=== PATIENT | male | born 1960 | race Caucasian/White ===

== ENCOUNTER 2017-05-28 12:48 | Inpatient (IN) | payer OTHER ==
[2017-05-28 13:30] VITALS: BMI 26.2
--- NOTE | 2017-05-28 13:34 | PDOC ---
History of Present Illness - General Chief Complaint: Urinary Catheter Problem Stated Complaint: URINARY CATHETER Time Seen by Provider: 05/28/17 12:54 History Source: Patient Exam Limitations: No Limitations - History of Present Illness Initial Comments: 56 yo M s/p recent placement of jaime catheter at [place] due to urinary retention. He states that due to passing a large amount of urine, he was admitted to the hospital for monitoring of ins/outs. He states that the catheter has been in place for 10 days now, and he has started to notice leakage of purulent material from his penis. The urine itself is yellow and clear, and flows freely. He denies fever, chills, but he does state he has left lower abdominal discomfort. Past History - Past Medical History Allergies/Adverse Reactions: Allergies Allergy/AdvReac Type Severity Reaction Status Date / Time Penicillins Allergy Intermediate Hives Verified 05/28/17 12:58 cat pelt standardized Allergy Verified 05/28/17 12:58 allergenic ex [Cat Pelt Std Extract] Home Medications: Ambulatory Orders Acetaminophen [Tylenol Extra Strength] 1,000 mg PO Q4H PRN 05/28/17 Amlodipine Besylate [Norvasc -] 10 mg PO DAILY 05/28/17 Ciprofloxacin HCl [Cipro] 500 mg PO BID 05/28/17 Ibuprofen [Advil -] 400 mg PO QID PRN 05/28/17 Loratadine [Claritin] 10 mg PO HS 05/28/17 Metoprolol Tartrate [Lopressor] 50 mg PO BID 05/28/17 Ranitidine [Zantac -] 150 mg PO BID 05/28/17 Tamsulosin HCl [Flomax] 0.4 mg PO HS 05/28/17 Anemia: Yes Asthma: No Cancer: Yes (PROSTATE) Cardiac Disorders: Yes (NONSUSTAINED VT) CVA: No COPD: No CHF: No Dementia: No Diabetes: No GI Disorders: No Disorders: Yes (BPH, HYDRONEPHROSIS, URINARY RETETNION, OBSTRUCTIVE UROPATHY) HTN: Yes Hypercholesterolemia: No HIV: No (TESTED MAY 2017) Liver Disease: No Seizures: No Thyroid Disease: No - Surgical History Abdominal Surgery: No Appendectomy: No Cardiac Surgery: No Cholecystectomy: No Lung Surgery: No Neurologic Surgery: No Orthopedic Surgery: Yes (01/2012) - Psycho/Social/Smoking Cessation Hx Anxiety: Yes Suicidal Ideation: No Smoking History: Former smoker Have you smoked in the past 12 months: No Number of Cigarettes Smoked Daily: 0 If you are a former smoker, when did you quit?: 1998 Information on smoking cessation initiated: No 'Breaking Loose' booklet given: 01/26/14 Hx Alcohol Use: No Drug/Substance Use Hx: No Substance Use Type: None Review of Systems - Review of Systems Able to Perform ROS?: Yes Comments:: GENERAL/CONSTITUTIONAL: No fever or chills. No weakness. HEAD, EYES, EARS, NOSE AND THROAT: No change in vision. No ear pain or discharge. No sore throat. CARDIOVASCULAR: No chest pain or shortness of breath. RESPIRATORY: No cough, wheezing, or hemoptysis. GASTROINTESTINAL: No nausea, vomiting, diarrhea or constipation. GENITOURINARY: Jaime in place, with leakage of pus from the penile head. Clear yellow urine in the bag. MUSCULOSKELETAL: No joint or muscle swelling or pain. No neck or back pain. SKIN: No rash NEUROLOGIC: No headache, vertigo, loss of consciousness, or change in strength/ sensation. ENDOCRINE: No increased thirst. No abnormal weight change. HEMATOLOGIC/LYMPHATIC: No anemia, easy bleeding, or history of blood clots. ALLERGIC/IMMUNOLOGIC: No hives or skin allergy. *Physical Exam - Vital Signs Last Vital Signs Temp Pulse Resp BP Pulse Ox 98.4 F 78 15 156/100 95 05/28/17 12:51 05/28/17 12:51 05/28/17 12:51 05/28/17 12:51 05/28/17 12:51 - Physical Exam Comments: GENERAL: Awake, alert, and fully oriented, in no acute distress HEAD: No signs of trauma EYES: PERRLA, EOMI, sclera anicteric, conjunctiva clear ENT: Auricles normal inspection, hearing grossly normal, nares patent, oropharynx clear without exudates. Moist mucosa NECK: Normal ROM, supple, no lymphadenopathy, JVD, or masses LUNGS: Breath sounds equal, clear to auscultation bilaterally. No wheezes, and no crackles HEART: Regular rate and rhythm, normal S1 and S2, no murmurs, rubs or gallops ABDOMEN: Soft, minimal LLQ tenderness, normoactive bowel sounds. No guarding, no rebound. No masses EXTREMITIES: Normal range of motion, no edema. No clubbing or cyanosis. No cords , erythema, or tenderness NEUROLOGICAL: Cranial nerves II through XII grossly intact. Normal speech, normal gait SKIN: Warm, Dry, normal turgor, no rashes or lesions noted. : No external lesions. +Passage of purulent material from the penile head, around the jaime itself. No visible lesions. ED Treatment Course - LABORATORY CBC & Chemistry Diagram: 05/28/17 14:55 05/28/17 14:55 Medical Decision Making - Medical Decision Making 05/28/17 14:43 Suspect a urethritis secondary to jaime catheter. Case d/w Dr. Laureano, ID. Recommended removing the catheter to visualize how far up the purulent material was. There was purulent material all the way to the balloon itself as I removed the catheter. I will give a dose of meropenem as per his recommendation. Will plan for admission. 05/28/17 15:52 Dr. Laureano at bedside to evaluate. Suspicion of prostatitis vs prostatic abscess. Recommended transrectal ultrasound to further evaluate. *DC/Admit/Observation/Transfer Diagnosis at time of Disposition: Urethritis, Urethral abscess, Prostatitis Problem with Jaime catheter Qualifiers: Encounter type: initial encounter Qualified Code(s): T83.9XXA - Unspecified complication of genitourinary prosthetic device, implant and graft, initial encounter - Discharge Dispostion Condition at time of disposition: Stable Admit: Yes - Referrals
[2017-05-28 13:40] LABS: PH,URINE 5.5 (4.5-8); URINE APPEARANCE Clear; URINE BILIRUBIN Negative (NEGATIVE); URINE GLUCOSE (UA) Negative (NEGATIVE); URINE KETONE Negative (NEGATIVE); URINE NITRITE Negative (NEGATIVE); URINE UROBILINOGEN 0.2 (0.2-1.0)
[2017-05-28 13:42] LABS: URINE BLOOD 2+ (NEGATIVE)
[2017-05-28 13:43] LABS: URINE COLOR YELLOW; URINE LEUK ESTERASE 1+ (NEGATIVE); URINE PROTEIN 2+ (NEGATIVE)
[2017-05-28 13:49] LABS: URINE BACTERIA FEW /hpf (NEGATIVE); URINE RBC 20-40 /hpf (0-3); URINE WBC 0-2 (3-5)
[2017-05-28] MEDS ORDERED: MEROPENEM 1 GM in DEXTROSE 5%-WATER - 100 ML IVPB ONE (14:22)
[2017-05-28 15:10] LABS: BASOPHIL 0.8 % (0-2.0); EOSINOPHIL 3.2 % (0-4.5); MCH 29.8 pg (25.7-33.7); MCHC 33.7 g/dl (32.0-35.9); MEAN CELL VOLUME 88.3 fl (80-96); MEAN PLT VOLUME 7.5 fl (7.5-11.1); NEUTROPHILS 65.2 % (42.8-82.8); PLATELET COUNT 504 K/MM3 (134-434); RDW 11.8 % (11.9-15.9); WHITE BLOOD COUNT 9.5 K/mm3 (4.0-10.8)
[2017-05-28 15:28] LABS: ALK PHOS 74 U/L (32-92); ANION GAP 4 (8-16); BILIRUBIN,TOTAL 0.4 mg/dl (0.2-1.0); CALCIUM 8.9 mg/dl (8.4-10.2); CO2 27 mmol/L (22-28); GLUCOSE,RANDOM 95 mg/dl (74-106); SGOT/AST 16 U/L (10-42); SGPT/ALT 17 U/L (10-40); TOT PROT 6.6 g/dl (6.4-8.3)
--- NOTE | 2017-05-28 16:13 | CONSULT ---
Consult Consult Specialty:: infectious diseases Reason for Consultation:: uretheral infection,abscess - History of Present Illness Chief Complaint: suprapubic pain History of Present Illness: 56 yo M s/p recent placement of jaime catheter at [place] due to urinary retention. He states that due to passing a large amount of urine, he was admitted to the hospital for monitoring of ins/outs. He states that the catheter has been in place for 10 days now, and he has started to notice leakage of purulent material from his penis. The urine itself is yellow and clear, and flows freely. He denies fever, chills, but he does state he has left lower abdominal discomfort. patient mentions that he was diagnosed with two things one was enlarged prostate and psycogenic polydipsia patient was also placed on cipro and he is currently taking the same inspite of that patient developed pus around the catheter around the penis when the the catheter was removed the pus extended to the tip of the catheter patient denies any fever or any other issues of note according to the patient is that patient had psa of 16 according to the patient and the last psa i saw on the discharge summary from [facility] was around 29 which is quite a bit of jump patient c/o of suprapubic pain - History Source History Provided By: Patient Limitations to Obtaining History: No Limitations - Alcohol/Substance Use Hx Alcohol Use: No - Smoking History Smoking history: Former smoker Have you smoked in the past 12 months: No Aproximately how many cigarettes per day: 0 If you are a former smoker, when did you quit?: 1998 Home Medications - Allergies Allergies/Adverse Reactions: Allergies Allergy/AdvReac Type Severity Reaction Status Date / Time Penicillins Allergy Intermediate Hives Verified 05/28/17 12:58 cat pelt standardized Allergy Verified 05/28/17 12:58 allergenic ex [Cat Pelt Std Extract] - Home Medications Home Medications: Ambulatory Orders Acetaminophen [Tylenol Extra Strength] 1,000 mg PO Q4H PRN 05/28/17 Amlodipine Besylate [Norvasc -] 10 mg PO DAILY 05/28/17 Ciprofloxacin HCl [Cipro] 500 mg PO BID 05/28/17 Ibuprofen [Advil -] 400 mg PO QID PRN 05/28/17 Loratadine [Claritin] 10 mg PO HS 05/28/17 Metoprolol Tartrate [Lopressor] 50 mg PO BID 05/28/17 Ranitidine [Zantac -] 150 mg PO BID 05/28/17 Tamsulosin HCl [Flomax] 0.4 mg PO HS 05/28/17 Review of Systems - Review of Systems Constitutional: reports: No Symptoms Eyes: reports: No Symptoms HENT: reports: No Symptoms Neck: reports: No Symptoms Cardiovascular: reports: No Symptoms Respiratory: reports: No Symptoms Gastrointestinal: reports: No Symptoms Genitourinary: reports: Dysuria, Pain, Other (suprapubic pain) Musculoskeletal: reports: No Symptoms Integumentary: reports: No Symptoms Neurological: reports: No Symptoms Endocrine: reports: No Symptoms Hematology/Lymphatic: reports: No Symptoms Psychiatric: reports: No Symptoms Physical Exam Vital Signs: Vital Signs Temperature 98.4 F 05/28/17 12:51 Pulse Rate 78 05/28/17 15:14 Respiratory Rate 15 05/28/17 15:14 Blood Pressure 136/76 05/28/17 15:14 O2 Sat by Pulse Oximetry (%) 97 05/28/17 15:14 Constitutional: Yes: Well Nourished, No Distress, Calm HENT: Yes: Atraumatic Neck: Yes: Supple, Trachea Midline Cardiovascular: Yes: Regular Rate and Rhythm Respiratory: Yes: Regular, CTA Bilaterally Gastrointestinal: Yes: Normal Bowel Sounds, Soft Renal/: Yes: Other (foleys removed suprapubic tenderness) Musculoskeletal: Yes: WNL Extremities: Yes: WNL Neurological: Yes: Alert, Oriented Psychiatric: Yes: Alert, Oriented Labs: CBC, BMP 05/28/17 14:55 05/28/17 14:55 Assessment/Plan 58yM with PMH enlarged prostate with elevated PSA, Anemia secondary to GI bleed , HTN, ?nonsustained VT, degenerative spinal disease presented to the ED with pus leakage around jaime catheter. Urethritis r/o prostatic abscess urinary retention HTN currently foleys is out and we will wait to see if the patient passes urine plan we will start patient on abx await all cx report urology to see the aptient u/s of the prostate repeat psa monitor for fevers and wbc rest as per primary
[2017-05-28] MEDS ORDERED: SODIUM CHLORIDE 1,000 ML IV SCH (18:30)
[2017-05-28] MEDS ORDERED: ACETAMINOPHEN 325 MG TABLET (FP) PO PRN (18:31)
[2017-05-28] MEDS: TAMSULOSIN HCL 0.4 MG CAP.ER.24H (FP) PO SCH (21:27)
[2017-05-28] MEDS: METOPROLOL TARTRATE 50 MG TABLET (FP) PO SCH (21:27)
[2017-05-28] MEDS: RANITIDINE HCL 150 MG TABLET (FP) PO SCH (21:27)
[2017-05-28] MEDS: LORATADINE 10 MG TABLET PO SCH (21:27)
--- NOTE | 2017-05-28 22:13 | HP ---
CHIEF COMPLAINT: pus around jaime catheter PCP: Vikram Hobbs HISTORY OF PRESENT ILLNESS: This is a 56 year old male with a past medical history of elevated PSA and enlarged prostate, never worked up, HTN, non sustained VT, anemia secondary to GI bleed, degenerative spinal disease presented to the ED with pus coming from around his jaime cathter. Pt was hospitalized at [facility] from 05/18-05/24 with urinary retention; he reports a CT and sonogram of his bladder was done there which showed hydronephrosis and 20% kidney function reduction. He was discharged home with a jaime catheter in place and started on flomax and cipro. He was also restarted on his BP medications (he had stopped them due to financial concerns). Pt reports that he had fever and chills prior to his hospitalization there but none since discharge, only extreme fatigue. Pt also reports intermittent abdominal pain. He reports that his back pain has been recurring due to his frequent trips to the bathroom and sitting on the toilet. Pt reports constipation at times, worsening prior to hospitalization at [facility], ultimately required disimpaction as per pt. Last BM this am, normal. ER course was notable for: (1) WBC 9.5 (2) FC removed with pus noted to balloon head Recent Travel: pt denies PAST MEDICAL HISTORY: Urinary retention, elevated PSA, enlarged prostate Anemia due to GI bleed 2014 Nonsustained VT (as per ED note, pt unsure if he ever had it) HTN degenerative spinal disease PAST SURGICAL HISTORY: L4-L5 fusion cyst removed from groin Social History: Smoking: quit 8.5y ago, previous 45 pack year history Alcohol: pt denies Drugs: pt denies Family History: Father age 80, sudden cardiac , prostate CA age 68, radical prostatectomy, OA, DM, Alzheimers Mother age 84, sepsis, CVA, HTN, gallstones sister alive, back problems, HTN Brother alive, DM, HTN Brother alive, renal colic and renal issues Allergies Penicillins Allergy (Intermediate, Verified 05/28/17 12:58) Hives cat pelt standardized allergenic ex [Cat Pelt Std Extract] Allergy (Verified 12:58) HOME MEDICATIONS: 3 Medication Instructions Recorded Acetaminophen [Tylenol Extra 1,000 mg PO Q4H PRN 05/28/17 Strength] Amlodipine Besylate [Norvasc -] 10 mg PO DAILY 05/28/17 Ciprofloxacin HCl [Cipro] 500 mg PO BID 05/28/17 Ibuprofen [Advil -] 400 mg PO QID PRN 05/28/17 Loratadine [Claritin] 10 mg PO HS 05/28/17 Metoprolol Tartrate [Lopressor] 50 mg PO BID 05/28/17 Ranitidine [Zantac -] 150 mg PO BID 05/28/17 Tamsulosin HCl [Flomax] 0.4 mg PO HS 05/28/17 REVIEW OF SYSTEMS CONSTITUTIONAL: Absent: fever, chills, diaphoresis, generalized weakness, malaise, loss of appetite, weight change HEENT: Absent: rhinorrhea, nasal congestion, throat pain, throat swelling, difficulty swallowing, mouth swelling, ear pain, eye pain, visual changes CARDIOVASCULAR: Absent: chest pain, syncope, palpitations, irregular heart rate, lightheadedness , peripheral edema RESPIRATORY: Absent: cough, shortness of breath, dyspnea with exertion, orthopnea, wheezing, stridor, hemoptysis GASTROINTESTINAL: Present: abdominal pain Absent: abdominal distension, nausea, vomiting, diarrhea, constipation, melena, hematochezia GENITOURINARY: Present: dysuria, frequency, urgency, hesitancy Absent: hematuria, flank pain, genital pain MUSCULOSKELETAL: back pain Absent: myalgia, arthralgia, joint swelling, neck pain SKIN: Absent: rash, itching, pallor HEMATOLOGIC/IMMUNOLOGIC: Absent: easy bleeding, easy bruising, lymphadenopathy, frequent infections ENDOCRINE: Absent: unexplained weight gain, unexplained weight loss, heat intolerance, cold intolerance NEUROLOGIC: Absent: headache, focal weakness or paresthesias, dizziness, unsteady gait, seizure, mental status changes, bladder or bowel incontinence PSYCHIATRIC: Absent: anxiety, depression, suicidal or homicidal ideation, hallucinations. PHYSICAL EXAMINATION Vital Signs - 24 hr 3 05/28/17 05/28/17 05/28/17 05/28/17 12:51 15:14 16:25 21:00 Temperature 98.4 F 98.6 F Pulse Rate 78 77 Pulse Rate [ 78 Right Radial] Respiratory 15 15 16 16 Rate Blood Pressure 156/100 152/92 Blood Pressure 136/76 [Left Arm] O2 Sat by Pulse 95 97 97 Oximetry (%) GENERAL: Awake, alert, and fully oriented, in no acute distress. HEAD: Normal with no signs of trauma. EYES: Pupils equal, round and reactive to light, extraocular movements intact, sclera anicteric, conjunctiva clear. No lid lag. EARS, NOSE, THROAT: Ears normal, nares patent, oropharynx clear without exudates. Moist mucous membranes. NECK: Normal range of motion, supple without lymphadenopathy, JVD, or masses. LUNGS: Breath sounds equal, clear to auscultation bilaterally. No wheezes, and no crackles. No accessory muscle use. HEART: Regular rate and rhythm, normal S1 and S2 without murmur, rub or gallop. ABDOMEN: Soft, not distended, normoactive bowel sounds, no guarding, no rebound , no masses. No hepatomegaly or splenomegaly. tender RLQ on deep palpation MUSCULOSKELETAL: Normal range of motion at all joints. No bony deformities or tenderness. No CVA tenderness. UPPER EXTREMITIES: 2+ pulses, warm, well-perfused. No cyanosis. No clubbing. No peripheral edema. LOWER EXTREMITIES: 2+ pulses, warm, well-perfused. No calf tenderness. No peripheral edema. NEUROLOGICAL: Cranial nerves II-XII intact. Normal speech. Normal gait. PSYCHIATRIC: Cooperative. Good eye contact. Appropriate mood and affect. SKIN: Warm, dry, normal turgor, no rashes or lesions noted, normal capillary refill. Laboratory Results - last 24 hr 3 05/28/17 05/28/17 05/28/17 13:30 14:55 14:55 WBC 9.5 D RBC 4.83 D Hgb 14.4 D Hct 42.7 D MCV 88.3 MCH 29.8 MCHC 33.7 RDW 11.8 L D Plt Count 504 H MPV 7.5 D Neutrophils % 65.2 Lymphocytes % 22.1 Monocytes % 8.7 Eosinophils % 3.2 D Basophils % 0.8 D Sodium 138 Potassium 4.5 D Chloride 107 Carbon Dioxide 27 Anion Gap 4 L BUN 16 D Creatinine 1.0 D Creat Clearance w eGFR > 60 Random Glucose 95 D Calcium 8.9 Total Bilirubin 0.4 AST 16 ALT 17 Alkaline Phosphatase 74 D Total Protein 6.6 D Albumin 4.0 D Urine Color Yellow Urine Appearance Clear Urine pH 5.5 Ur Specific Heppner 1.015 Urine Protein 2+ H Urine Glucose (UA) Negative Urine Ketones Negative Urine Blood 2+ H Urine Nitrite Negative Urine Bilirubin Negative Urine Urobilinogen 0.2 Ur Leukocyte Esterase 1+ H Urine RBC 20-40 Urine WBC 0-2 Urine Bacteria Few ASSESSMENT/PLAN: 58yM with PMH enlarged prostate with elevated PSA, Anemia secondary to GI bleed , HTN, ?nonsustained VT, degenerative spinal disease presented to the ED with pus leakage around jaime catheter. Urethritis vs prostate abscess - transrectal US ordered for tomorrow - ID consult appreciated, cont meropenem - urology consult urinary retention - FC removed by ED, no urine output, bladder scan 800, FC replaced - cont FC HTN - cont metoprolol, norvasc, BP slightly elevated, cont to monitor and adjust back pain/degenerative spinal disease - will start trial of flexeril 5mg BID and titrate to effect - no nSAIDs given possible need for surgical intervention of prostate Chronic constipation - miralax PRN DVT PPX - heparin 5000u BID FEN - pt tolerating po intake, dc IVF - BMP in am - low sodium diet Dispo: Pt currently requires inpatient management for his emergent condition. Visit type - Emergency Visit Emergency Visit: Yes ED Registration Date: 05/28/17 Care time: The patient presented to the Emergency Department on the above date and was hospitalized for further evaluation of their emergent condition. - New Patient This patient is new to me today: Yes Date on this admission: 05/28/17 - Critical Care Critical Care patient: No
[2017-05-28] MEDS ORDERED: POLYETHYLENE GLYCOL 3350 119 GM BTL PO PRN (23:33)
[2017-05-28] MEDS: CYCLOBENZAPRINE HCL 10 MG TABLET (FP) PO SCH (23:53)
[2017-05-29] MEDS: MEROPENEM 1 GM in DEXTROSE 5%-WATER - 100 ML IVPB SCH ×3 (01:14→17:27)
--- NOTE | 2017-05-29 08:34 | PN ---
Physical Exam: SUBJECTIVE: Patient seen and examined, reports feeling well, denies any tactile fever or chills. OBJECTIVE: Patient is a 56 year old male with a past medical history of elevated PSA and enlarged prostate, HTN, non sustained VT, anemia secondary to GI bleed, degenerative spinal disease. Patient was recently discharged from [facility] on 05/24/17 following a 6 day admission for obstructive uropathy secondary to enlarged prostate. Patient was admitted from the emergency department for urinary retention. Vital Signs Period Temp Pulse Resp BP Sys/Cordero Pulse Ox Last 24 Hr 98.5 F-98.7 F 75-82 16-20 129-150/60-76 96-97 PHYSICAL EXAM GENERAL: The patient is awake, alert, and fully oriented, in no acute distress. HEAD: Normal with no signs of trauma. EYES: PERRL, extraocular movements intact, sclera anicteric, conjunctiva clear. No ptosis. ENT: Ears normal, nares patent, oropharynx clear without exudates, moist mucous membranes. NECK: Trachea midline, full range of motion, supple. LUNGS: Breath sounds equal, clear to auscultation bilaterally, no wheezes, no crackles, no accessory muscle use. HEART: Regular rate and rhythm, S1, S2 without murmur, rub or gallop. ABDOMEN: Soft, nontender, nondistended, normoactive bowel sounds, no guarding, no rebound, no hepatosplenomegaly, no masses. + Suprapubic tenderness, yellow urine with sediment draining EXTREMITIES: 2+ pulses, warm, well-perfused, no edema. NEUROLOGICAL: Cranial nerves II through XII grossly intact. Normal speech, gait not observed. PSYCH: Normal mood, normal affect. SKIN: Warm, dry, normal turgor, no rashes or lesions noted Active Medications Generic Name Dose Route Start Last Admin Trade Name Freq PRN Reason Stop Dose Admin Acetaminophen 650 mg 05/28/17 18:31 Tylenol - PO Q4H PRN FEVER OR PAIN Amlodipine Besylate 10 mg 05/29/17 10:00 Norvasc - PO DAILY ORIN Cyclobenzaprine HCl 5 mg 05/28/17 23:45 05/28/17 23:53 Flexeril - PO 5 mg BID ORIN Administration Heparin Sodium (Porcine) 5,000 unit 05/29/17 10:00 Heparin - SQ BID ORIN Meropenem 1 gm/ Dextrose 100 mls @ 100 mls/hr 05/29/17 02:00 05/29/17 01:14 IVPB 100 mls/hr Q8H-IV ORIN Administration Protocol Sodium Chloride 1,000 mls @ 75 mls/hr 05/28/17 18:30 05/28/17 19:00 Normal Saline - IV 75 mls/hr ASDIR ORIN Administration Loratadine 10 mg 05/28/17 22:00 05/28/17 21:27 Claritin - PO 10 mg HS ORIN Administration Metoprolol Tartrate 50 mg 05/28/17 22:00 05/28/17 21:27 Lopressor - PO 50 mg BID ORIN Administration Polyethylene Glycol 17 gm 05/28/17 23:33 Miralax (For Daily Use) - PO DAILY PRN CONSTIPATION Ranitidine HCl 150 mg 05/28/17 22:00 05/28/17 21:27 Zantac - PO 150 mg BID ORIN Administration Tamsulosin HCl 0.4 mg 05/28/17 22:00 05/28/17 21:27 Flomax - PO 0.4 mg HS ORIN Administration ASSESSMENT/PLAN: 1) urinary retention - continue folley cather - continue flomax - strict i/o - pending ultrasound of kidney/bladder Urethritis - unlikely prostate abscess, pt is not toxic appearing - pending urine culture - gonnorhea/chlamydia ordered - continue meropenum as per ID (Georgi) - appreciate the input of urology 2) card HTN - continue metoprolol and norvasc - b/p at goal 3)musc back pain/degenerative spinal disease - flexeril tid prn DVT PPX - heparin 5000u BID FEN - pt tolerating po intake, dc IVF - low sodium diet Dispo: Pt currently requires inpatient management for his emergent condition. Visit type - Emergency Visit Emergency Visit: Yes ED Registration Date: 05/28/17 Care time: The patient presented to the Emergency Department on the above date and was hospitalized for further evaluation of their emergent condition. - New Patient This patient is new to me today: Yes Date on this admission: 05/29/17 - Critical Care Critical Care patient: No - Discharge Referral Referred to [facility] Med P.C.: No
[2017-05-29 09:32] LABS: BASOPHIL 0.4 % (0-2.0); EOSINOPHIL 3.7 % (0-4.5); MCHC 33.7 g/dl (32.0-35.9); MEAN CELL VOLUME 89.1 fl (80-96); MEAN PLT VOLUME 7.9 fl (7.5-11.1); NEUTROPHILS 65.4 % (42.8-82.8); PLATELET COUNT 478 K/MM3 (134-434); RDW 11.8 % (11.9-15.9); WHITE BLOOD COUNT 11.4 K/mm3 (4.0-10.8)
[2017-05-29] MEDS ORDERED: PT OWN MED DRAWER 7, Y5N ONE ×2 (09:32→17:19)
[2017-05-29] MEDS: CYCLOBENZAPRINE HCL 10 MG TABLET (FP) PO SCH (09:38)
[2017-05-29] MEDS: amLODIPine BESYLATE 10 MG TABLET (FP) PO SCH (09:39)
[2017-05-29] MEDS: METOPROLOL TARTRATE 50 MG TABLET (FP) PO SCH ×2 (09:39→21:24)
[2017-05-29] MEDS: RANITIDINE HCL 150 MG TABLET (FP) PO SCH ×2 (09:39→21:24)
[2017-05-29] MEDS: HEPARIN NA (PORCINE) 5,000 UNITS/ML 1ML VIAL SQ SCH ×2 (09:40→21:24)
[2017-05-29] MEDS ORDERED: CYCLOBENZAPRINE HCL 10 MG TABLET (FP) PO PRN (09:56)
[2017-05-29 10:03] LABS: ANION GAP 5 (8-16); CO2 27 mmol/L (22-28); CREATININE 0.9 mg/dl (0.6-1.3); GLUCOSE,RANDOM 141 mg/dl (74-106); MAGNESIUM 1.9 mg/dL (1.8-2.4); PHOSPHOROUS 2.5 mg/dl (2.5-4.6)
--- NOTE | 2017-05-29 11:32 | PN ---
Progress Note, Physician History of Present Illness: patient had no luck passing urine had to be recatherized patient is putting out a lot of urine which is not normal currently c/o of increased suprapubic pain no fevers but wbc has increased - Current Medication List Current Medications: Active Medications Acetaminophen (Tylenol -) 650 mg PO Q4H PRN PRN Reason: FEVER OR PAIN Amlodipine Besylate (Norvasc -) 10 mg PO DAILY [facility] Last Admin: 05/29/17 09:39 Dose: 10 mg Cyclobenzaprine HCl (Flexeril -) 5 mg PO TID PRN PRN Reason: MUSCLE SPASMS Heparin Sodium (Porcine) (Heparin -) 5,000 unit SQ BID [facility] Last Admin: 05/29/17 09:40 Dose: Not Given Meropenem 1 gm/ Dextrose 100 mls @ 100 mls/hr IVPB Q8H-IV [facility] PRN Reason: Protocol Last Admin: 05/29/17 09:39 Dose: 100 mls/hr Loratadine (Claritin -) 10 mg PO [facility] Last Admin: 05/28/17 21:27 Dose: 10 mg Metoprolol Tartrate (Lopressor -) 50 mg PO BID [facility] Last Admin: 05/29/17 09:39 Dose: 50 mg Polyethylene Glycol (Miralax (For Daily Use) -) 17 gm PO DAILY PRN PRN Reason: CONSTIPATION Ranitidine HCl (Zantac -) 150 mg PO BID [facility] Last Admin: 05/29/17 09:39 Dose: 150 mg Tamsulosin HCl (Flomax -) 0.4 mg PO [facility] Last Admin: 05/28/17 21:27 Dose: 0.4 mg - Objective Vital Signs: Vital Signs Temperature 98.5 F 05/29/17 06:00 Pulse Rate 75 05/29/17 06:00 Respiratory Rate 20 05/29/17 06:00 Blood Pressure 129/66 05/29/17 06:00 O2 Sat by Pulse Oximetry (%) 97 05/29/17 08:16 Constitutional: Yes: No Distress, Calm Cardiovascular: Yes: Regular Rate and Rhythm Respiratory: Yes: Regular, CTA Bilaterally Gastrointestinal: Yes: Normal Bowel Sounds, Soft Genitourinary: Yes: Jaime Present, Other (suprapubic pain) Musculoskeletal: Yes: WNL Extremities: Yes: WNL Neurological: Yes: Alert, Oriented Psychiatric: Yes: Alert, Other Labs: CBC, BMP 05/29/17 09:05 05/29/17 09:05 Assessment/Plan 58yM with PMH enlarged prostate with elevated PSA, Anemia secondary to GI bleed , HTN, ?nonsustained VT, degenerative spinal disease presented to the ED with pus leakage around jaime catheter. Urethritis r/o prostatic abscess urinary retention HTN plan continue abx await for all reports await urology to see the patient rest as per primary
[2017-05-29 12:32] LABS: INR 1.19 (0.82-1.09); PROTHROMBIN TIME (PATIENT) 13.3 SEC (10.2-13.0)
--- NOTE | 2017-05-29 14:03 | CON.GU ---
Consult Consult Specialty:: Urology Referred by:: Filomena Reason for Consultation:: urethral discharge - History of Present Illness Chief Complaint: pus draining around jaime History of Present Illness: 56 yo m w PMH elevated PSA, BPH, HTN, VT, anemia d/t GI bleed, DDD pres to ED c/ o pus around jaime cath. P was hopspitalized recently for urinary retention and jaime was inserted. He was discharged on cipro and flomax. His jaime was removed in the ED and he failed to void and jaime was reinserted. cons called to r/o prostatic abscess vs urethritis. - History Source History Provided By: Patient, Medical Record Limitations to Obtaining History: No Limitations - Past Medical History Renal/: Yes: BPH - Alcohol/Substance Use Hx Alcohol Use: No - Smoking History Smoking history: Former smoker Have you smoked in the past 12 months: No Aproximately how many cigarettes per day: 0 If you are a former smoker, when did you quit?: 1998 Home Medications - Allergies Allergies/Adverse Reactions: Allergies Allergy/AdvReac Type Severity Reaction Status Date / Time Penicillins Allergy Intermediate Hives Verified 05/28/17 12:58 cat pelt standardized Allergy Verified 05/28/17 12:58 allergenic ex [Cat Pelt Std Extract] - Home Medications Home Medications: Ambulatory Orders Acetaminophen [Tylenol Extra Strength] 1,000 mg PO Q4H PRN 05/28/17 Amlodipine Besylate [Norvasc -] 10 mg PO DAILY 05/28/17 Ciprofloxacin HCl [Cipro] 500 mg PO BID 05/28/17 Ibuprofen [Advil -] 400 mg PO QID PRN 05/28/17 Loratadine [Claritin] 10 mg PO HS 05/28/17 Metoprolol Tartrate [Lopressor] 50 mg PO BID 05/28/17 Ranitidine [Zantac -] 150 mg PO BID 05/28/17 Tamsulosin HCl [Flomax] 0.4 mg PO HS 05/28/17 Family Disease History - Family Disease History Family Disease History: Other: Father (prostate cancer) Review of Systems - Review of Systems Genitourinary: reports: Discharge Physical Exam- Vital Signs: Vital Signs Temperature 98.5 F 05/29/17 06:00 Pulse Rate 75 05/29/17 06:00 Respiratory Rate 20 05/29/17 06:00 Blood Pressure 129/66 05/29/17 06:00 O2 Sat by Pulse Oximetry (%) 97 05/29/17 08:16 Constitutional: Yes: Well Nourished, No Distress, Calm Gastrointestinal: Yes: WNL, Normal Bowel Sounds, Soft Renal/: Yes: Jaime Present, Other (no urethral disch) Pelvis: Yes: WNL Testicles: Yes: WNL, Descended Scrotum: Yes: WNL Penis: Yes: WNL Prostate Exam: Yes: Firm, Swollen Musculoskeletal: Yes: WNL Extremities: Yes: WNL Labs: CBC, BMP 05/29/17 09:05 05/29/17 09:05 Imaging - Results Ultrasound: Report Reviewed Assessment/Plan Imp: urethritis vs prostatic abscess (doubt) vs prostatitis, BPH, elevated PSA, microscopic hematuria. leukocytosis, + FH CA prostate Rec: cont abxs, jaime and tamsulosin, f/u in my office after disch (with jaime) for cystoscopy, TRUS, uroflow, PVR. He may need greenlight laser ablation vs urolift vs TURP. He will need prostate bx.
[2017-05-29] MEDS: LORATADINE 10 MG TABLET PO SCH (21:24)
[2017-05-29] MEDS: TAMSULOSIN HCL 0.4 MG CAP.ER.24H (FP) PO SCH (21:24)
[2017-05-30] MEDS: MEROPENEM 1 GM in DEXTROSE 5%-WATER - 100 ML IVPB SCH ×2 (02:00→10:11)
[2017-05-30] MEDS ORDERED: PT OWN MED DRAWER 7, Y5N ONE ×2 (03:21→03:25)
--- NOTE | 2017-05-30 08:58 | DS ---
Physical Exam: SUBJECTIVE: Patient seen and examined,patient reports feeling well, denies any tactile fever. OBJECTIVE: Patient is a 56 year old male with a past medical history of elevated PSA and enlarged prostate, never worked up, HTN, non sustained VT, anemia secondary to GI bleed, degenerative spinal disease presented to the ED with pus coming from around his jaime cathter. Pt was hospitalized at [facility] from 05/18-05/24 with urinary retention; he reports a CT and sonogram of his bladder was done there which showed hydronephrosis and 20% kidney function reduction. He was discharged home with a jaime catheter in place and started on flomax and cipro. He was also restarted on his BP medications (he had stopped them due to financial concerns). Pt reports that he had fever and chills prior to his hospitalization there but none since discharge, only extreme fatigue. Pt also reports intermittent abdominal pain. He reports that his back pain has been recurring due to his frequent trips to the bathroom and sitting on the toilet. Pt reports constipation at times, worsening prior to hospitalization at [place], ultimately required disimpaction as per pt. Last BM this am, normal. ER course was notable for: (1) WBC 9.5 (2) FC removed with pus noted to balloon head Vital Signs Period Temp Pulse Resp BP Sys/Cordero Pulse Ox Last 24 Hr 98.2 F-98.6 F 78-87 18-18 123-137/65-76 96-99 PHYSICAL EXAM GENERAL: The patient is awake, alert, and fully oriented, in no acute distress. HEAD: Normal with no signs of trauma. EYES: PERRL, extraocular movements intact, sclera anicteric, conjunctiva clear. ENT: Ears normal, nares patent, oropharynx clear without exudates, moist mucous membranes. NECK: Trachea midline, full range of motion, supple. LUNGS: Breath sounds equal, clear to auscultation bilaterally, no wheezes, no crackles, no accessory muscle use. HEART: Regular rate and rhythm, S1, S2 without murmur, rub or gallop. ABDOMEN: Soft, nontender, nondistended, normoactive bowel sounds, no guarding, no rebound, no hepatosplenomegaly, no masses. + suprapubic discomfort, negative cva tenderness bilaterally. jaime cater intact, clear yellow urine draining. EXTREMITIES: 2+ pulses, warm, well-perfused, no edema. NEUROLOGICAL: Cranial nerves II through XII grossly intact. Normal speech, gait not observed. PSYCH: Normal mood, normal affect. SKIN: Warm, dry, normal turgor, no rashes or lesions noted. LABS Laboratory Results - last 24 hr 05/29/17 05/29/17 05/29/17 09:00 09:05 09:05 WBC 11.4 H RBC 4.77 Hgb 14.3 Hct 42.5 MCV 89.1 MCH 30.0 MCHC 33.7 RDW 11.8 L Plt Count 478 H MPV 7.9 Neutrophils % 65.4 Lymphocytes % 21.9 Monocytes % 8.6 Eosinophils % 3.7 Basophils % 0.4 INR 1.19 Sodium 137 Potassium 4.1 Chloride 105 Carbon Dioxide 27 Anion Gap 5 L BUN 13 Creatinine 0.9 Random Glucose 141 H D Calcium 9.0 Phosphorus 2.5 Magnesium 1.9 Microbiology 05/28/17 13:30 Urine - Urine Jaime Urine Culture - Final NO GROWTH OBTAINED IMAGING ultrasound of kidney/bladder: unremarkable kidneys HOSPITAL COURSE: Patient was admitted from the emergency department for urinary retention and urethritis. Patient arrived from the emergency deparment with a jaime cather which was removed upon arrival. Patient was noted to have uriinary retention and jaime cather was placed. urine culture is resulted as negative, pending wound culture. Gonnorhea and chlyamdia is pending. Patient was treated with meropenem for 48 hours, ID physician, Dr Laureano was consulted. Dr Mario, urology was consulted, recommend discharge with strict outpatient follow up in the office for urodynamic studies and cystocopy with prostate biopsy. Patient has a past medical history of hypertension, metoprolol and norvasc was continued blood pressure remained at goal. patient has a past medical history of degenerative spinal disease. flexeril tid prn was given with relief. PLAN * discharge home with strict follow up with urology, Dr Mario on MondayJune 12 at 1145am * continue ciprofloxacin daily * resume all medications * return precautions reviewed, ie chest pain, shortness of breath, fever Date of Admission:05/28/17 Date of Discharge: 05/30/17 Minutes to complete discharge: 45 Discharge Summary Reason For Visit: URETHRITIS & PROSTATE ABSCESS Current Active Problems Problem with Jaime catheter (Acute) Prostatitis (Acute) Urethral abscess (Acute) Urethritis (Acute) Condition: Stable - Instructions Diet, Activity, Other Instructions: resume regular low sodium diet you have a scheduled appointment with Dr Mario, urology, 06/12/17 at 1145am continue taking antibiotics as prescribed keep jaime in place, do no remove jaime cather until you are evaluated by the urologist use leg bag during the day and use drainage bag when you are lying down if fever, chest pain, vomiting, or shortness of breath develops please return to the emergency department Referrals: Ruba Justice MD [Primary Care Provider] - Domingo Mario MD [Staff Physician] - Disposition: HOME - Home Medications Comprehensive Discharge Medication List: Ambulatory Orders Acetaminophen [Tylenol Extra Strength] 1,000 mg PO Q4H PRN 05/28/17 Amlodipine Besylate [Norvasc -] 10 mg PO DAILY 05/28/17 Ciprofloxacin HCl [Cipro] 500 mg PO BID 05/28/17 Ibuprofen [Advil -] 400 mg PO QID PRN 05/28/17 Loratadine [Claritin] 10 mg PO HS 05/28/17 Metoprolol Tartrate [Lopressor] 50 mg PO BID 05/28/17 Ranitidine [Zantac -] 150 mg PO BID 05/28/17 Tamsulosin HCl [Flomax] 0.4 mg PO HS 05/28/17 This patient is new to me today: No Emergency Visit: Yes ED Registration Date: 05/28/17 Care time: The patient presented to the Emergency Department on the above date and was hospitalized for further evaluation of their emergent condition. Critical Care patient: No - Discharge Referral Referred to [facility] Med [facility].C[facility] Yes Physician Referral: Ruba Justice MD ([facility])
--- NOTE | 2017-05-30 09:23 | EKG ---
Test Reason : Blood Pressure : / mmHG Vent. Rate : 072 BPM Atrial Rate : 072 BPM P-R Int : 148 ms QRS Dur : 102 ms QT Int : 394 ms P-R-T Axes : -01 015 032 degrees QTc Int : 431 ms NORMAL SINUS RHYTHM WHEN COMPARED WITH ECG OF 27-JAN-2014 09:25, NO SIGNIFICANT CHANGE WAS FOUND Confirmed by MD JENSEN MARJORY ([id number]) on 05/30/2017 9:23:38 AM Referred By: Shruti MAHAN Confirmed By:RICHI JENSEN MD
[2017-05-30 10:10] VITALS: BP 109/85; PULSE 100; TEMP 98.1
[2017-05-30] MEDS: RANITIDINE HCL 150 MG TABLET (FP) PO SCH (10:10)
[2017-05-30] MEDS: METOPROLOL TARTRATE 50 MG TABLET (FP) PO SCH (10:10)
[2017-05-30] MEDS: HEPARIN NA (PORCINE) 5,000 UNITS/ML 1ML VIAL SQ SCH (10:11)
[2017-05-30] MEDS: amLODIPine BESYLATE 10 MG TABLET (FP) PO SCH (10:15)
== END 2017-05-30 13:10 | disposition home or self-care (01) | DRG 466 ==
LOC: FER 12:48 → FM/S 16:25
PROVIDERS: ADMIT Internal Medicine; ATTEND Nurse Practitioner Family
DX: T83.518A Infection and inflammatory reaction due to other urinary catheter, initial encounter (principal); Y84.6 Urinary catheterization as the cause of abnormal reaction of the patient, or of later complication, without mention of misadventure at the time of the procedure; B95.7 Other staphylococcus as the cause of diseases classified elsewhere; N40.1 Benign prostatic hyperplasia with lower urinary tract symptoms; R33.8 Other retention of urine; N13.8 Other obstructive and reflux uropathy; I10 Essential (primary) hypertension; D64.9 Anemia, unspecified; N34.2 Other urethritis; M51.36 Other intervertebral disc degeneration, lumbar region; Z98.1 Arthrodesis status; Z87.891 Personal history of nicotine dependence; K59.09 Other constipation; I47.1 Supraventricular tachycardia
CPT/HCPCS: 36415; 76775-TC; 76856-TC; 80048; 80053; 81003; 81015; 83735; 84100; 85025; 85610; 87070; 87086; 87186; 87205; 87491; 87591; 93005; 99283-25; J1644

== ENCOUNTER 2017-06-09 16:48 | Inpatient (IN) | payer OTHER ==
--- NOTE | 2017-06-09 17:15 | PDOC ---
History of Present Illness - General Chief Complaint: Urinary Catheter Problem Stated Complaint: uti? Time Seen by Provider: 06/09/17 16:49 History Source: Patient Exam Limitations: No Limitations - History of Present Illness Initial Comments: 06/09/17 17:13 Patient is a 56M with a history of urinary retention (hospitalized 05/18-05/24) and UTI (admitted on 05/28) here today complaining of increased UTI symptoms. He is complaining about increased discharge around the catheter and pain with the jaime. He also is complaining of suprapubic pain and burning around the catheter. He denies nausea, vomiting, fevers and chills. He was admitted on for a UTI showing multi-drug resistance, where he was given meropenem as an inpatient and given cipro as an outpatient. Past History - Past Medical History Allergies/Adverse Reactions: Allergies Allergy/AdvReac Type Severity Reaction Status Date / Time Penicillins Allergy Intermediate Hives Verified 06/09/17 16:49 cat pelt standardized Allergy Verified 06/09/17 16:49 allergenic ex [Cat Pelt Std Extract] Home Medications: Ambulatory Orders Amlodipine Besylate [Norvasc -] 10 mg PO DAILY 05/28/17 Ciprofloxacin HCl [Cipro] 500 mg PO BID 05/28/17 Ibuprofen [Advil -] 400 mg PO QID PRN 05/28/17 Loratadine [Claritin] 10 mg PO HS 05/28/17 Metoprolol Tartrate [Lopressor] 50 mg PO BID 05/28/17 Ranitidine [Zantac -] 150 mg PO BID 05/28/17 Tamsulosin HCl [Flomax] 0.4 mg PO HS 05/28/17 Acetaminophen [Tylenol .Regular Strength -] 650 mg PO Q4H PRN #0 tablet Polyethylene Glycol 3350 [Miralax 119 gm Btl -] 17 gm PO DAILY PRN #1 bottle Anemia: Yes Asthma: No Cancer: Yes (PROSTATE) Cardiac Disorders: Yes (NONSUSTAINED VT) CVA: No COPD: No CHF: No Dementia: No Diabetes: No GI Disorders: No Disorders: Yes (BPH, HYDRONEPHROSIS, URINARY RETETNION, OBSTRUCTIVE UROPATHY) HTN: Yes Hypercholesterolemia: No HIV: No (TESTED MAY 2017) Liver Disease: No Seizures: No Thyroid Disease: No - Surgical History Abdominal Surgery: No Appendectomy: No Cardiac Surgery: No Cholecystectomy: No Lung Surgery: No Neurologic Surgery: No Orthopedic Surgery: Yes (01/2012) - Psycho/Social/Smoking Cessation Hx Anxiety: Yes Suicidal Ideation: No Smoking History: Former smoker Have you smoked in the past 12 months: No Number of Cigarettes Smoked Daily: 0 If you are a former smoker, when did you quit?: 1998 'Breaking Loose' booklet given: 01/26/14 Hx Alcohol Use: No Drug/Substance Use Hx: No Substance Use Type: None Review of Systems - Review of Systems Comments:: 06/09/17 17:44 GENERAL/CONSTITUTIONAL: No fever or chills. No weakness. HEAD, EYES, EARS, NOSE AND THROAT: No change in vision. No sore throat. CARDIOVASCULAR: No chest pain or shortness of breath RESPIRATORY: No cough, wheezing GASTROINTESTINAL: No nausea, vomiting, or diarrhea. Positive for constipation. GENITOURINARY: Increased pus discharge around jaime MUSCULOSKELETAL: No joint or muscle swelling or pain. Positive for lower back pain SKIN: No rash NEUROLOGIC: No headache, vertigo, loss of consciousness, or change in strength/ sensation. *Physical Exam - Physical Exam Comments: 06/09/17 17:45 GENERAL: Awake, alert, and fully oriented, in no acute distress HEAD: No signs of trauma, normocephalic, atraumatic EYES: PERRLA, EOMI, sclera anicteric, conjunctiva clear ENT: Auricles normal inspection, hearing grossly normal, nares patent Moist mucosa LUNGS: No distress, speaks full sentences, clear to auscultation bilaterally HEART: Regular rate and rhythm, normal S1 and S2, no murmurs, rubs or gallops, peripheral pulses normal and equal bilaterally. ABDOMEN: Soft, nontender, normoactive bowel sounds. No guarding, no rebound. No masses EXTREMITIES: Normal inspection, Normal range of motion, no edema. No clubbing or cyanosis. NEUROLOGICAL: Cranial nerves II through XII grossly intact. Normal speech, normal gait SKIN: Warm, Dry, normal turgor, no rashes or lesions noted. : No pus noted around urethral meatus, several bloody clots in urine Medical Decision Making - Medical Decision Making 06/09/17 17:48 56M with jaime in place and history of multidrug resistant UTI, here today complaining of increase in UTI symptoms. Vital signs stable and normal. CBC, CMP , Blood cultures, UA and urine culture, and lactate sent out. Anticipate a positive result on a UTI requiring broad spectrum treatment and admission. Will consult urology and ID after workup is complete.
--- NOTE | 2017-06-09 17:38 | PDOC ---
Attending Attestation - Resident Resident Name: Jovani Negro - ED Attending Attestation I have performed the following: I have examined & evaluated the patient, The case was reviewed & discussed with the resident, I agree w/resident's findings & plan, Exceptions are as noted - HPI HPI: 06/09/17 17:37 56-year-old male with past medical history of elevated PSA, BPH, hypertension, anemia, nonsustained V. tach presents with possible around the catheter. Patient was recently discharged in May 28 and was discharged with Joshi catheter for a multidrug resistant urinary tract infection. Patient is on prophylactic Cipro. However, last several days, the patient start develop pus around the Joshi catheter site. Denies fevers or chills. Denies abdominal pain. For catheter still draining. As of note, approximately 3 days ago, patient had actually stepped on his Joshi bag and pulled the Joshi catheter little bit and had some small amounts of blood in the catheter but reports that the catheter still working. - Physicial Exam PE: 06/09/17 17:37 GENERAL: Awake, alert, and fully oriented, in no acute distress. HEAD: No signs of trauma EYES: PERRLA, EOMI, sclera anicteric, conjunctiva clear ENT: Auricles normal inspection, hearing grossly normal, nares patent, oropharynx clear without exudates. NECK: Normal ROM, supple, no lymphadenopathy, JVD, or masses LUNGS: Breath sounds equal, clear to auscultation bilaterally. No wheezes, and no crackles HEART: Regular rate and rhythm, normal S1 and S2, no murmurs, rubs or gallops ABDOMEN: Soft, nontender, normoactive bowel sounds. No guarding, no rebound. No masses EXTREMITIES: Normal range of motion, no edema. No clubbing or cyanosis. No cords, erythema, or tenderness NEUROLOGICAL: Cranial nerves II through XII grossly intact. Normal speech, normal gait SKIN: Warm, Dry, normal turgor, no rashes or lesions noted. : Joshi catheter inserted with no drainage. No testicular tenderness. No erythema. - Medical Decision Making 06/09/17 17:38 Vital Signs Temp Pulse Resp BP Pulse Ox 98.7 F 98 H 20 158/94 98 06/09/17 16:49 06/09/17 16:49 06/09/17 16:49 06/09/17 16:49 06/09/17 16:49 Patient reports that this feels exactly like his prior urinary tract infections. He has a known history of multidrug resistance. If UA is positive, the patient will need to be admitted for IV antibiotics and for evaluation by infectious diseases and urology. 06/09/17 19:25 CBC, BMP 06/09/17 18:20 06/09/17 18:20 CMP Sodium 138 mmol/L (136-145) 06/09/17 18:20 Potassium 4.3 mmol/L (3.5-5.1) 06/09/17 18:20 Chloride 105 mmol/L (98-107) 06/09/17 18:20 Carbon Dioxide 28 mmol/L (22-28) 06/09/17 18:20 Anion Gap 5 (8-16) L 06/09/17 18:20 BUN 14 mg/dl (7-18) 06/09/17 18:20 Creatinine 0.8 mg/dl (0.6-1.3) 06/09/17 18:20 Creat Clearance w eGFR > 60 (>60) 06/09/17 18:20 Random Glucose 88 mg/dl (74-106) D 06/09/17 18:20 Calcium 9.4 mg/dl (8.4-10.2) 06/09/17 18:20 Total Bilirubin 0.4 mg/dl (0.2-1.0) 06/09/17 18:20 AST 27 U/L (10-42) D 06/09/17 18:20 ALT 19 U/L (10-40) 06/09/17 18:20 Alkaline Phosphatase 141 U/L (32-92) H D 06/09/17 18:20 Total Protein 6.7 g/dl (6.4-8.3) 06/09/17 18:20 Albumin 3.8 g/dl (3.5-5.0) 06/09/17 18:20 Urine Test Results Urine Color Yellow 06/09/17 18:20 Urine Appearance Hazy 06/09/17 18:20 Urine pH 5.5 (4.5-8) 06/09/17 18:20 Ur Specific [place] >= 1.030 (1.005-1.025) H 06/09/17 18:20 Urine Protein 2+ (NEGATIVE) H 06/09/17 18:20 Urine Glucose (UA) Negative (NEGATIVE) 06/09/17 18:20 Urine Ketones Trace (NEGATIVE) 06/09/17 18:20 Urine Blood 3+ (NEGATIVE) 06/09/17 18:20 Urine Nitrite Negative (NEGATIVE) 06/09/17 18:20 Urine Bilirubin Negative (NEGATIVE) 06/09/17 18:20 Ur Leukocyte Esterase Trace (NEGATIVE) H 06/09/17 18:[address] Laureano. Requests IV meropenem and will see patient as a [facility] bpm consultant. Will admit patient for MDR UTI
[2017-06-09 18:27] LABS: PH,URINE 5.5 (4.5-8); URINE BILIRUBIN Negative (NEGATIVE); URINE BLOOD 3+ (NEGATIVE); URINE GLUCOSE (UA) Negative (NEGATIVE); URINE KETONE Trace (NEGATIVE); URINE NITRITE Negative (NEGATIVE); URINE UROBILINOGEN 0.2 (0.2-1.0)
[2017-06-09 18:28] LABS: URINE APPEARANCE HAZY; URINE COLOR YELLOW; URINE LEUK ESTERASE TRACE (NEGATIVE); URINE PROTEIN 2+ (NEGATIVE)
[2017-06-09 18:32] LABS: BASOPHIL 0.8 % (0-2.0); EOSINOPHIL 3.1 % (0-4.5); MCH 29.3 pg (25.7-33.7); MCHC 33.2 g/dl (32.0-35.9); MEAN CELL VOLUME 88.2 fl (80-96); MEAN PLT VOLUME 7.4 fl (7.5-11.1); NEUTROPHILS 64.2 % (42.8-82.8); PLATELET COUNT 494 K/MM3 (134-434)
[2017-06-09 18:45] LABS: ALBUMIN 3.8 g/dl (3.5-5.0); ALK PHOS 141 U/L (32-92); ANION GAP 5 (8-16); BILIRUBIN,TOTAL 0.4 mg/dl (0.2-1.0); CALCIUM 9.4 mg/dl (8.4-10.2); CO2 28 mmol/L (22-28); CREATININE 0.8 mg/dl (0.6-1.3); GLUCOSE,RANDOM 88 mg/dl (74-106); SGOT/AST 27 U/L (10-42); SGPT/ALT 19 U/L (10-40); TOT PROT 6.7 g/dl (6.4-8.3)
[2017-06-09] MEDS ORDERED: MEROPENEM 1,000 MG in DEXTROSE 5%-WATER - 100 ML IVPB ONE (19:23)
--- NOTE | 2017-06-09 19:33 | PDOC ---
*Physical Exam - Vital Signs Last Vital Signs Temp Pulse Resp BP Pulse Ox 98.7 F 98 H 20 158/94 98 06/09/17 16:49 06/09/17 16:49 06/09/17 16:49 06/09/17 16:49 06/09/17 16:49 ED Treatment Course - LABORATORY CBC & Chemistry Diagram: 06/09/17 18:20 06/09/17 18:20 - ADDITIONAL ORDERS Additional order review: Laboratory Results 06/09/17 06/09/17 18:20 18:20 Sodium 138 Potassium 4.3 Chloride 105 Carbon Dioxide 28 Anion Gap 5 L BUN 14 Creatinine 0.8 Creat Clearance w eGFR > 60 Random Glucose 88 D Calcium 9.4 Total Bilirubin 0.4 AST 27 D ALT 19 Alkaline Phosphatase 141 H D Total Protein 6.7 Albumin 3.8 Urine Color Yellow Urine Appearance Hazy Urine pH 5.5 Ur Specific [place] >= 1.030 H Urine Protein 2+ H Urine Glucose (UA) Negative Urine Ketones Trace Urine Blood 3+ Urine Nitrite Negative Urine Bilirubin Negative Urine Urobilinogen 0.2 Ur Leukocyte Esterase Trace H 06/09/17 18:20 RBC 4.45 MCV 88.2 MCHC 33.2 RDW 12.0 MPV 7.4 L Neutrophils % 64.2 Lymphocytes % 21.1 Monocytes % 10.8 H Eosinophils % 3.1 Basophils % 0.8 *DC/Admit/Observation/Transfer Diagnosis at time of Disposition: Urinary tract infection Qualifiers: Urinary tract infection type: site unspecified Hematuria presence: without hematuria Qualified Code(s): N39.0 - Urinary tract infection, site not specified - Discharge Dispostion Condition at time of disposition: Stable Admit: Yes
[2017-06-09] MEDS ORDERED: SODIUM CHLORIDE 1,000 ML IV STA (19:36)
[2017-06-09 20:56] LABS: URINE BACTERIA FEW /hpf (NEGATIVE)
[2017-06-09] MEDS ORDERED: VANCOMYCIN 1,250 MG in DEXTROSE 5%-WATER - 250 ML IVPB ONE (21:40)
[2017-06-09] MEDS ORDERED: VANCOMYCIN 500 MG VIAL (RESTRICTED TO ID ONLY) ONE (21:43)
[2017-06-09] MEDS ORDERED: VANCOMYCIN 1,000 MG VIAL (RESTRICTED TO ID ONLY) ONE (21:43)
[2017-06-09] MEDS ORDERED: POLYETHYLENE GLYCOL 3350 119 GM BTL PO PRN (23:52)
[2017-06-09] MEDS ORDERED: ACETAMINOPHEN 325 MG TABLET (FP) PO PRN (23:52)
--- NOTE | 2017-06-10 01:00 | HP ---
CHIEF COMPLAINT: pus around jaime catheter PCP: Vikram Hobbs HISTORY OF PRESENT ILLNESS: This is a 56 year old male with a past medical history of elevated PSA and enlarged prostate, never worked up, HTN, non sustained VT, anemia secondary to GI bleed, degenerative spinal disease presented to the ED with pus coming from around his jaime cathter. Pt was recently hospitalized here for similar complaint. He was sent home on with recommendation to f/u with urology, whom he has an appointment for on Monday. His lower abdominal pain has progressively returned since discharge. He reports that the pus coming from around his catheter at this time is whitish. ER course was notable for: (1) WBC 10.0 Recent Travel: pt denies PAST MEDICAL HISTORY: Urinary retention, elevated PSA, enlarged prostate Anemia due to GI bleed 2014 Nonsustained VT (as per ED note, but pt is unsure if he ever had it) HTN degenerative spinal disease PAST SURGICAL HISTORY: L4-L5 fusion cyst removed from groin Social History: Smoking: quit 8.5y ago, previous 45 pack year history Alcohol: pt denies Drugs: pt denies Family History: Father age 80, sudden cardiac , prostate CA age 68, radical prostatectomy, OA, DM, Alzheimers Mother age 84, sepsis, CVA, HTN, gallstones sister alive, back problems, HTN Brother alive, DM, HTN Brother alive, renal colic and renal issues Allergies Penicillins Allergy (Intermediate, Verified 05/28/17 12:58) Hives cat pelt standardized allergenic ex [Cat Pelt Std Extract] Allergy (Verified 12:58) HOME MEDICATIONS: 3 Medication Instructions Recorded Acetaminophen [Tylenol Extra 1,000 mg PO Q4H PRN 05/28/17 Strength] Amlodipine Besylate [Norvasc -] 10 mg PO DAILY 05/28/17 Ciprofloxacin HCl [Cipro] 500 mg PO BID 05/28/17 Ibuprofen [Advil -] 400 mg PO QID PRN 05/28/17 Loratadine [Claritin] 10 mg PO HS 05/28/17 Metoprolol Tartrate [Lopressor] 50 mg PO BID 05/28/17 Ranitidine [Zantac -] 150 mg PO BID 05/28/17 Tamsulosin HCl [Flomax] 0.4 mg PO HS 07/16/17 REVIEW OF SYSTEMS CONSTITUTIONAL: Absent: fever, chills, diaphoresis, generalized weakness, malaise, loss of appetite, weight change HEENT: Absent: rhinorrhea, nasal congestion, throat pain, throat swelling, difficulty swallowing, mouth swelling, ear pain, eye pain, visual changes CARDIOVASCULAR: Absent: chest pain, syncope, palpitations, irregular heart rate, lightheadedness , peripheral edema RESPIRATORY: Absent: cough, shortness of breath, dyspnea with exertion, orthopnea, wheezing, stridor, hemoptysis GASTROINTESTINAL: Present: abdominal pain Absent: abdominal distension, nausea, vomiting, diarrhea, constipation, melena, hematochezia GENITOURINARY: Present: dysuria, burning sensation in penis Absent: hematuria, flank pain, genital pain MUSCULOSKELETAL: Present: back pain Absent: myalgia, arthralgia, joint swelling, neck pain SKIN: Absent: rash, itching, pallor HEMATOLOGIC/IMMUNOLOGIC: Absent: easy bleeding, easy bruising, lymphadenopathy, frequent infections ENDOCRINE: Absent: unexplained weight gain, unexplained weight loss, heat intolerance, cold intolerance NEUROLOGIC: Absent: headache, focal weakness or paresthesias, dizziness, unsteady gait, seizure, mental status changes, bladder or bowel incontinence PSYCHIATRIC: Absent: anxiety, depression, suicidal or homicidal ideation, hallucinations. PHYSICAL EXAMINATION Vital Signs - 24 hr 3 06/09/17 06/09/17 16:49 20:00 Temperature 98.7 F 98.1 F Pulse Rate 98 H Pulse Rate [ 76 Left Radial] Respiratory 20 18 Rate Blood Pressure 158/94 Blood Pressure 140/78 [Left Arm] O2 Sat by Pulse 98 99 Oximetry (%) GENERAL: Awake, alert, and fully oriented, in no acute distress. HEAD: Normal with no signs of trauma. EYES: Pupils equal, round and reactive to light, extraocular movements intact, sclera anicteric, conjunctiva clear. No lid lag. EARS, NOSE, THROAT: Ears normal, nares patent, oropharynx clear without exudates. Moist mucous membranes. NECK: Normal range of motion, supple without lymphadenopathy, JVD, or masses. LUNGS: Breath sounds equal, clear to auscultation bilaterally. No wheezes, and no crackles. No accessory muscle use. HEART: Regular rate and rhythm, normal S1 and S2 without murmur, rub or gallop. ABDOMEN: Soft, non tender, not distended, normoactive bowel sounds, no guarding , no rebound, no masses. No hepatomegaly or splenomegaly. GENITOURINARY: urine in jaime clear. No active DC from penis at this time MUSCULOSKELETAL: Normal range of motion at all joints. No bony deformities or tenderness. No CVA tenderness. UPPER EXTREMITIES: 2+ pulses, warm, well-perfused. No cyanosis. No clubbing. No peripheral edema. LOWER EXTREMITIES: 2+ pulses, warm, well-perfused. No calf tenderness. No peripheral edema. NEUROLOGICAL: Cranial nerves II-XII intact. Normal speech. Normal gait. PSYCHIATRIC: Cooperative. Good eye contact. Appropriate mood and affect. SKIN: Warm, dry, normal turgor, no rashes or lesions noted, normal capillary refill. Laboratory Results - last 24 hr 3 06/09/17 06/09/17 06/09/17 18:20 18:20 18:20 WBC 10.0 RBC 4.45 Hgb 13.0 Hct 39.2 MCV 88.2 MCH 29.3 MCHC 33.2 RDW 12.0 Plt Count 494 H MPV 7.4 L Neutrophils % 64.2 Lymphocytes % 21.1 Monocytes % 10.8 H Eosinophils % 3.1 Basophils % 0.8 Sodium 138 Potassium 4.3 Chloride 105 Carbon Dioxide 28 Anion Gap 5 L BUN 14 Creatinine 0.8 Creat Clearance w eGFR > 60 Random Glucose 88 D Lactic Acid 1.0 Calcium 9.4 Total Bilirubin 0.4 AST 27 D ALT 19 Alkaline Phosphatase 141 H D Total Protein 6.7 Albumin 3.8 Urine Color Yellow Urine Appearance Hazy Urine pH 5.5 Ur Specific [place] >= 1.030 H Urine Protein 2+ H Urine Glucose (UA) Negative Urine Ketones Trace Urine Blood 3+ Urine Nitrite Negative Urine Bilirubin Negative Urine Urobilinogen 0.2 Ur Leukocyte Esterase Trace H Urine RBC 10-15 Urine WBC 2-5 Urine Bacteria Few ASSESSMENT/PLAN: 56yM with PMH enlarged prostate with elevated PSA, Anemia secondary to GI bleed , HTN, ?nonsustained VT, degenerative spinal disease presented to the ED with pus leakage around jaime catheter. urethritis - previous culture grew out staph epidermidis and staph hominis, MDR, sensitive to daptomycin, linezolid and vanco only - d/w Dr. Laureano who recommended one dose meropenem (already given) and one dose vancomycin and he will see pt tomorrow. - urology consult Enlarge prostate with urinary retention - Cont home tamsulosin HTN - cont home meds. anemia - Hgb 13.0. cont to monitor back pain, DJD - flexeril given on last visit was effective, will restart same. FEN - tolerating po fluids - BMP in am - Low sodium diet Dispo: Pt currently requires inpatient management of his emergent conditions. Visit type - Emergency Visit Emergency Visit: Yes ED Registration Date: 06/09/17 Care time: The patient presented to the Emergency Department on the above date and was hospitalized for further evaluation of their emergent condition. - New Patient This patient is new to me today: Yes Date on this admission: 06/10/17 - Critical Care Critical Care patient: No
[2017-06-10] MEDS ORDERED: RANITIDINE HCL 150 MG TABLET (FP) PO ONE (01:01)
[2017-06-10] MEDS ORDERED: LORATADINE 10 MG TABLET PO ONE (01:01)
[2017-06-10] MEDS ORDERED: METOPROLOL TARTRATE 50 MG TABLET (FP) PO ONE (01:01)
[2017-06-10] MEDS ORDERED: TAMSULOSIN HCL 0.4 MG CAP.ER.24H (FP) PO ONE (01:11)
[2017-06-10] MEDS: ACETAMINOPHEN 325 MG TABLET (FP) PO PRN (01:25)
[2017-06-10 01:58] VITALS: BMI 26.9
[2017-06-10 08:01] LABS: BASOPHIL 0.3 % (0-2.0)
[2017-06-10 08:14] LABS: EOSINOPHIL 3.7 % (0-4.5); MCH 29.4 pg (25.7-33.7); MCHC 32.9 g/dl (32.0-35.9); MEAN CELL VOLUME 89.2 fl (80-96); MEAN PLT VOLUME 7.3 fl (7.5-11.1); NEUTROPHILS 63.1 % (42.8-82.8); PLATELET COUNT 440 K/MM3 (134-434); RDW 11.3 % (11.9-15.9); WHITE BLOOD COUNT 8.1 K/mm3 (4.0-10.8)
[2017-06-10 08:25] LABS: ANION GAP 6 (8-16); CALCIUM 9.1 mg/dl (8.4-10.2); CO2 30 mmol/L (22-28); CREATININE 0.6 mg/dl (0.6-1.3); GLUCOSE,RANDOM 112 mg/dl (74-106); MAGNESIUM 1.9 mg/dL (1.8-2.4); PHOSPHOROUS 2.9 mg/dl (2.5-4.6)
--- NOTE | 2017-06-10 08:47 | PN ---
Physical Exam: SUBJECTIVE: Patient seen and examined. Has subjective fever and suprapubic discomfort. Complains of constipation; no BM x 2 days. Complains of chronic back pain. OBJECTIVE: Vital Signs Period Temp Pulse Resp BP Sys/Cordero Pulse Ox Last 24 Hr 97.8 F-98.1 F 89-101 17-18 127-153/55-77 99 GENERAL: The patient is awake, alert, and fully oriented, in no acute distress. HEAD: Normal with no signs of trauma. EYES: PERRL, extraocular movements intact, sclera anicteric, conjunctiva clear. No ptosis. ENT: Ears normal, nares patent, oropharynx clear without exudates, moist mucous membranes. NECK: Trachea midline, full range of motion, supple. LUNGS: Breath sounds equal, clear to auscultation bilaterally, no wheezes, no crackles, no accessory muscle use. HEART: Regular rate and rhythm, S1, S2 without murmur, rub or gallop. ABDOMEN: Soft, nontender, nondistended, normoactive bowel sounds, no guarding, no rebound, no hepatosplenomegaly, no masses. EXTREMITIES: 2+ pulses, warm, well-perfused, no edema. NEUROLOGICAL: Cranial nerves II through XII grossly intact. Normal speech, gait not observed. PSYCH: Normal mood, normal affect. SKIN: Warm, dry, normal turgor, no rashes or lesions noted. : Jaime catheter in place, very scant light brown drainage from meatus. Laboratory Results - last 24 hr 06/10/17 06/10/17 07:38 07:38 WBC 8.1 RBC 4.37 Hgb 12.8 Hct 39.0 MCV 89.2 MCH 29.4 MCHC 32.9 RDW 11.3 L Plt Count 440 H MPV 7.3 L Neutrophils % 63.1 Lymphocytes % 22.3 Monocytes % 10.6 H Eosinophils % 3.7 Basophils % 0.3 Sodium 141 Potassium 4.1 Chloride 105 Carbon Dioxide 30 H Anion Gap 6 L BUN 9 D Creatinine 0.6 D Random Glucose 112 H D Calcium 9.1 Phosphorus 2.9 Magnesium 1.9 Active Medications Generic Name Dose Route Start Last Admin Trade Name Freq PRN Reason Stop Dose Admin Acetaminophen 650 mg 06/10/17 01:11 06/10/17 01:25 Tylenol - PO 650 mg Q6H PRN Administration FEVER OR PAIN Amlodipine Besylate 10 mg 06/10/17 10:00 Norvasc - PO DAILY ORIN Cyclobenzaprine HCl 5 mg 06/10/17 01:01 Flexeril - PO TID PRN MUSCLE SPASMS Sodium Chloride 1,000 mls @ 75 mls/hr 06/09/17 23:45 Normal Saline - IV ASDIR ORIN Loratadine 10 mg 06/10/17 22:00 Claritin - PO HS [facility] Metoprolol Tartrate 50 mg 06/10/17 10:00 Lopressor - PO BID ORIN Polyethylene Glycol 17 gm 06/09/17 23:52 Miralax (For Daily Use) - PO DAILY PRN CONSTIPATION Ranitidine HCl 150 mg 06/10/17 10:00 Zantac - PO BID ORIN Tamsulosin HCl 0.4 mg 06/10/17 22:00 Flomax - PO HS [facility] ASSESSMENT/PLAN: 56 year old male with obstructive uropathy and indwelling jaime catheter, also with history of anemia secondary to GI bleed, HTN, ? nonsustained VT, degenerative spinal disease presented to the ED with pus leakage around jaime catheter. Previously admitted for same 05/28-05/30 for same; discharged on Cipro/Flomax and has urology appointment on Monday. 1. Urethritis -Previous culture grew out staph epidermidis and staph hominis -Seen by ID and started on Ertapenem; also recommend transrectal u/s to r/o prostatic abscess but probe is not available per ultrasound department, will obtain CT pelvis -Blood and urine cultures pending -Continue Flomax -Urology consultation requested - Dr. Mario will see the patient tomorrow 2. HTN -Currently at goal -Continue home Metoprolol, Norvasc 3. Chronic back pain -Continue home Flexeril prn 4. Constipation -Miralax, colace 4. F/E/N -PO intake adequate -Low sodium diet 5. Ppx -Low risk -Ambulation DISPO: Requires inpatient services
--- NOTE | 2017-06-10 09:16 | CONSULT ---
Consult Consult Specialty:: infectious diseases Reason for Consultation:: uretheral draiange - History of Present Illness Chief Complaint: burning and draiange from the urethera History of Present Illness: 56 yo M with recent admission for draiange around the urethera with fevers and who was discharged and has been on cipro comes back with drainage around the foleys catheter which is slightly yellowish. patient denies fever but has burning and started noticing increased discharge from the urethra around the foleys catheter patient denies any fever - History Source History Provided By: Patient Limitations to Obtaining History: No Limitations - Past Medical History Renal/: Yes: BPH - Alcohol/Substance Use Hx Alcohol Use: No - Smoking History Smoking history: Former smoker Have you smoked in the past 12 months: No Aproximately how many cigarettes per day: 0 If you are a former smoker, when did you quit?: 1998 Home Medications - Allergies Allergies/Adverse Reactions: Allergies Allergy/AdvReac Type Severity Reaction Status Date / Time Penicillins Allergy Intermediate Hives Verified 06/09/17 16:49 cat pelt standardized Allergy Verified 06/09/17 16:49 allergenic ex [Cat Pelt Std Extract] - Home Medications Home Medications: Ambulatory Orders Amlodipine Besylate [Norvasc -] 10 mg PO DAILY 05/28/17 Ciprofloxacin HCl [Cipro] 500 mg PO BID 05/28/17 Ibuprofen [Advil -] 400 mg PO QID PRN 05/28/17 Loratadine [Claritin] 10 mg PO HS 05/28/17 Metoprolol Tartrate [Lopressor] 50 mg PO BID 05/28/17 Ranitidine [Zantac -] 150 mg PO BID 05/28/17 Tamsulosin HCl [Flomax] 0.4 mg PO HS 05/28/17 Acetaminophen [Tylenol .Regular Strength -] 650 mg PO Q4H PRN #0 tablet Polyethylene Glycol 3350 [Miralax 119 gm Btl -] 17 gm PO DAILY PRN #1 bottle Family Disease History - Family Disease History Family Disease History: Other: Father (prostate cancer) Review of Systems - Review of Systems Constitutional: reports: No Symptoms Eyes: reports: No Symptoms HENT: reports: No Symptoms Neck: reports: No Symptoms Cardiovascular: reports: No Symptoms Respiratory: reports: No Symptoms Gastrointestinal: reports: No Symptoms Genitourinary: reports: Discharge, Dysuria Musculoskeletal: reports: No Symptoms Integumentary: reports: No Symptoms Neurological: reports: No Symptoms Endocrine: reports: No Symptoms Hematology/Lymphatic: reports: No Symptoms Psychiatric: reports: No Symptoms Physical Exam Vital Signs: Vital Signs Temperature 98.1 F 06/10/17 03:50 Pulse Rate 89 06/10/17 03:50 Respiratory Rate 17 06/10/17 03:50 Blood Pressure 127/55 06/10/17 03:50 O2 Sat by Pulse Oximetry (%) 99 06/10/17 00:40 Constitutional: Yes: Well Nourished, No Distress, Calm Eyes: Yes: Conjunctiva Clear Cardiovascular: Yes: Regular Rate and Rhythm Respiratory: Yes: Regular, CTA Bilaterally Gastrointestinal: Yes: Normal Bowel Sounds, Soft Renal/: Yes: Jaime Present, Other (discharge noted around the foleys catheter slightly yellowish in nature) Musculoskeletal: Yes: WNL Extremities: Yes: WNL Neurological: Yes: Alert, Oriented Psychiatric: Yes: Alert, Oriented Labs: CBC, BMP 06/10/17 07:38 06/10/17 07:38 Assessment/Plan 58yM with PMH enlarged prostate with elevated PSA, Anemia secondary to GI bleed , HTN, ?nonsustained VT, degenerative spinal disease presented to the ED with pus leakage around jaime catheter. Urethritis r/o prostatic abscess urinary retention HTN bph plan trans rectal ultrasound await for cx reports will start on ertapenam if all reports normal we will be able to switch him back on cipro
[2017-06-10] MEDS: RANITIDINE HCL 150 MG TABLET (FP) PO SCH ×2 (10:00→21:13)
[2017-06-10] MEDS ORDERED: amLODIPine BESYLATE 10 MG TABLET (FP) PO SCH (10:00)
[2017-06-10] MEDS: ERTAPENEM SODIUM 1 GM in SODIUM CHLORIDE 50 ML IVPB SCH (10:00)
[2017-06-10] MEDS ORDERED: METOPROLOL TARTRATE 50 MG TABLET (FP) PO SCH (10:00)
[2017-06-10] MEDS: METOPROLOL TARTRATE 50 MG TABLET (FP) PO SCH ×2 (10:10→21:13)
[2017-06-10] MEDS: POLYETHYLENE GLYCOL 3350 119 GM BTL PO SCH (10:11)
[2017-06-10] MEDS: amLODIPine BESYLATE 10 MG TABLET (FP) PO SCH (10:11)
[2017-06-10] MEDS ORDERED: PT OWN MED DRAWER 7, Y5N ONE (11:00)
[2017-06-10] MEDS: CYCLOBENZAPRINE HCL 10 MG TABLET (FP) PO PRN ×2 (11:10→21:16)
[2017-06-10] MEDS: LORATADINE 10 MG TABLET PO SCH (21:13)
[2017-06-10] MEDS: TAMSULOSIN HCL 0.4 MG CAP.ER.24H (FP) PO SCH (21:13)
[2017-06-10] MEDS: SODIUM CHLORIDE 1,000 ML IV SCH (23:45)
[2017-06-11] MEDS: ACETAMINOPHEN 325 MG TABLET (FP) PO PRN ×2 (00:25→10:32)
[2017-06-11 07:58] LABS: BASOPHIL 0.7 % (0-2.0); MCH 29.5 pg (25.7-33.7); MCHC 33.7 g/dl (32.0-35.9); MEAN CELL VOLUME 87.6 fl (80-96); MEAN PLT VOLUME 7.3 fl (7.5-11.1); NEUTROPHILS 57.3 % (42.8-82.8); PLATELET COUNT 418 K/MM3 (134-434); RDW 11.6 % (11.9-15.9); WHITE BLOOD COUNT 8.2 K/mm3 (4.0-10.8)
[2017-06-11 08:04] LABS: ALBUMIN 3.3 g/dl (3.5-5.0); ALK PHOS 144 U/L (32-92); ANION GAP 8 (8-16); BILIRUBIN,TOTAL 0.6 mg/dl (0.2-1.0); CALCIUM 9.1 mg/dl (8.4-10.2); CO2 29 mmol/L (22-28); CREATININE 0.7 mg/dl (0.6-1.3); GLUCOSE,RANDOM 106 mg/dl (74-106); SGOT/AST 18 U/L (10-42); SGPT/ALT 18 U/L (10-40); TOT PROT 5.9 g/dl (6.4-8.3)
[2017-06-11] MEDS ORDERED: PT OWN MED DRAWER 7, Y5N ONE (09:06)
[2017-06-11] MEDS: POLYETHYLENE GLYCOL 3350 119 GM BTL PO SCH (10:03)
[2017-06-11] MEDS: amLODIPine BESYLATE 10 MG TABLET (FP) PO SCH (10:03)
[2017-06-11] MEDS: RANITIDINE HCL 150 MG TABLET (FP) PO SCH ×2 (10:03→21:45)
[2017-06-11] MEDS: METOPROLOL TARTRATE 50 MG TABLET (FP) PO SCH ×2 (10:03→21:45)
--- NOTE | 2017-06-11 10:08 | PN ---
Progress Note, Physician History of Present Illness: patient clinically stable says though he feels pressure in the bladder no fevers - Current Medication List Current Medications: Active Medications Acetaminophen (Tylenol -) 650 mg PO Q6H PRN PRN Reason: FEVER OR PAIN Last Admin: 06/11/17 00:25 Dose: 650 mg Amlodipine Besylate (Norvasc -) 10 mg PO DAILY [facility] Last Admin: 06/11/17 10:03 Dose: 10 mg Cyclobenzaprine HCl (Flexeril -) 5 mg PO TID PRN PRN Reason: MUSCLE SPASMS Last Admin: 06/10/17 21:16 Dose: 5 mg Sodium Chloride (Normal Saline -) 1,000 mls @ 75 mls/hr IV ASDIR [facility] Last Admin: 06/10/17 23:45 Dose: 75 mls/hr Ertapenem 1 gm/ Sodium (Chloride) 50 mls @ 50 mls/hr IVPB DAILY [facility] PRN Reason: Protocol Last Admin: 06/10/17 10:00 Dose: 50 mls/hr Loratadine (Claritin -) 10 mg PO [facility] Last Admin: 06/10/17 21:13 Dose: 10 mg Metoprolol Tartrate (Lopressor -) 50 mg PO BID [facility] Last Admin: 06/11/17 10:03 Dose: 50 mg Polyethylene Glycol (Miralax (For Daily Use) -) 17 gm PO DAILY [facility] Last Admin: 06/11/17 10:03 Dose: 17 gm Ranitidine HCl (Zantac -) 150 mg PO BID [facility] Last Admin: 06/11/17 10:03 Dose: 150 mg Tamsulosin HCl (Flomax -) 0.4 mg PO [facility] Last Admin: 06/10/17 21:13 Dose: 0.4 mg - Objective Vital Signs: Vital Signs Temperature 98.4 F 06/11/17 09:23 Pulse Rate 69 06/11/17 09:23 Respiratory Rate 18 06/11/17 09:23 Blood Pressure 121/97 06/11/17 09:23 O2 Sat by Pulse Oximetry (%) 95 06/11/17 08:29 Constitutional: Yes: No Distress, Calm Cardiovascular: Yes: Regular Rate and Rhythm Respiratory: Yes: Regular, CTA Bilaterally Gastrointestinal: Yes: Normal Bowel Sounds, Soft Musculoskeletal: Yes: WNL Extremities: Yes: WNL Neurological: Yes: Alert, Oriented Psychiatric: Yes: Alert, Oriented Labs: CBC, BMP 06/11/17 06:00 06/11/17 06:00 - ....Imaging Cat Scan: Report Reviewed, Image Reviewed Assessment/Plan 58yM with PMH enlarged prostate with elevated PSA, Anemia secondary to GI bleed , HTN, ?nonsustained VT, degenerative spinal disease presented to the ED with pus leakage around jaime catheter. Urethritis prostatitis cystitis urinary retention HTN bph after looking at the ct scan patient probably has prostatitis and cystitis plan continue current abx urology to see the patient further plan after urology sees the patient rest continue current mgmt await for urine cx to be back
--- NOTE | 2017-06-11 10:20 | PN ---
Physical Exam: SUBJECTIVE: Patient seen and examined. Complaining of penile "soreness" and continued discharge, as well as suprapubic discomfort. No fevers/chills. OBJECTIVE: Vital Signs Period Temp Pulse Resp BP Sys/Cordero Pulse Ox Last 24 Hr 97 F-98.5 F 69-92 18-19 117-121/49-97 95-99 GENERAL: The patient is awake, alert, and fully oriented, in no acute distress. HEAD: Normal with no signs of trauma. EYES: PERRL, extraocular movements intact, sclera anicteric, conjunctiva clear. No ptosis. ENT: Ears normal, nares patent, oropharynx clear without exudates, moist mucous membranes. NECK: Trachea midline, full range of motion, supple. LUNGS: Breath sounds equal, clear to auscultation bilaterally, no wheezes, no crackles, no accessory muscle use. HEART: Regular rate and rhythm, S1, S2 without murmur, rub or gallop. ABDOMEN: Soft, nontender, nondistended, normoactive bowel sounds, no guarding, no rebound, no hepatosplenomegaly, no masses. EXTREMITIES: 2+ pulses, warm, well-perfused, no edema. NEUROLOGICAL: Cranial nerves II through XII grossly intact. Normal speech, gait not observed. PSYCH: Normal mood, normal affect. SKIN: Warm, dry, normal turgor, no rashes or lesions noted : Mild erythema at meatus, scant yellow-brown discharge. Catheter draining well. Laboratory Results - last 24 hr 06/11/17 06/11/17 06:00 06:00 WBC 8.2 RBC 4.33 Hgb 12.8 Hct 38.0 MCV 87.6 MCH 29.5 MCHC 33.7 RDW 11.6 L Plt Count 418 MPV 7.3 L Neutrophils % 57.3 Lymphocytes % 28.1 D Monocytes % 9.9 Eosinophils % 4.0 Basophils % 0.7 Sodium 140 Potassium 4.2 Chloride 103 Carbon Dioxide 29 H Anion Gap 8 BUN 10 Creatinine 0.7 Creat Clearance w eGFR > 60 Random Glucose 106 Calcium 9.1 Total Bilirubin 0.6 D AST 18 D ALT 18 Alkaline Phosphatase 144 H Total Protein 5.9 L Albumin 3.3 L Active Medications Generic Name Dose Route Start Last Admin Trade Name Freq PRN Reason Stop Dose Admin Acetaminophen 650 mg 06/10/17 01:11 06/11/17 00:25 Tylenol - PO 650 mg Q6H PRN Administration FEVER OR PAIN Amlodipine Besylate 10 mg 06/10/17 10:00 06/11/17 10:03 Norvasc - PO 10 mg DAILY ORIN Administration Cyclobenzaprine HCl 5 mg 06/10/17 01:01 06/10/17 21:16 Flexeril - PO 5 mg TID PRN Administration MUSCLE SPASMS Sodium Chloride 1,000 mls @ 75 mls/hr 06/09/17 23:45 06/10/17 23:45 Normal Saline - IV 75 mls/hr ASDIR ORIN Administration Ertapenem 1 gm/ Sodium 50 mls @ 50 mls/hr 06/10/17 10:00 06/10/17 10:00 Chloride IVPB 50 mls/hr DAILY ORIN Administration Protocol Loratadine 10 mg 06/10/17 22:00 06/10/17 21:13 Claritin - PO 10 mg HS ORIN Administration Metoprolol Tartrate 50 mg 06/10/17 10:00 06/11/17 10:03 Lopressor - PO 50 mg BID ORIN Administration Polyethylene Glycol 17 gm 06/10/17 10:00 06/11/17 10:03 Miralax (For Daily Use) - PO 17 gm DAILY ORIN Administration Ranitidine HCl 150 mg 06/10/17 10:00 06/11/17 10:03 Zantac - PO 150 mg BID ORIN Administration Tamsulosin HCl 0.4 mg 06/10/17 22:00 06/10/17 21:13 Flomax - PO 0.4 mg HS ORIN Administration CT pelvis 06/10: Prominent diffuse urinary bladder wall thickening suggestive of cystitis. Perivesical soft tissue edema is seen. Moderate diffuse prostatic enlargement without obvious abscess formation. Seminal vesicles are prominent bilaterally suggestie of vesiculitis. Within the right seminal vessicle several non-enhancing low attenuation foci are noted which may represent non-onfected fluid, abscesses, or cysts. ASSESSMENT/PLAN: 56 year old male with obstructive uropathy and indwelling jaime catheter, also with history of anemia secondary to GI bleed, HTN, ? nonsustained VT, degenerative spinal disease presented to the ED with pus leakage around jaime catheter. Previously admitted for same 05/28-05/30 for same; discharged on Cipro/Flomax and has urology appointment on Monday. 1. Urethritis -Previous culture grew out staph epidermidis and staph hominis -Seen by ID and started on Ertapenem -CT: no prostatic abscess -Blood and urine cultures ngtd -Continue Flomax -Urology consultation expected today 2. HTN -Currently at goal -Continue home Metoprolol, Norvasc 3. Chronic back pain -Continue home Flexeril prn 4. Constipation -Miralax, colace 4. F/E/N -PO intake adequate -Low sodium diet 5. Ppx -Low risk -Ambulation DISPO: Requires inpatient services
[2017-06-11] MEDS: CYCLOBENZAPRINE HCL 10 MG TABLET (FP) PO PRN ×2 (10:32→21:44)
[2017-06-11] MEDS: ERTAPENEM SODIUM 1 GM in SODIUM CHLORIDE 50 ML IVPB SCH (10:36)
--- NOTE | 2017-06-11 17:49 | CON.GU ---
Consult Consult Specialty:: Referred by:: Florinda Reason for Consultation:: purulent urethral discharge - History of Present Illness Chief Complaint: pus around jaime History of Present Illness: 56 yo m w hx BPH, elevated PSA, Family Hx of Ca prostate, urinary retention w indwelling jaime cath, frequent UTIs, HTN, VT, anemia, DDD adm w pus around jaime cath and SP discomfort. Pt was adm 2 weeks ago w same dcd on cipro. cons req. - History Source History Provided By: Patient, Medical Record - Past Medical History Cardio/Vascular: Yes: HTN, Other (non sust VT) Renal/: Yes: BPH, UTI - Alcohol/Substance Use Hx Alcohol Use: No - Smoking History Smoking history: Former smoker Have you smoked in the past 12 months: No Aproximately how many cigarettes per day: 0 If you are a former smoker, when did you quit?: 1998 Home Medications - Allergies Allergies/Adverse Reactions: Allergies Allergy/AdvReac Type Severity Reaction Status Date / Time Penicillins Allergy Intermediate Hives Verified 06/09/17 16:49 cat pelt standardized Allergy Verified 06/09/17 16:49 allergenic ex [Cat Pelt Std Extract] - Home Medications Home Medications: Ambulatory Orders Amlodipine Besylate [Norvasc -] 10 mg PO DAILY 05/28/17 Ciprofloxacin HCl [Cipro] 500 mg PO BID 05/28/17 Ibuprofen [Advil -] 400 mg PO QID PRN 05/28/17 Loratadine [Claritin] 10 mg PO HS 05/28/17 Metoprolol Tartrate [Lopressor] 50 mg PO BID 05/28/17 Ranitidine [Zantac -] 150 mg PO BID 05/28/17 Tamsulosin HCl [Flomax] 0.4 mg PO HS 05/28/17 Acetaminophen [Tylenol .Regular Strength -] 650 mg PO Q4H PRN #0 tablet Polyethylene Glycol 3350 [Miralax 119 gm Btl -] 17 gm PO DAILY PRN #1 bottle Family Disease History - Family Disease History Family Disease History: Other: Father (prostate cancer) Review of Systems - Review of Systems Genitourinary: reports: Burning Physical Exam- Vital Signs: Vital Signs Temperature 98.6 F 06/11/17 14:08 Pulse Rate 77 06/11/17 14:08 Respiratory Rate 18 06/11/17 14:08 Blood Pressure 109/54 06/11/17 14:08 O2 Sat by Pulse Oximetry (%) 96 06/11/17 14:08 Gastrointestinal: Yes: WNL Renal/: Yes: Jaime Present, Urethral Discharge (resolved) Prostate Exam: Yes: Swollen Labs: CBC, BMP 06/11/17 06:00 06/11/17 06:00 Assessment/Plan Imp: catheter related UTI/urethritis, urinary retention, BPH, elevated PSA Rec: OK for disch w jaime. F/U in my office 06/12 for cystoscopy uroflow, PVR, TRUS. He will need TRUS bx after UTI resolved. Consider urolift vs CIC.
[2017-06-11] MEDS: TAMSULOSIN HCL 0.4 MG CAP.ER.24H (FP) PO SCH (21:45)
[2017-06-11] MEDS: LORATADINE 10 MG TABLET PO SCH (21:45)
[2017-06-11] MEDS: SODIUM CHLORIDE 1,000 ML IV SCH (23:50)
[2017-06-12 06:21] VITALS: BP 129/65; PULSE 84; TEMP 98.6
[2017-06-12] MEDS: CYCLOBENZAPRINE HCL 10 MG TABLET (FP) PO PRN (06:45)
[2017-06-12] MEDS ORDERED: PT OWN MED DRAWER 7, Y5N ONE (08:11)
--- NOTE | 2017-06-12 08:30 | DS ---
Physical Exam: SUBJECTIVE: Patient seen and examined, patient reports feeling well, denies any chest pain or shortness of breath. patient does report suprapubic tenderness. OBJECTIVE:This is a 56 year old male with a past medical history of elevated PSA and enlarged prostate, never worked up, HTN, non sustained VT, anemia secondary to GI bleed, degenerative spinal disease presented to the ED with pus coming from around his jaime cathter. Pt was recently hospitalized here for similar complaint. He was sent home on with recommendation to f/u with urology, whom he has an appointment for on Monday. His lower abdominal pain has progressively returned since discharge. He reports that the pus coming from around his catheter at this time is whitish. ER course was notable for: (1) WBC 10.0 Vital Signs Period Temp Pulse Resp BP Sys/Cordero Pulse Ox Last 24 Hr 98.4 F-98.8 F 69-95 17-18 109-136/54-97 94-96 PHYSICAL EXAM GENERAL: The patient is awake, alert, and fully oriented, in no acute distress. HEAD: Normal with no signs of trauma. EYES: PERRL, extraocular movements intact, sclera anicteric, conjunctiva clear. ENT: Ears normal, nares patent, oropharynx clear without exudates, moist mucous membranes. NECK: Trachea midline, full range of motion, supple. LUNGS: Breath sounds equal, clear to auscultation bilaterally, no wheezes, no crackles, no accessory muscle use. HEART: Regular rate and rhythm, S1, S2 without murmur, rub or gallop. ABDOMEN: Soft, nontender, nondistended, normoactive bowel sounds, no guarding, no rebound, no hepatosplenomegaly, no masses. MS: paraspinal tenderness noted to L4-L5, w/muscle spasm, negative SLR bilaterally EXTREMITIES: 2+ pulses, warm, well-perfused, no edema. jaime cather, clear yellow urine. NEUROLOGICAL: Cranial nerves II through XII grossly intact. Normal speech, gait not observed. PSYCH: Normal mood, normal affect. SKIN: Warm, dry, normal turgor, no rashes or lesions noted. LABS CBC WBC 10.0 K/mm3 (4.0-10.8) 06/12/17 07:00 RBC 4.31 M/mm3 (4.00-5.60) 06/12/17 07:00 Hgb 12.7 GM/dl (11.7-16.9) 06/12/17 07:00 Hct 38.2 % (35.4-49) 06/12/17 07:00 MCV 88.6 fl (80-96) 06/12/17 07:00 MCH 29.5 pg (25.7-33.7) 06/12/17 07:00 MCHC 33.3 g/dl (32.0-35.9) 06/12/17 07:00 RDW 11.4 % (11.9-15.9) L 06/12/17 07:00 Plt Count 412 K/MM3 (134-434) 06/12/17 07:00 MPV 7.4 fl (7.5-11.1) L 06/12/17 07:00 Neutrophils % 66.0 % (42.8-82.8) 06/12/17 07:00 Lymphocytes % 20.4 % (8-40) D 06/12/17 07:00 Monocytes % 10.1 % (3.8-10.2) 06/12/17 07:00 Eosinophils % 3.1 % (0-4.5) 06/12/17 07:00 Basophils % 0.4 % (0-2.0) 06/12/17 07:00 CMP Sodium 136 mmol/L (136-145) 06/12/17 07:00 Potassium 4.2 mmol/L (3.5-5.1) 06/12/17 07:00 Chloride 102 mmol/L (98-107) 06/12/17 07:00 Carbon Dioxide 26 mmol/L (22-28) 06/12/17 07:00 Anion Gap 8 (8-16) 06/12/17 07:00 BUN 11 mg/dl (7-18) 06/12/17 07:00 Creatinine 0.7 mg/dl (0.6-1.3) 06/12/17 07:00 Creat Clearance w eGFR > 60 (>60) 06/11/17 06:00 Random Glucose 112 mg/dl (74-106) H 06/12/17 07:00 Lactic Acid 1.0 mmol/L (0.4-2.0) 06/09/17 18:20 Calcium 9.3 mg/dl (8.4-10.2) 06/12/17 07:00 Phosphorus 2.9 mg/dl (2.5-4.6) 06/10/17 07:38 Magnesium 1.9 mg/dL (1.8-2.4) 06/10/17 07:38 Total Bilirubin 0.6 mg/dl (0.2-1.0) D 06/11/17 06:00 AST 18 U/L (10-42) D 06/11/17 06:00 ALT 18 U/L (10-40) 06/11/17 06:00 Alkaline Phosphatase 144 U/L (32-92) H 06/11/17 06:00 Total Protein 5.9 g/dl (6.4-8.3) L 06/11/17 06:00 Albumin 3.3 g/dl (3.5-5.0) L 06/11/17 06:00 Microbiology 06/09/17 18:20 Blood - Peripheral Venous Blood Culture - Preliminary NO GROWTH OBTAINED AFTER 48 HOURS, INCUBATION TO CONTINUE FOR 3 DAYS. 06/09/17 18:20 Blood - Peripheral Venous Blood Culture - Preliminary NO GROWTH OBTAINED AFTER 48 HOURS, INCUBATION TO CONTINUE FOR 3 DAYS. 06/09/17 18:20 Urine - Urine - Catheterized Urine Culture - Final NO GROWTH OBTAINED HOSPITAL COURSE: Patient was admitted from the emergency department for urethritis. He was evaluated by Dr Laureano, ID, and started on Ertapenem. CT of abd/pelvis, no prostatic abscess, Blood and urine cultures ngtd. Flomax was continued. Urology, Dr Mario was consulted. patient does have a hypertension, at goal, Metoprolol, and norvasc. Patient has a pmh of chronic back pain, Flexeril prn was continued. PLAN * pt has a scheduled appt with Dr Mario, today at 1045am advised to keep appointment * continue cipro daily * return precautions, reviewed, ie fever, chest pain or shortness of breath. te of Admission:06/09/17 Date of Discharge: 06/12/17 Minutes to complete discharge: 45 Discharge Summary Reason For Visit: UTI Current Active Problems UTI (urinary tract infection) (Acute) Condition: Improved - Instructions Diet, Activity, Other Instructions: continue all medications as prescribed continue taking ciprofloxacin daily resume regular low sodium diet please keep follow up appointment that you have scheduled for today at 1145am if chest pain, fever, or shortness of breath develops please return to the emergency department Referrals: Domingo Mario MD [Staff Physician] - Disposition: HOME - Home Medications Comprehensive Discharge Medication List: Ambulatory Orders Amlodipine Besylate [Norvasc -] 10 mg PO DAILY 05/28/17 Ciprofloxacin HCl [Cipro] 500 mg PO BID 05/28/17 Ibuprofen [Advil -] 400 mg PO QID PRN 05/28/17 Loratadine [Claritin] 10 mg PO HS 05/28/17 Metoprolol Tartrate [Lopressor] 50 mg PO BID 05/28/17 Ranitidine [Zantac -] 150 mg PO BID 05/28/17 Tamsulosin HCl [Flomax] 0.4 mg PO HS 05/28/17 Acetaminophen [Tylenol .Regular Strength -] 650 mg PO Q4H PRN #0 tablet Polyethylene Glycol 3350 [Miralax 119 gm Btl -] 17 gm PO DAILY PRN #1 bottle This patient is new to me today: Yes Date on this admission: 06/12/17 Emergency Visit: Yes ED Registration Date: 06/09/17 Care time: The patient presented to the Emergency Department on the above date and was hospitalized for further evaluation of their emergent condition. Critical Care patient: No - Discharge Referral Referred to [facility] Yes Physician Referral: Ruba Justice MD ([facility])
[2017-06-12 08:53] LABS: ANION GAP 8 (8-16); CALCIUM 9.3 mg/dl (8.4-10.2); CO2 26 mmol/L (22-28); CREATININE 0.7 mg/dl (0.6-1.3); GLUCOSE,RANDOM 112 mg/dl (74-106)
[2017-06-12 09:05] LABS: BASOPHIL 0.4 % (0-2.0); EOSINOPHIL 3.1 % (0-4.5); MCH 29.5 pg (25.7-33.7); MCHC 33.3 g/dl (32.0-35.9); MEAN CELL VOLUME 88.6 fl (80-96); MEAN PLT VOLUME 7.4 fl (7.5-11.1); PLATELET COUNT 412 K/MM3 (134-434); RDW 11.4 % (11.9-15.9)
[2017-06-12] MEDS: ERTAPENEM SODIUM 1 GM in SODIUM CHLORIDE 50 ML IVPB SCH (09:44)
[2017-06-12] MEDS: POLYETHYLENE GLYCOL 3350 119 GM BTL PO SCH (09:45)
[2017-06-12] MEDS: amLODIPine BESYLATE 10 MG TABLET (FP) PO SCH (09:45)
[2017-06-12] MEDS: METOPROLOL TARTRATE 50 MG TABLET (FP) PO SCH (09:45)
[2017-06-12] MEDS: RANITIDINE HCL 150 MG TABLET (FP) PO SCH (09:46)
[2017-06-12] MEDS ORDERED: KETOROLAC TROMETHAMINE 30 MG/1 ML VIAL IVPUSH ONE (10:00)
== END 2017-06-12 10:30 | disposition home or self-care (01) | DRG 466 ==
LOC: FER 16:48 → FM/S 21:42
PROVIDERS: ADMIT Internal Medicine; ATTEND Nurse Practitioner Family
DX: T83.9XXA Unspecified complication of genitourinary prosthetic device, implant and graft, initial encounter (principal); N39.0 Urinary tract infection, site not specified; N34.2 Other urethritis; N40.1 Benign prostatic hyperplasia with lower urinary tract symptoms; R33.8 Other retention of urine; I10 Essential (primary) hypertension; D64.9 Anemia, unspecified; Z87.891 Personal history of nicotine dependence; Y83.8 Other surgical procedures as the cause of abnormal reaction of the patient, or of later complication, without mention of misadventure at the time of the procedure; K59.00 Constipation, unspecified; M54.9 Dorsalgia, unspecified
CPT/HCPCS: 36415; 72193-TC; 80048; 80053; 81003; 81015; 83605; 83735; 84100; 85025; 87040; 87086; 99283-25

== ENCOUNTER 2017-08-11 08:25 | Day surgery (SDC) | payer OTHER ==
[2017-08-02 17:53] VITALS: BMI 25.9
--- NOTE | 2017-08-11 09:38 | HP ---
History & Physical Update - History History: No Change - Physical Physical: No Change - Assessment Assessment: No Change - Plan Plan: No Change
--- NOTE | 2017-08-11 09:40 | OP ---
Operative Note - Note: Operative Date: 08/11/17 Pre-Operative Diagnosis: BPH w LUTS Operation: bipolar TURP Findings: 5 cm prostatic urethra w mod-severe bilobar occlusion Post-Operative Diagnosis: Same as Pre-op Surgeon: Domingo Mario Anesthesiologist/ENVIRONMENT ARTIST: Johann Paniagua Anesthesia: General Specimens Removed: prostate tissue Estimated Blood Loss (mls): 100 Drains & Tubes with Location: [address] 30 ml jaime Operative Report Dictated: Yes
[2017-08-11] MEDS ORDERED: CYCLOBENZAPRINE HCL 10 MG TABLET (FP) PO PRN (09:51)
[2017-08-11] MEDS ORDERED: MIDAZOLAM HCL 2 MG/2 ML SINGLE DOSE VIAL ONE (09:53)
[2017-08-11] MEDS ORDERED: ceFAZolin SODIUM 1 GM VIAL ONE (09:54)
[2017-08-11] MEDS ORDERED: PROPOFOL 20 ML ONE (09:54)
[2017-08-11] MEDS ORDERED: ePHEDrine SULFATE 50 MG/1 ML AMPULE ONE (09:54)
[2017-08-11] MEDS ORDERED: DEXAMETHASONE SOD PHOSPHATE 4 MG/1 ML VIAL ONE (09:54)
[2017-08-11] MEDS ORDERED: ROCURONIUM BROMIDE 50 MG/5 ML VIAL ONE (09:54)
[2017-08-11] MEDS ORDERED: SODIUM CHLORIDE 0.9% P/F 10 ML VIAL IJ ONE (09:57)
[2017-08-11] MEDS ORDERED: ONDANSETRON 4 MG/2 ML VIAL IVPUSH PRN (09:59)
[2017-08-11] MEDS ORDERED: SEVOFLURANE 250 ML BTL ONE (10:00)
[2017-08-11] MEDS ORDERED: DESFLURANE GAS 240 ML BOTTLE IH ONE (10:00)
[2017-08-11] MEDS ORDERED: LEVOFLOXACIN 500 MG IVPB 100 ML IVPB ONE (10:09)
[2017-08-11] MEDS ORDERED: LEVOFLOXACIN 500 MG PREMIX BAG IVPB ONE (10:20)
[2017-08-11] MEDS ORDERED: GLYCOPYRROLATE 0.2 MG/1 ML VIAL ONE ×3 (11:01→11:18)
[2017-08-11] MEDS ORDERED: NEOSTIGMINE METHYLSULFATE 0.5 MG/1 ML - 10 ML MDV ONE (11:01)
[2017-08-11] MEDS ORDERED: HYDROmorphone HCL CARPU-JECT 2 MG/1 ML DISP.SYRIN ONE (11:43)
[2017-08-11] MEDS: HYDROmorphone HCL CARPU-JECT 1 MG/1 ML DISP.SYRIN IVPUSH PRN ×4 (11:45→12:45)
[2017-08-11] MEDS ORDERED: ONDANSETRON 4 MG/2 ML VIAL ONE (12:12)
--- NOTE | 2017-08-11 12:16 | OP ---
DATE OF OPERATION: 08/11/2017 PREOPERATIVE DIAGNOSIS: Benign prostatic hypertrophy with lower urinary tract symptoms. POSTOPERATIVE DIAGNOSIS: Benign prostatic hypertrophy with lower urinary tract symptoms. PROCEDURE: Bipolar transurethral resection of the prostate. SURGEON: Domingo Franco MD SEO CONSULTANT: None. ANESTHESIA: General via endotracheal tube. ANESTHESIOLOGIST: Johann Paniagua MD SPECIMENS: Prostate tissue. CULTURES: None. DRAINS: A 24-Afghan 3-way Joshi catheter, a 30-mL balloon.. ESTIMATED BLOOD LOSS: 100 mL. COMPLICATIONS: None. PROCEDURE WAS FOLLOWS: Patient was brought into the operating room, placed on the operating table in supine position. After administration of intravenous antibiotics, sequential compression devices were placed, and general anesthesia was administered via endotracheal tube. The patient was then placed in the dorsal lithotomy position. The peritoneum and genitals were prepped and draped in the usual sterile manner. The urethral meatus was then dilated 22-Afghan to 30-Afghan with sounds. Now, the 26-Afghan resectoscope sheath with visualizing obturator was inserted into the anterior urethra under direct vision. The anterior urethra was normal. The prostatic urethra measured approximately 5 cm in length and demonstrated moderate to severe bilobar occlusion. The bladder was entered and thoroughly inspected. There were no foreign bodies, tumors, stones, or inflammation. Both ureteral orifices were in their usual location with clear efflux bilaterally. The working element bipolar resectoscope was inserted and the TURP was performed in standard fashion by first creating a groove in the left lateral lobe from the area of the bladder neck to the verumontanum down to the level fo the capsular fibers. The left lateral lobe of the prostate was then sequentially resected from the 2 to the 6 o'clock position from the area of the bladder neck to the verumontanum down to the level of the capsular fibers. In a similar manner, the right lateral lobe of the prostate was resected. The roof of the prostate was resected and the floor of the prostate was resected. Hemostasis was assured with electrocautery. All resected prostatic tissue was removed from the bladder using Ellik evacuator. Hemostasis was assured. Both ureteral orifices were intact at the end of the procedure. Now, the bladder was left full and the instruments removed. A 24-Afghan 3-way Joshi catheter was inserted into the bladder, 30 mL were placed in the balloon, placed on continuous bladder irrigation, returned minimally blood tinged. He tolerated the procedure well, was extubated in the operating room, transferred to the recovery room in stable condition. DOMINGO FRANCO M.D. [id number]
[2017-08-11] MEDS: METOPROLOL TARTRATE 50 MG TABLET (FP) PO SCH ×2 (14:22→21:50)
[2017-08-11] MEDS: amLODIPine BESYLATE 10 MG TABLET (FP) PO SCH (14:22)
[2017-08-11] MEDS: LORATADINE 10 MG TABLET PO SCH (14:22)
[2017-08-11] MEDS: guaiFENesin 600 MG TABLET.ER (FP) PO SCH ×2 (14:22→21:50)
[2017-08-11] MEDS: ALPRAZolam 0.25 MG TABLET PO SCH ×2 (14:23→21:50)
[2017-08-11] MEDS: RANITIDINE HCL 150 MG TABLET (FP) PO SCH (14:23)
[2017-08-11] MEDS: oxyCODONE HCL 5 MG TABLET PO PRN ×2 (15:19→20:23)
[2017-08-11] MEDS: ACETAMINOPHEN 325 MG TABLET (FP) PO PRN ×2 (15:20→20:25)
[2017-08-12] MEDS: oxyCODONE HCL 5 MG TABLET PO PRN ×2 (01:11→06:56)
[2017-08-12] MEDS: ACETAMINOPHEN 325 MG TABLET (FP) PO PRN ×2 (01:12→06:55)
[2017-08-12] MEDS ORDERED: LEVOFLOXACIN 500 MG TABLET (FP) PO SCH (06:00)
[2017-08-12 09:00] VITALS: BP 113/60; PULSE 76; TEMP 97.9
[2017-08-12] MEDS: LORATADINE 10 MG TABLET PO SCH (09:17)
[2017-08-12] MEDS: amLODIPine BESYLATE 10 MG TABLET (FP) PO SCH (09:17)
[2017-08-12] MEDS: METOPROLOL TARTRATE 50 MG TABLET (FP) PO SCH (09:17)
[2017-08-12] MEDS: guaiFENesin 600 MG TABLET.ER (FP) PO SCH (09:17)
[2017-08-12] MEDS: RANITIDINE HCL 150 MG TABLET (FP) PO SCH (09:17)
--- NOTE | 2017-08-14 15:07 | PATH ---
Surgical Pathology Report Patient Name: DENISE NO [facility]. Rec. #: [id number] /Age/Gender: 1960 (Age: 56) / M Account: [id number] Location: AMBULATORY SURG Taken: 08/11/2017 Received: 08/11/2017 Reported: 08/14/2017 Physicians: Domingo Mario M.D. Specimen(s) Received PROSTATE CHIPS Clinical History BPH Final Diagnosis PROSTATE, TUR: PROSTATE ADENOCARCINOMA, JOSLYN SCORE 4+4 =8, PRESENT IN ~75-80% OF THE EXAMINED MATERIAL; PERINEURAL AND LYMPHOVASCULAR INVASION PRESENT. BACKGROUND PROSTATE TISSUE WITH GLANDULAR AND STROMAL HYPERPLASIA. Comment: Immunohistochemical stains for CK7 and CK20 performed and interpreted [facility] on block #1 show the following: the tumor cells are negative for CK7 and CK20, which supportive of prostate origin of the tumor. The case was discussed with Dr. Mario on 08/14/17. Electronically Signed Stewart Hinds M.D. Gross Description Received in formalin labelled "prostate tissue" is a 20.0 gm, 8 x 7 x 2 cm aggregate of rubbery pink and cheatham tissue fragments. No yellow or indurated areas are identified. A career representative portion (~70% of tissue) is submitted in 10 cassettes. [facility] [place]/08/11/2017 [facility]/08/11/2017
== END 2017-08-12 11:04 | disposition home or self-care (01) ==
LOC: JASUSAT 08:25 → J6S 14:07 → JASUSAT 08-12 11:04
PROVIDERS: ATTEND Urology
PROC: 0VT08ZZ Resection of Prostate, Via Natural or Artificial Opening Endoscopic (ICD-10-PCS; principal; 2017-08-11 09:30)
DX: N40.1 Benign prostatic hyperplasia with lower urinary tract symptoms (principal); R33.9 Retention of urine, unspecified; Z80.42 Family history of malignant neoplasm of prostate; I10 Essential (primary) hypertension
CPT/HCPCS: 86850; 86900; 86901; 88305-TC; 88341-TC; 88342-TC; 94760

== ENCOUNTER 2018-12-03 20:34 | Inpatient (IN) | payer OTHER ==
[~2018-12-03 20:34] MED LIST: PNEUMOC 13-VAL CONJ-DIP CRM/PF 0.5 ML DISP.SYRIN IM ONE
--- NOTE | 2018-12-03 20:37 | PDOC ---
History of Present Illness - History of Present Illness Initial Comments: This patient is a 58 year old male with PMHx of Stage IV prostate CA with metastases (dx in Sep 2017), HTN, non sustained VT, anemia secondary to GI bleed, degenerative spinal disease, who presents s/p cat bite to hand last night at 9:09pm. Patient states that his house cat (previously a stray 5 yrs ago ) clamped down on his right thumb last night. He noticed that his hand became red, hot, and began to streak up his arm. He reports feeling tired during the day and notes subjective fever. PCP: Ruba Barragan Urologist: Dr. Domingo Mario Allergies: penicillin <Shanika Orozco - Last Filed: 12/03/18 20:56> - General History Source: Patient Exam Limitations: No Limitations <Monica Ansari - Last Filed: 12/04/18 01:30> - General Chief Complaint: Bite Stated Complaint: CAT BITE Time Seen by Provider: 12/03/18 20:36 Past History <Shanika Orozco - Last Filed: 12/03/18 20:56> - Past Medical History Anemia: Yes Asthma: No Cancer: Yes (PROSTATE) Cardiac Disorders: Yes (NONSUSTAINED VT) CVA: No COPD: No CHF: No Dementia: No Diabetes: No GI Disorders: No Disorders: Yes (BPH, HYDRONEPHROSIS, URINARY RETETNION, OBSTRUCTIVE UROPATHY) HTN: Yes Hypercholesterolemia: No Liver Disease: No Seizures: No Thyroid Disease: No - Surgical History Abdominal Surgery: No Appendectomy: No Cardiac Surgery: No Cholecystectomy: No Lung Surgery: No Neurologic Surgery: No Orthopedic Surgery: Yes (01/2012) - Suicide/Smoking/Psychosocial Hx Smoking History: Former smoker Have you smoked in the past 12 months: No Number of Cigarettes Smoked Daily: 0 If you are a former smoker, when did you quit?: 1998 'Breaking Loose' booklet given: 01/26/14 Hx Alcohol Use: No Drug/Substance Use Hx: No Substance Use Type: None Hx Substance Use Treatment: No <Monica Ansari - Last Filed: 12/04/18 01:30> - Past Medical History Allergies/Adverse Reactions: Allergies Allergy/AdvReac Type Severity Reaction Status Date / Time Penicillins Allergy Intermediate Hives Verified 08/02/17 18:05 cat pelt standardized Allergy Verified 08/02/17 18:05 allergenic ex [Cat Pelt Std Extract] Home Medications: Ambulatory Orders Amlodipine Besylate [Norvasc -] 10 mg PO DAILY 05/28/17 Metoprolol Tartrate [Lopressor] 50 mg PO BID 05/28/17 Citalopram Hydrobromide [Celexa -] 20 mg PO DAILY 12/03/18 Oxycodone HCl/Acetaminophen [Percocet 10-325 mg Tablet] 1 each PO Q4HWA Review of Systems - Review of Systems Comments:: GENERAL/CONSTITUTIONAL: +subjective fever. No chills, weakness, loss of appetite. HEAD, EYES, EARS, NOSE AND THROAT: No: change in vision, ear pain, discharge, sore throat, throat swelling. CARDIOVASCULAR: No: chest pain, lightheadedness, palpitations, syncope RESPIRATORY: No: cough, shortness of breath, wheezing, hemoptysis, stridor. GASTROINTESTINAL: No: nausea, vomiting, abdominal cramping, diarrhea, rectal bleeding, constipation. GENITOURINARY: No: dysuria, hematuria, frequency, urgency, flank pain. MUSCULOSKELETAL: No: back pain, neck pain, joint pain, muscle swelling or pain SKIN: +cat bite to right thumb with red streaking up arm. NEUROLOGIC: No: headache, vertigo, paresthesias, weakness ENDOCRINE: No: unexplained weight gain or loss HEMATOLOGIC/LYMPHATIC: No: anemia, easy bleeding, swelling nodes 12/03/18 20:57 <Shanika Orozco - Last Filed: 12/03/18 20:56> *Physical Exam - Vital Signs Last Vital Signs Temp Pulse Resp BP Pulse Ox 98.6 F 100 H 14 127/80 98 12/03/18 20:37 12/03/18 20:37 12/03/18 20:37 12/03/18 20:37 12/03/18 20:37 - Physical Exam Comments: GENERAL: The patient is in no acute distress. LUNGS: Breath sounds equal, clear to auscultation bilaterally. No wheezes, and no crackles. HEART:Regular rate and rhythm, normal S1 and S2 without murmur, rub or gallop. EXTREMITIES: Normal range of motion, no edema. No clubbing or cyanosis. NEUROLOGICAL: Cranial nerves II through XII grossly intact. Normal speech. No focal neurological deficits. MUSCULOSKELETAL: Back nontender to palpation, no CVA tenderness SKIN: 2 bite prado on right thumb and area of erythema that radiates up right medial arm. Warm to touch. <Shanika Orozco - Last Filed: 12/03/18 20:56> Moderate Sedation - Procedure Monitoring Vital Signs: Procedure Monitoring Vital Signs Temperature 98.6 F 12/03/18 20:37 Pulse Rate 100 H 12/03/18 20:37 Respiratory Rate 14 12/03/18 20:37 Blood Pressure 127/80 12/03/18 20:37 O2 Sat by Pulse Oximetry (%) 98 12/03/18 20:37 <Shanika Orozco - Last Filed: 12/03/18 20:56> ED Treatment Course - Medications Given in the ED: ED Medications Discontinued Medications Generic Name Dose Route Start Last Admin Trade Name Freq PRN Reason Stop Dose Admin Diphtheria/Tetanus/Acell Pertussis 0.5 ml 12/03/18 20:41 12/03/18 20:42 Boostrix - IM 12/03/18 20:42 0.5 ml .ONCE ONE Administration <Shanika Orozco - Last Filed: 12/03/18 20:56> - LABORATORY CBC & Chemistry Diagram: 12/03/18 20:42 12/03/18 20:42 <Monica Ansari - Last Filed: 12/04/18 01:30> Medical Decision Making - Medical Decision Making 12/03/18 21:36 58 yo M LHD, presenting with right hand cat bite with cellulitis and lymphangitis Pt will pain and swelling CXR: nml Hand XR: no gas in the soft tissues EKG - NSR rate of 73 bpm, axis nml, intervals nml, no st elevation or depression , t waves upright 12/03/18 21:50 12/03/18 22:33 Laboratory Tests 12/03/18 12/03/18 20:42 20:42 WBC 10.9 H Hgb 13.6 Hct 41.3 Plt Count 377 BUN 16 Creatinine 0.9 Call placed to hospitalist Admitted to their service consult called to Dr Yu, he is not on service Dr Avendano to be called Clinical Impression: Right thumb cat bite, initial presentation Cellulitis hand, initial presentation Lymphangitis, initial presentation 12/04/18 01:28 <Monica Ansari - Last Filed: 12/04/18 01:30> *DC/Admit/Observation/Transfer - Attestations Scribe Attestion: 12/03/18 20:52 Documentation prepared by Shanika Orozco, acting as medical lab technologist for Monica Ansari MD. <Shanika Orozco - Last Filed: 12/03/18 20:56> - Discharge Dispostion Decision to Admit order: Yes <Monica Ansari - Last Filed: 12/04/18 01:30> Diagnosis at time of Disposition: Cellulitis and abscess of hand, Lymphangitis Cat bite Qualifiers: Encounter type: initial encounter Qualified Code(s): W55.01XA - Bitten by cat, initial encounter - Discharge Dispostion Condition at time of disposition: Stable
[2018-12-03] MEDS ORDERED: DIPHTH,PERTUSS(ACELL),TET 0.5 ML DISP.SYRIN IM ONE (20:41)
[2018-12-03] MEDS ORDERED: TETANUS AND DIPHTHERIA TOXOID 0.5 ML DISP.SYRIN IM ONE (20:44)
[2018-12-03 21:42] LABS: ALK PHOS 53 U/L (32-92); ANION GAP 9 MMOL/L (8-16); BILIRUBIN,TOTAL 0.5 mg/dl (0.2-1.0); BLOOD UREA NITROGEN 16 mg/dl (7-18); CALCIUM 9.2 mg/dl (8.4-10.2); CHLORIDE 103 mmol/L (98-107); CO2 25 mmol/L (22-28); CREATININE 0.9 mg/dl (0.6-1.3); GLUCOSE,RANDOM 120 mg/dl (74-106); SGOT/AST 26 U/L (10-42); SGPT/ALT 30 U/L (10-40); SODIUM 137 mmol/L (136-145); TOT PROT 7.1 g/dl (6.4-8.3)
[2018-12-03 21:44] LABS: BASO % 0.2 % (0-2.0); EOS % 1.7 % (0-4.5); HEMATOCRIT 41.3 % (35.4-49); HEMOGLOBIN 13.6 GM/dl (11.7-16.9); LYMPH % 20.7 % (8-40); MCH 29.3 pg (25.7-33.7); MCHC 33.1 g/dl (32.0-35.9); MEAN CELL VOLUME 88.6 fl (80-96); MEAN PLT VOLUME 7.7 fl (7.5-11.1); MONO % 10.7 % (3.8-10.2); NEUT % 66.7 % (42.8-82.8); PLATELET COUNT 377 K/MM3 (134-434); RBC 4.66 M/mm3 (4.00-5.60); RDW 12.2 % (11.9-15.9); WHITE BLOOD COUNT 10.9 K/mm3 (4.0-10.8)
[2018-12-03 23:53] VITALS: BMI 30.5
--- NOTE | 2018-12-04 00:12 | HP ---
CHIEF COMPLAINT: R- hand pain, swelling, redness PCP: Dr. Vikram Hobbs HISTORY OF PRESENT ILLNESS: This is a 58 y/o man with a past medical history of Stage 4 Metastatic Prostate Ca (dx 09/2017, on Hormone injections), Hypertension, DJD, BPH. Who presents to the ED with pain redness and swelling to R- thumb/hand which has now has spread to his wrist and upper arm. Patient reports that while attempting to check his cat's paw it bite him on the right thumb yesterday. He reports cleaning the wound, attempting to express it with only bloody drainage no pus. Patient reports that today over a period of 8 hours the redness and swelling has spread to his wrist and upper arm. He reports being able to make a fist, and has sensation to his hand and fingers. Patient reports taking Percocet which he is on for the Cancer pain. Patient denies fever, chills, cough, SOB, CP, AP, N/V/D , constipation ER course was notable for: (1) WBC 10.9 (2) R- Hand Xray- no gross bone or soft tissue abnormality (3) Recent Travel: None PAST MEDICAL HISTORY: See HPI PAST SURGICAL HISTORY: Turp 07/2017 Spinal Fusion Cyst Removal (Groin) Hemorrhoidectomy Tonsillectomy Social History: Smoking: Former (in the 80s) Alcohol: Former Drugs: Denies Family History: Father- Prostate Ca Mother- HTN, Stroke Sister- Breast Ca, HTN Brother- Skin Ca Brother- HTN Maternal Grandmother- Bladder Ca Paternal Grandmother- Colon Ca Allergies Penicillins Allergy (Intermediate, Verified 08/02/17 18:05) Hives cat pelt standardized allergenic ex [Cat Pelt Std Extract] Allergy (Verified 18:05) HOME MEDICATIONS: Home Medications Medication Instructions Recorded Amlodipine Besylate [Norvasc -] 10 mg PO DAILY 05/28/17 Metoprolol Tartrate [Lopressor] 50 mg PO BID 05/28/17 Citalopram Hydrobromide [Celexa -] 20 mg PO DAILY 12/03/18 Oxycodone HCl/Acetaminophen 1 each PO Q4HWA 12/03/18 [Percocet 10-325 mg Tablet] REVIEW OF SYSTEMS CONSTITUTIONAL: fever Absent: chills, diaphoresis, generalized weakness, malaise, loss of appetite, weight change HEENT: Absent: rhinorrhea, nasal congestion, throat pain, throat swelling, difficulty swallowing, mouth swelling, ear pain, eye pain, visual changes CARDIOVASCULAR: Absent: chest pain, syncope, palpitations, irregular heart rate, lightheadedness , peripheral edema RESPIRATORY: Absent: cough, shortness of breath, dyspnea with exertion, orthopnea, wheezing, stridor, hemoptysis GASTROINTESTINAL: Absent: abdominal pain, abdominal distension, nausea, vomiting, diarrhea, constipation, melena, hematochezia GENITOURINARY: Absent: dysuria, frequency, urgency, hesitancy, hematuria, flank pain, genital pain MUSCULOSKELETAL: Absent: myalgia, arthralgia, joint swelling, back pain, neck pain SKIN: Redness and Swelling to R- thumb/ hand/arm Absent: rash, itching, pallor HEMATOLOGIC/IMMUNOLOGIC: Absent: easy bleeding, easy bruising, lymphadenopathy, frequent infections ENDOCRINE: Absent: unexplained weight gain, unexplained weight loss, heat intolerance, cold intolerance NEUROLOGIC: Absent: headache, focal weakness or paresthesias, dizziness, unsteady gait, seizure, mental status changes, bladder or bowel incontinence PSYCHIATRIC: Absent: anxiety, depression, suicidal or homicidal ideation, hallucinations. PHYSICAL EXAMINATION Vital Signs - 24 hr 12/03/18 20:37 Temperature 98.6 F Pulse Rate 100 H Respiratory 14 Rate Blood Pressure 127/80 O2 Sat by Pulse 98 Oximetry (%) GENERAL: Awake, alert, and fully oriented, in no acute distress. HEAD: Normal with no signs of trauma. EYES: Pupils equal, round and reactive to light, extraocular movements intact, sclera anicteric, conjunctiva clear. No lid lag. EARS, NOSE, THROAT: Ears normal, nares patent, oropharynx clear without exudates. Moist mucous membranes. NECK: Normal range of motion, supple without lymphadenopathy, JVD, or masses. LUNGS: Breath sounds equal, clear to auscultation bilaterally. No wheezes, and no crackles. No accessory muscle use. HEART: Regular rate and rhythm, normal S1 and S2 without murmur, rub or gallop. ABDOMEN: Soft, nontender, not distended, normoactive bowel sounds, no guarding, no rebound, no masses. No hepatomegaly or splenomegaly. MUSCULOSKELETAL: Normal range of motion at all joints. No bony deformities or tenderness. No CVA tenderness. UPPER EXTREMITIES: 2+ pulses, warm, well-perfused. No cyanosis. No clubbing. No peripheral edema. LOWER EXTREMITIES: 2+ pulses, warm, well-perfused. No calf tenderness. No peripheral edema. NEUROLOGICAL: Cranial nerves II-XII intact. Normal speech. Normal gait. PSYCHIATRIC: Cooperative. Good eye contact. Appropriate mood and affect. SKIN: Bite prado x2 to R- thumb, Erythematous, Warm to touch, Induration and streaking from R- thumb to R- upper arm. dry, normal turgor, no rashes noted. normal capillary refill. Laboratory Results - last 24 hr 12/03/18 12/03/18 12/03/18 20:42 20:42 20:42 WBC 10.9 H RBC 4.66 Hgb 13.6 Hct 41.3 MCV 88.6 MCH 29.3 MCHC 33.1 RDW 12.2 Plt Count 377 MPV 7.7 Absolute Neuts (auto) 7.2 Neutrophils % 66.7 Lymphocytes % 20.7 Monocytes % 10.7 H Eosinophils % 1.7 Basophils % 0.2 Sodium 137 Potassium 4.0 Chloride 103 Carbon Dioxide 25 Anion Gap 9 BUN 16 Creatinine 0.9 Creat Clearance w eGFR > 60 Random Glucose 120 H Lactic Acid 1.3 Calcium 9.2 Total Bilirubin 0.5 AST 26 D ALT 30 D Alkaline Phosphatase 53 Total Protein 7.1 Albumin 4.0 ASSESSMENT/PLAN: This is a 58 y/o man with a PMHx of: Stage 4 Metastatic Prostate Ca, HTN, DJD. Admitted for Cellulitis, Lymphangitis to R- hand/arm for further evaluation of their emergent condition. Plan: See Problem List FEN D51/2NS@60ml/hr Replete lytes prn NPO DVT ppx OOB SCDs Heparin SQ Dispo: Requires Inpatient Care Problem List - Problem (1) Cellulitis and abscess of hand Assessment/Plan: Likely secondary to Cat Bite WBC 10.9 R- Hand Xray- no gross bone or soft tissue abnormality seen, no fx or dislocation Levaquin and Flagyl started in ED, will continue Appreciate ID consult Appreciate Surgical consult Monitor CBC Monitor vitals Elevate extremity Wound care Neurovascular checks Percocet prn Code(s): L03.119 - CELLULITIS OF UNSPECIFIED PART OF LIMB; L02.519 - CUTANEOUS ABSCESS OF UNSPECIFIED HAND (2) Lymphangitis Assessment/Plan: See above Code(s): I89.1 - LYMPHANGITIS (3) Cat bite Assessment/Plan: TD vaccine given in ED WBC 10.9 R- hand xray- no gross bone or soft tissue abnormality Started on Levaquin, Flagyl in ED for cellulitis, will continue Wound care Appreciate Surgical consult Monitor CBC Monitor vitals Code(s): W55.01XA - BITTEN BY CAT, INITIAL ENCOUNTER Qualifiers: Encounter type: initial encounter Qualified Code(s): W55.01XA - Bitten by cat, initial encounter (4) HTN (hypertension) Assessment/Plan: Stable Continue home meds Monitor renal function Code(s): I10 - ESSENTIAL (PRIMARY) HYPERTENSION (5) BPH (benign prostatic hyperplasia) Assessment/Plan: Continue home med Code(s): N40.0 - BENIGN PROSTATIC HYPERPLASIA WITHOUT LOWER URINRY TRACT SYMP Visit type - Emergency Visit Emergency Visit: Yes ED Registration Date: 12/03/18 Care time: The patient presented to the Emergency Department on the above date and was hospitalized for further evaluation of their emergent condition. - New Patient This patient is new to me today: Yes Date on this admission: 12/04/18 - Critical Care Critical Care patient: No
[2018-12-04] MEDS: oxyCODONE HCL 5 MG TABLET PO PRN ×3 (01:30→18:57)
[2018-12-04] MEDS: ACETAMINOPHEN 325 MG TABLET (FP) PO PRN ×3 (01:31→18:58)
--- NOTE | 2018-12-04 07:18 | CONSULT ---
Consult Consult Specialty:: Hand and Microsurgery Reason for Consultation:: cellulitis from cat bite - History of Present Illness Chief Complaint: cat bite - History Source History Provided By: Patient, Medical Record Limitations to Obtaining History: No Limitations - Past Medical History Cardio/Vascular: Yes: HTN, Other (non sust [place]) Renal/: Yes: BPH, UTI - Alcohol/Substance Use Hx Alcohol Use: No - Smoking History Smoking history: Former smoker Have you smoked in the past 12 months: No Aproximately how many cigarettes per day: 0 If you are a former smoker, when did you quit?: 1998 Home Medications - Allergies Allergies/Adverse Reactions: Allergies Allergy/AdvReac Type Severity Reaction Status Date / Time Penicillins Allergy Intermediate Hives Verified 08/02/17 18:05 cat pelt standardized Allergy Verified 08/02/17 18:05 allergenic ex [Cat Pelt Std Extract] - Home Medications Home Medications: Ambulatory Orders Amlodipine Besylate [Norvasc -] 10 mg PO DAILY 05/28/17 Metoprolol Tartrate [Lopressor] 50 mg PO BID 05/28/17 Citalopram Hydrobromide [Celexa -] 20 mg PO DAILY 12/03/18 Oxycodone HCl/Acetaminophen [Percocet 10-325 mg Tablet] 1 each PO Q4HWA Family Disease History - Family Disease History Family Disease History: Other: Father (prostate cancer) Physical Exam Vital Signs: Vital Signs Temperature 98.4 F 12/04/18 06:10 Pulse Rate 64 12/04/18 06:10 Respiratory Rate 16 12/04/18 06:10 Blood Pressure 137/68 12/04/18 06:10 O2 Sat by Pulse Oximetry (%) 95 12/04/18 06:11
[2018-12-04 07:40] LABS: BASO % 0.2 % (0-2.0); EOS % 2.6 % (0-4.5); HEMATOCRIT 39.3 % (35.4-49); HEMOGLOBIN 12.8 GM/dl (11.7-16.9); LYMPH % 29.6 % (8-40); MCH 29.1 pg (25.7-33.7); MCHC 32.7 g/dl (32.0-35.9); MEAN CELL VOLUME 89.1 fl (80-96); MEAN PLT VOLUME 7.6 fl (7.5-11.1); MONO % 12.3 % (3.8-10.2); NEUT % 55.3 % (42.8-82.8); PLATELET COUNT 325 K/MM3 (134-434); RBC 4.41 M/mm3 (4.00-5.60); RDW 12.7 % (11.9-15.9); WHITE BLOOD COUNT 8.5 K/mm3 (4.0-10.8)
[2018-12-04 07:59] LABS: ANION GAP 8 MMOL/L (8-16); BLOOD UREA NITROGEN 14 mg/dl (7-18); CALCIUM 8.7 mg/dl (8.4-10.2); CHLORIDE 103 mmol/L (98-107); CO2 26 mmol/L (22-28); CREATININE 0.8 mg/dl (0.6-1.3); GLUCOSE,RANDOM 116 mg/dl (74-106); POTASSIUM 3.8 mmol/L (3.5-5.1); SODIUM 137 mmol/L (136-145)
--- NOTE | 2018-12-04 08:51 | CONSULT ---
Consult Consult Specialty:: Plastic Surgery - Past Medical History Cardio/Vascular: Yes: HTN, Other (non sust [place]) Renal/: Yes: BPH, UTI - Alcohol/Substance Use Hx Alcohol Use: No - Smoking History Smoking history: Former smoker Have you smoked in the past 12 months: No Aproximately how many cigarettes per day: 0 If you are a former smoker, when did you quit?: 1998 Home Medications - Allergies Allergies/Adverse Reactions: Allergies Allergy/AdvReac Type Severity Reaction Status Date / Time Penicillins Allergy Intermediate Hives Verified 08/02/17 18:05 cat pelt standardized Allergy Verified 08/02/17 18:05 allergenic ex [Cat Pelt Std Extract] - Home Medications Home Medications: Ambulatory Orders Amlodipine Besylate [Norvasc -] 10 mg PO DAILY 05/28/17 Metoprolol Tartrate [Lopressor] 50 mg PO BID 05/28/17 Citalopram Hydrobromide [Celexa -] 20 mg PO DAILY 12/03/18 Oxycodone HCl/Acetaminophen [Percocet 10-325 mg Tablet] 1 each PO Q4HWA Family Disease History - Family Disease History Family Disease History: Other: Father (prostate cancer) Physical Exam Vital Signs: Vital Signs Temperature 98.4 F 12/04/18 06:10 Pulse Rate 64 12/04/18 06:10 Respiratory Rate 16 12/04/18 06:10 Blood Pressure 137/68 12/04/18 06:10 O2 Sat by Pulse Oximetry (%) 95 12/04/18 06:11 Labs: CBC, BMP 12/04/18 07:00 12/04/18 07:00 Assessment/Plan Patient is a 60 year-old male who presented to the ER last night with right hand and forearm celulitis one day after sustaining a bite from one of his household cats. He has been on IV antibiotics since last night and has now received two doses. Physical exam reveals two puncture wounds on the right proximal thumb- one dorsal and one on the radial aspect. There is no drainage from these sites. The dorsal and radial thumb is cellulitic and that is outlined from last night. There is extension of this cellulitis along the radial forearm. There is slight improvement from the outlined areas. There is no fluctuance and no pain on extension, although flexion is painful. The patient states this pain with flexion is no different than last night. There is no pain over the flexor tendon sheaths at the wrist. A&P- This appears a local soft tissue infection and reactive cellulitis, and not tenosynovitis or any deep-space infection. I would expect resolution with antibiotics. If there is no significant change or worsening over the next 24- 48 hours then please reconsult. Thank you.
[2018-12-04] MEDS: HEPARIN NA (PORCINE) 5,000 UNITS/ML 1ML VIAL SQ SCH ×2 (09:34→21:21)
[2018-12-04] MEDS: CITALOPRAM HYDROBROMIDE 20 MG TABLET (FP) PO SCH (09:34)
[2018-12-04] MEDS: METOPROLOL TARTRATE 50 MG TABLET (FP) PO SCH ×2 (09:38→21:21)
[2018-12-04] MEDS: amLODIPine BESYLATE 10 MG TABLET (FP) PO SCH (09:39)
[2018-12-04] MEDS ORDERED: PNEUMOC 13-VAL CONJ-DIP CRM/PF 0.5 ML DISP.SYRIN IM ONE (10:00)
--- NOTE | 2018-12-04 14:17 | CON.ID ---
Consult Consult Specialty:: infectious diseases Referred by:: hospitalist Reason for Consultation:: cellulitis of the rt arm and cat bite tot he rt arm - Past Medical History Cardio/Vascular: Yes: HTN, Other (non sust [place]) Renal/: Yes: BPH, UTI - Alcohol/Substance Use Hx Alcohol Use: No - Smoking History Smoking history: Former smoker Have you smoked in the past 12 months: No Aproximately how many cigarettes per day: 0 If you are a former smoker, when did you quit?: 1998 Home Medications - Allergies Allergies/Adverse Reactions: Allergies Allergy/AdvReac Type Severity Reaction Status Date / Time Penicillins Allergy Intermediate Hives Verified 08/02/17 18:05 cat pelt standardized Allergy Verified 08/02/17 18:05 allergenic ex [Cat Pelt Std Extract] - Home Medications Home Medications: Ambulatory Orders Amlodipine Besylate [Norvasc -] 10 mg PO DAILY 05/28/17 Metoprolol Tartrate [Lopressor] 50 mg PO BID 05/28/17 Citalopram Hydrobromide [Celexa -] 20 mg PO DAILY 12/03/18 Oxycodone HCl/Acetaminophen [Percocet 10-325 mg Tablet] 1 each PO Q4HWA Family Disease History - Family Disease History Family Disease History: Other: Father (prostate cancer) Physical Exam Vital Signs: Vital Signs Temperature 97.9 F 12/04/18 14:11 Pulse Rate 89 12/04/18 14:11 Respiratory Rate 18 12/04/18 14:11 Blood Pressure 130/61 12/04/18 14:11 O2 Sat by Pulse Oximetry (%) 94 L 12/04/18 14:11 Labs: CBC, BMP 12/04/18 07:00 12/04/18 07:00
--- NOTE | 2018-12-04 14:36 | PN ---
Physical Exam: SUBJECTIVE: Patient seen and examined at bedside. Right arm is elevated, patient complains of pain in right hand in area of bite wounds, pain flexing and extending thumb and forefinger. OBJECTIVE: Vital Signs Period Temp Pulse Resp BP Sys/Cordero Pulse Ox Last 24 Hr 97.9 F-98.8 F 64-100 14-18 123-137/50-80 94-98 GENERAL: The patient is awake, alert, and fully oriented, in no acute distress. LUNGS: CTA HEART: Regular rate and rhythm, S1, S2 ABDOMEN: Soft, nontender, nondistended RIGHT UPPER EXTREMITY: 2 puncture wounds on right thumb, no drainage; streaking extending from hand to bicep, has not spread beyond inked border done in ED NEUROLOGICAL: Cranial nerves II through XII grossly intact. Normal speech, gait not observed. Laboratory Results - last 24 hr 12/03/18 12/03/18 12/03/18 20:42 20:42 20:42 WBC 10.9 H RBC 4.66 Hgb 13.6 Hct 41.3 MCV 88.6 MCH 29.3 MCHC 33.1 RDW 12.2 Plt Count 377 MPV 7.7 Absolute Neuts (auto) 7.2 Neutrophils % 66.7 Lymphocytes % 20.7 Monocytes % 10.7 H Eosinophils % 1.7 Basophils % 0.2 Sodium 137 Potassium 4.0 Chloride 103 Carbon Dioxide 25 Anion Gap 9 BUN 16 Creatinine 0.9 Creat Clearance w eGFR > 60 Random Glucose 120 H Lactic Acid 1.3 Calcium 9.2 Total Bilirubin 0.5 AST 26 D ALT 30 D Alkaline Phosphatase 53 Total Protein 7.1 Albumin 4.0 12/04/18 12/04/18 07:00 07:00 WBC 8.5 RBC 4.41 Hgb 12.8 Hct 39.3 MCV 89.1 MCH 29.1 MCHC 32.7 RDW 12.7 Plt Count 325 MPV 7.6 Absolute Neuts (auto) 4.8 Neutrophils % 55.3 Lymphocytes % 29.6 D Monocytes % 12.3 H Eosinophils % 2.6 Basophils % 0.2 Sodium 137 Potassium 3.8 Chloride 103 Carbon Dioxide 26 Anion Gap 8 BUN 14 Creatinine 0.8 Creat Clearance w eGFR > 60 Random Glucose 116 H Lactic Acid Calcium 8.7 Total Bilirubin AST ALT Alkaline Phosphatase Total Protein Albumin Active Medications Generic Name Dose Route Start Last Admin Trade Name Freq PRN Reason Stop Dose Admin Acetaminophen 325 mg 12/04/18 01:22 12/04/18 07:35 Tylenol - PO 12/07/18 01:21 325 mg Q4H PRN Administration PAIN LEVEL 6-10 Amlodipine Besylate 10 mg 12/04/18 10:00 12/04/18 09:39 Norvasc - PO 10 mg DAILY ORIN Administration Citalopram Hydrobromide 20 mg 12/04/18 10:00 12/04/18 09:34 Celexa - PO 20 mg DAILY ORIN Administration Heparin Sodium (Porcine) 5,000 unit 12/04/18 10:00 12/04/18 09:34 Heparin - SQ 5,000 unit BID ORIN Administration Clindamycin Phosphate 300 mg in 50 mls @ 100 mls/hr 12/04/18 15:00 Cleocin 300 Mg Premix Ivpb IVPB Q6H-IV [facility]IN Protocol Ertapenem 1 gm/ Sodium 50 mls @ 50 mls/hr 12/04/18 14:15 Chloride IVPB DAILY [facility] Protocol Metoprolol Tartrate 50 mg 12/04/18 10:00 12/04/18 09:38 Lopressor - PO 50 mg BID ORIN Administration Oxycodone HCl 10 mg 12/04/18 01:22 12/04/18 07:36 Roxicodone - PO 10 mg Q4H PRN Administration PAIN LEVEL 6-10 ASSESSMENT/PLAN 58 year-old male with a PMH significant for HTN, Stage IV prostate cancer with extensive metastatic involvement on hormone therapy. Admitted for RUE cellulitis secondary to a cat bite requiring IV antibiotics. Cellulitis RUE --secondary to domestic cat bite --patient is immunosuppressed --seen and evaluated by ID, switched to ertapenem(day #1) and clindamycin ( day #1) --seen and evaluated by hand surgeon, appears to be local soft tissue infection and reactive cellulitis, no tenosynovitis or deep-space infection; manage with antibiotics; if no significant change or worsening over next 24 to 48 hours, will re-evaluate --MRI ordered Hypertension --BP stable --continue metoprolol, amlodipine Prostate cancer --is followed by Dr. Shelbi HINTON Fluids: PO intake adequate Electrolytes: replete as indicated Nutrition: regular diet DVT prophylaxis: subq heparin Dispo: continues to require inpatient care. Full code. Visit type - Emergency Visit Emergency Visit: Yes ED Registration Date: 12/03/18 Care time: The patient presented to the Emergency Department on the above date and was hospitalized for further evaluation of their emergent condition. - New Patient This patient is new to me today: Yes Date on this admission: 12/05/18 - Critical Care Critical Care patient: No
[2018-12-04] MEDS ORDERED: ERTAPENEM SODIUM 1 GM VIAL ONE (15:04)
[2018-12-04] MEDS ORDERED: SODIUM CHLORIDE 50 ML IVPB ONE (15:04)
[2018-12-04] MEDS: CLINDAMYCIN 300 MG PREMIX IVPB 300 MG/50 ML BAG IVPB SCH ×2 (15:11→20:04)
[2018-12-04] MEDS: ERTAPENEM SODIUM 1 GM in SODIUM CHLORIDE 50 ML IVPB SCH (15:11)
--- NOTE | 2018-12-04 16:57 | EKG ---
Test Reason : Blood Pressure : / mmHG Vent. Rate : 073 BPM Atrial Rate : 073 BPM P-R Int : 160 ms QRS Dur : 090 ms QT Int : 372 ms P-R-T Axes : 022 015 017 degrees QTc Int : 409 ms NORMAL SINUS RHYTHM LEFT ATRIAL ENLARGEMENT INFERIOR INFARCT , AGE UNDETERMINED ABNORMAL ECG Confirmed by MD FELICIA, MARTHA ([id number]) on 12/04/2018 4:57:36 PM Referred By: SHAKA Confirmed By:MARTHA DUARTE MD
[2018-12-05] MEDS: CLINDAMYCIN 300 MG PREMIX IVPB 300 MG/50 ML BAG IVPB SCH ×4 (03:20→20:31)
[2018-12-05] MEDS: oxyCODONE HCL 5 MG TABLET PO PRN ×3 (07:53→20:31)
[2018-12-05] MEDS: ACETAMINOPHEN 325 MG TABLET (FP) PO PRN (07:54)
[2018-12-05 08:02] LABS: ALBUMIN 3.5 g/dl (3.4-5.0); ALK PHOS 44 U/L (45-117); ANION GAP 7 MMOL/L (8-16); BILIRUBIN,TOTAL 0.4 mg/dl (0.2-1); BLOOD UREA NITROGEN 12 mg/dl (7-18); CALCIUM 8.4 mg/dl (8.5-10); CHLORIDE 107 mmol/L (98-107); CO2 24 mmol/L (21-32); CREATININE 0.6 mg/dl (0.55-1.3); GLUCOSE,RANDOM 115 mg/dl (74-106); MAGNESIUM 2.1 mg/dL (1.8-2.4); POTASSIUM 3.7 mmol/L (3.5-5.1); SGOT/AST 21 U/L (15-37); SGPT/ALT 23 U/L (13-61); SODIUM 138 mmol/L (136-145)
[2018-12-05 08:05] LABS: BASO % 0.4 % (0-2.0); EOS % 3.3 % (0-4.5); HEMATOCRIT 38.3 % (35.4-49); HEMOGLOBIN 12.8 GM/dl (11.7-16.9); LYMPH % 34.9 % (8-40); MCH 29.3 pg (25.7-33.7); MCHC 33.4 g/dl (32.0-35.9); MEAN CELL VOLUME 87.7 fl (80-96); MEAN PLT VOLUME 7.4 fl (7.5-11.1); MONO % 10.5 % (3.8-10.2); NEUT % 50.9 % (42.8-82.8); PLATELET COUNT 324 K/MM3 (134-434); RBC 4.36 M/mm3 (4.00-5.60); RDW 12.3 % (11.9-15.9); WHITE BLOOD COUNT 7.3 K/mm3 (4.0-10.8)
[2018-12-05] MEDS ORDERED: SODIUM CHLORIDE 50 ML IVPB ONE (09:15)
[2018-12-05] MEDS ORDERED: ERTAPENEM SODIUM 1 GM VIAL ONE (09:15)
[2018-12-05] MEDS: amLODIPine BESYLATE 10 MG TABLET (FP) PO SCH (09:20)
[2018-12-05] MEDS: HEPARIN NA (PORCINE) 5,000 UNITS/ML 1ML VIAL SQ SCH ×2 (09:20→21:30)
[2018-12-05] MEDS: ERTAPENEM SODIUM 1 GM in SODIUM CHLORIDE 50 ML IVPB SCH (09:20)
[2018-12-05] MEDS: METOPROLOL TARTRATE 50 MG TABLET (FP) PO SCH ×2 (09:20→21:29)
[2018-12-05] MEDS: CITALOPRAM HYDROBROMIDE 20 MG TABLET (FP) PO SCH (09:21)
[2018-12-05] MEDS ORDERED: ACETAMINOPHEN 325 MG TABLET (FP) PO PRN (09:45)
[2018-12-05] MEDS ORDERED: oxyCODONE HCL 5 MG TABLET PO PRN (09:46)
--- NOTE | 2018-12-05 12:51 | PN ---
Progress Note, Physician - Current Medication List Current Medications: Active Medications Acetaminophen (Tylenol -) 650 mg PO Q6H PRN PRN Reason: PAIN LEVEL 1-5 Amlodipine Besylate (Norvasc -) 10 mg PO DAILY [facility] Last Admin: 12/05/18 09:20 Dose: 10 mg Citalopram Hydrobromide (Celexa -) 20 mg PO DAILY [facility] Last Admin: 12/05/18 09:21 Dose: 20 mg Heparin Sodium (Porcine) (Heparin -) 5,000 unit SQ BID [facility] Last Admin: 12/05/18 09:20 Dose: 5,000 unit Clindamycin Phosphate (Cleocin 300 Mg Premix Ivpb) 300 mg in 50 mls @ 100 mls/ hr IVPB Q6H-IV [facility]; Protocol Last Admin: 12/05/18 08:09 Dose: 100 mls/hr Ertapenem 1 gm/ Sodium (Chloride) 50 mls @ 100 mls/hr IVPB DAILY [facility]; Protocol Last Admin: 12/05/18 09:20 Dose: 100 mls/hr Metoprolol Tartrate (Lopressor -) 50 mg PO BID [facility] Last Admin: 12/05/18 09:20 Dose: 50 mg Oxycodone HCl (Roxicodone -) 5 mg PO Q6H PRN PRN Reason: PAIN LEVEL 6-10 - Objective Vital Signs: Vital Signs Temperature 98.3 F 12/05/18 06:34 Pulse Rate 77 12/05/18 09:38 Respiratory Rate 18 12/05/18 09:38 Blood Pressure 128/76 12/05/18 09:38 O2 Sat by Pulse Oximetry (%) 97 12/05/18 09:38 Labs: CBC, BMP 12/05/18 07:00 12/05/18 07:00
--- NOTE | 2018-12-05 13:25 | PN ---
Physical Exam: SUBJECTIVE: Patient seen and examined. Arm feels better, pain is less, more flexibility in fingers. OBJECTIVE: Vital Signs Period Temp Pulse Resp BP Sys/Cordero Pulse Ox Last 24 Hr 97.9 F-98.3 F 77-89 16-18 121-137/50-76 94-99 GENERAL: The patient is awake, alert, and fully oriented, in no acute distress. LUNGS: CTA HEART: Regular rate and rhythm, S1, S2 ABDOMEN: Soft, nontender, nondistended RIGHT UPPER EXTREMITY: 2 puncture wounds on right thumb, no drainage; streaking extending from hand to bicep resolving NEUROLOGICAL: Cranial nerves II through XII grossly intact. Normal speech, gait not observed. Laboratory Results - last 24 hr 12/05/18 12/05/18 07:00 07:00 WBC 7.3 RBC 4.36 Hgb 12.8 Hct 38.3 MCV 87.7 MCH 29.3 MCHC 33.4 RDW 12.3 Plt Count 324 MPV 7.4 L Absolute Neuts (auto) 3.8 Neutrophils % 50.9 Lymphocytes % 34.9 Monocytes % 10.5 H Eosinophils % 3.3 Basophils % 0.4 Sodium 138 Potassium 3.7 Chloride 107 Carbon Dioxide 24 Anion Gap 7 L BUN 12 Creatinine 0.6 Creat Clearance w eGFR > 60 Random Glucose 115 H Calcium 8.4 L Magnesium 2.1 Total Bilirubin 0.4 AST 21 ALT 23 Alkaline Phosphatase 44 L Total Protein 6.0 L Albumin 3.5 Active Medications Generic Name Dose Route Start Last Admin Trade Name Freq PRN Reason Stop Dose Admin Acetaminophen 650 mg 12/05/18 09:45 Tylenol - PO Q6H PRN PAIN LEVEL 1-5 Amlodipine Besylate 10 mg 12/04/18 10:00 12/05/18 09:20 Norvasc - PO 10 mg DAILY [facility] Administration Citalopram Hydrobromide 20 mg 12/04/18 10:00 12/05/18 09:21 Celexa - PO 20 mg DAILY [facility] Administration Heparin Sodium (Porcine) 5,000 unit 12/04/18 10:00 12/05/18 09:20 Heparin - SQ 5,000 unit BID ORIN Administration Clindamycin Phosphate 300 mg in 50 mls @ 100 mls/hr 12/04/18 15:00 12/05/18 08:09 Cleocin 300 Mg Premix Ivpb IVPB 100 mls/hr Q6H-IV [facility]IN Administration Protocol Ertapenem 1 gm/ Sodium 50 mls @ 100 mls/hr 12/04/18 14:15 12/05/18 09:20 Chloride IVPB 100 mls/hr DAILY [facility]IN Administration Protocol Metoprolol Tartrate 50 mg 12/04/18 10:00 12/05/18 09:20 Lopressor - PO 50 mg BID ORIN Administration Oxycodone HCl 5 mg 12/05/18 09:46 Roxicodone - PO Q6H PRN PAIN LEVEL 6-10 ASSESSMENT/PLAN 58 year-old male with a PMH significant for HTN, Stage IV prostate cancer with extensive metastatic involvement on hormone therapy. Admitted for RUE cellulitis secondary to a cat bite requiring IV antibiotics. Cellulitis RUE --clinically improved today, erythema resolving --secondary to domestic cat bite --patient is immunosuppressed --continue ertapenem(day #2) and clindamycin (day #2) --seen and evaluated by hand surgeon, appears to be local soft tissue infection and reactive cellulitis, no tenosynovitis or deep-space infection; manage with antibiotics --MRI to r/o osteo; pending dictation Hypertension --BP stable --continue metoprolol, amlodipine Prostate cancer --followed by Dr. Shelbi HINTON Fluids: PO intake adequate Electrolytes: replete as indicated Nutrition: regular diet DVT prophylaxis: subq heparin Dispo: continues to require inpatient care. Full code. Visit type - Emergency Visit Emergency Visit: Yes ED Registration Date: 12/03/18 Care time: The patient presented to the Emergency Department on the above date and was hospitalized for further evaluation of their emergent condition. - New Patient This patient is new to me today: No - Critical Care Critical Care patient: No
[2018-12-05] MEDS: DOCUSATE SODIUM 100 MG CAPSULE (FP) PO SCH (21:49)
[2018-12-05] MEDS: POLYETHYLENE GLYCOL 3350 119 GM BTL PO SCH (21:50)
[2018-12-06] MEDS: oxyCODONE HCL 5 MG TABLET PO PRN ×5 (01:04→21:14)
[2018-12-06] MEDS: CLINDAMYCIN 300 MG PREMIX IVPB 300 MG/50 ML BAG IVPB SCH ×2 (02:29→09:58)
[2018-12-06] MEDS ORDERED: ERTAPENEM SODIUM 1 GM VIAL ONE (09:31)
[2018-12-06] MEDS ORDERED: SODIUM CHLORIDE 50 ML IVPB ONE (09:32)
[2018-12-06] MEDS: ERTAPENEM SODIUM 1 GM in SODIUM CHLORIDE 50 ML IVPB SCH (09:58)
[2018-12-06] MEDS: CITALOPRAM HYDROBROMIDE 20 MG TABLET (FP) PO SCH (09:58)
[2018-12-06] MEDS: HEPARIN NA (PORCINE) 5,000 UNITS/ML 1ML VIAL SQ SCH ×2 (09:58→21:15)
[2018-12-06] MEDS: POLYETHYLENE GLYCOL 3350 119 GM BTL PO SCH ×2 (09:59→21:45)
[2018-12-06] MEDS: METOPROLOL TARTRATE 50 MG TABLET (FP) PO SCH ×2 (09:59→21:15)
[2018-12-06] MEDS: amLODIPine BESYLATE 10 MG TABLET (FP) PO SCH (09:59)
--- NOTE | 2018-12-06 10:01 | PN ---
Physical Exam: SUBJECTIVE: Patient seen and examined, pt reports Rt hand pain improving slowly , c/o Rt thumb stiffness, no numbness or tingling, reports loose stools x3 and intermittent nausea,denies cp,sob,abdominal pain,palpitations,vomiting, hematochezia or urinary symptoms. OBJECTIVE: Vital Signs Period Temp Pulse Resp BP Sys/Cordero Pulse Ox Last 24 Hr 97.8 F-98.9 F 68-77 16-19 115-128/59-69 94-96 GENERAL: The patient is awake, alert, and fully oriented, in no acute distress. LUNGS: Breath sounds equal, clear to auscultation bilaterally, no wheezes, no crackles, no accessory muscle use. HEART: Regular rate and rhythm, S1, S2 without murmur, rub or gallop. ABDOMEN: Soft, nontender, nondistended, normoactive bowel sounds, no guarding, no rebound, no hepatosplenomegaly, no masses. EXTREMITIES: 2+ pulses, warm, well-perfused, no edema, Rt thumb with mild redness, + tenderness. NEUROLOGICAL: Cranial nerves II through XII grossly intact. Normal speech, gait not observed. PSYCH: Normal mood, normal affect. SKIN: Warm, dry, normal turgor, no rashes or lesions noted Active Medications Generic Name Dose Route Start Last Admin Trade Name Freq PRN Reason Stop Dose Admin Acetaminophen 650 mg 12/05/18 16:14 Tylenol - PO Q4H PRN PAIN LEVEL 6-10 Amlodipine Besylate 10 mg 12/04/18 10:00 12/05/18 09:20 Norvasc - PO 10 mg DAILY OR[facility] Administration Citalopram Hydrobromide 20 mg 12/04/18 10:00 12/05/18 09:21 Celexa - PO 20 mg DAILY [facility] Administration Docusate Sodium 300 mg 12/05/18 22:00 12/05/18 21:49 Colace - PO Not Given HS ORIN Heparin Sodium (Porcine) 5,000 unit 12/04/18 10:00 12/05/18 21:30 Heparin - SQ 5,000 unit BID [facility] Administration Clindamycin Phosphate 300 mg in 50 mls @ 100 mls/hr 12/04/18 15:00 12/06/18 02:29 Cleocin 300 Mg Premix Ivpb IVPB 100 mls/hr Q6H-IV [facility] Administration Protocol Ertapenem 1 gm/ Sodium 50 mls @ 100 mls/hr 12/04/18 14:15 12/05/18 09:20 Chloride IVPB 100 mls/hr DAILY [facility] Administration Protocol Metoprolol Tartrate 50 mg 12/04/18 10:00 12/05/18 21:29 Lopressor - PO 50 mg BID [facility] Administration Oxycodone HCl 10 mg 12/05/18 16:14 12/06/18 01:04 Roxicodone - PO 10 mg Q4H PRN Administration PAIN LEVEL 6-10 Polyethylene Glycol 17 gm 12/05/18 22:00 12/05/18 21:50 Miralax (For Daily Use) - PO Not Given BID [facility] ASSESSMENT/PLAN: 58 year-old male with a PMH significant for HTN, Stage IV prostate cancer with extensive metastatic involvement on hormone therapy. Admitted for RUE cellulitis secondary to a cat bite requiring IV antibiotics. *Cellulitis RUE-secondary to domestic cat bite- clinically improving -patient is immunosuppressed -continue ertapenem(day #3) and clindamycin (day #3) -hand surgical input appreciated -appears to be local soft tissue infection and reactive cellulitis, no tenosynovitis or deep-space infection; manage with antibiotics -MRI - no evidence of osteo, consistent with cellulitis - afebrile with no leukocytosis - BC no growth - ID following,rec to change to oral Clinda *Diarrhea- likely due to abx - if diarrhea persist - will check stool for C- Diff - started on Probiotics *Hypertension-BP stable -continue metoprolol, amlodipine *Prostate cancer -followed by Dr. Shelbi HINTON Fluids: PO intake adequate Electrolytes: replete as indicated Nutrition: regular diet DVT prophylaxis: subq heparin Dispo: continues to require inpatient care. Full code. Visit type - Emergency Visit Emergency Visit: Yes ED Registration Date: 12/03/18 Care time: The patient presented to the Emergency Department on the above date and was hospitalized for further evaluation of their emergent condition. - New Patient This patient is new to me today: Yes Date on this admission: 12/06/18 - Critical Care Critical Care patient: No
--- NOTE | 2018-12-06 11:11 | PN ---
Progress Note, Physician History of Present Illness: patient stable no new issues hand is becoming much better - Current Medication List Current Medications: Active Medications Acetaminophen (Tylenol -) 650 mg PO Q4H PRN PRN Reason: PAIN LEVEL 6-10 Amlodipine Besylate (Norvasc -) 10 mg PO DAILY [facility] Last Admin: 12/06/18 09:59 Dose: 10 mg Citalopram Hydrobromide (Celexa -) 20 mg PO DAILY [facility] Last Admin: 12/06/18 09:58 Dose: 20 mg Docusate Sodium (Colace -) 300 mg PO HS [facility] Last Admin: 12/05/18 21:49 Dose: Not Given Heparin Sodium (Porcine) (Heparin -) 5,000 unit SQ BID [facility] Last Admin: 12/06/18 09:58 Dose: 5,000 unit Clindamycin Phosphate (Cleocin 300 Mg Premix Ivpb) 300 mg in 50 mls @ 100 mls/ hr IVPB Q6H-IV [facility]; Protocol Last Admin: 12/06/18 09:58 Dose: 100 mls/hr Ertapenem 1 gm/ Sodium (Chloride) 50 mls @ 100 mls/hr IVPB DAILY [facility]; Protocol Last Admin: 12/06/18 09:58 Dose: 100 mls/hr Lactobacillus Acidophilus (Bacid -) 1 tab PO DAILY [facility] Metoprolol Tartrate (Lopressor -) 50 mg PO BID [facility] Last Admin: 12/06/18 09:59 Dose: 50 mg Oxycodone HCl (Roxicodone -) 10 mg PO Q4H PRN PRN Reason: PAIN LEVEL 6-10 Last Admin: 12/06/18 01:04 Dose: 10 mg Polyethylene Glycol (Miralax (For Daily Use) -) 17 gm PO BID [facility] Last Admin: 12/06/18 09:59 Dose: Not Given - Objective Vital Signs: Vital Signs Temperature 97.5 F L 12/06/18 10:00 Pulse Rate 71 12/06/18 10:00 Respiratory Rate 18 12/06/18 10:00 Blood Pressure 127/58 L 12/06/18 10:00 O2 Sat by Pulse Oximetry (%) 95 12/06/18 10:00 Constitutional: Yes: No Distress, Calm Cardiovascular: Yes: Regular Rate and Rhythm Respiratory: Yes: Regular, CTA Bilaterally Gastrointestinal: Yes: Normal Bowel Sounds, Soft Musculoskeletal: Yes: WNL Extremities: Yes: Other Neurological: Yes: Alert, Oriented Psychiatric: Yes: Alert, Oriented Labs: CBC, BMP 12/05/18 07:00 12/05/18 07:00 Assessment/Plan cat bite puncture wounds cellulitis of the rt hand axillary lymphadenopathy streaking plan continue current mgmt patient stable will deescalte by monday to oral rest as per the team
[2018-12-06] MEDS: LACTOBACILLUS ACIDOPHILUS 1 TABLET PO SCH (11:30)
[2018-12-06] MEDS: CLINDAMYCIN HCL 150 MG CAPSULE (FP) PO SCH ×3 (12:00→23:46)
[2018-12-06] MEDS: DOCUSATE SODIUM 100 MG CAPSULE (FP) PO SCH ×2 (21:14→21:46)
[2018-12-07] MEDS: oxyCODONE HCL 5 MG TABLET PO PRN ×5 (05:00→23:53)
[2018-12-07] MEDS: ACETAMINOPHEN 325 MG TABLET (FP) PO PRN ×3 (05:01→23:53)
[2018-12-07] MEDS: CLINDAMYCIN HCL 150 MG CAPSULE (FP) PO SCH ×4 (06:05→23:45)
--- NOTE | 2018-12-07 09:51 | PN ---
Physical Exam: SUBJECTIVE: Patient seen and examined, reports Rt thumb pain improved,reports mild tenderness/ pain with hand movement,no numbness or tingling, chronic back pain, and persistent diarrhea, denies abdominal pain, N/V, cp, sob palpitations. OBJECTIVE: Vital Signs Period Temp Pulse Resp BP Sys/Cordero Pulse Ox Last 24 Hr 97.5 F-98 F 71-80 17-20 127-149/58-75 95-99 GENERAL: The patient is awake, alert, and fully oriented, in no acute distress. HEAD: Normal with no signs of trauma. EYES: PERRL, extraocular movements intact, sclera anicteric, conjunctiva clear. No ptosis. ENT: Ears normal, nares patent, oropharynx clear without exudates, moist mucous membranes. NECK: Trachea midline, full range of motion, supple. LUNGS: Breath sounds equal, clear to auscultation bilaterally, no wheezes, no crackles, no accessory muscle use. HEART: Regular rate and rhythm, S1, S2 without murmur, rub or gallop. ABDOMEN: Soft, nontender, nondistended, normoactive bowel sounds, no guarding, no rebound, no hepatosplenomegaly, no masses. EXTREMITIES: 2+ pulses, warm, well-perfused, no edema, Rt thumb with mild redness, + tenderness. NEUROLOGICAL: Cranial nerves II through XII grossly intact. Normal speech, gait not observed. PSYCH: Normal mood, normal affect. SKIN: Warm, dry, normal turgor, no rashes or lesions noted Active Medications Generic Name Dose Route Start Last Admin Trade Name Freq PRN Reason Stop Dose Admin Acetaminophen 650 mg 12/05/18 16:14 12/07/18 05:01 Tylenol - PO 650 mg Q4H PRN Administration PAIN LEVEL 6-10 Amlodipine Besylate 10 mg 12/04/18 10:00 12/06/18 09:59 Norvasc - PO 10 mg DAILY [facility] Administration Citalopram Hydrobromide 20 mg 12/04/18 10:00 12/06/18 09:58 Celexa - PO 20 mg DAILY [facility] Administration Clindamycin HCl 300 mg 12/06/18 12:00 12/07/18 06:05 Cleocin - PO 300 mg Q6HPO OR[facility] Administration Docusate Sodium 300 mg 12/05/18 22:00 12/06/18 21:46 Colace - PO Not Given HS ORIN Heparin Sodium (Porcine) 5,000 unit 12/04/18 10:00 12/06/18 21:15 Heparin - SQ 5,000 unit BID [facility] Administration Ertapenem 1 gm/ Sodium 50 mls @ 100 mls/hr 12/04/18 14:15 12/06/18 09:58 Chloride IVPB 100 mls/hr DAILY [facility] Administration Protocol Lactobacillus Acidophilus 1 tab 12/06/18 10:00 12/06/18 11:30 Bacid - PO 1 tab DAILY [facility] Administration Metoprolol Tartrate 50 mg 12/04/18 10:00 12/06/18 21:15 Lopressor - PO 50 mg BID [facility] Administration Oxycodone HCl 10 mg 12/05/18 16:14 12/07/18 05:00 Roxicodone - PO 10 mg Q4H PRN Administration PAIN LEVEL 6-10 Polyethylene Glycol 17 gm 12/05/18 22:00 12/06/18 21:45 Miralax (For Daily Use) - PO Not Given BID [facility] ASSESSMENT/PLAN: 58 year-old male with a PMH significant for HTN, Stage IV prostate cancer with extensive metastatic involvement on hormone therapy. Admitted for RUE cellulitis secondary to a cat bite requiring IV antibiotics. *Cellulitis RUE-secondary to domestic cat bite- clinically improving -patient is immunosuppressed - ID following,planning to change IV to oral abx starting on Monday -will continue on Ertapenem(day #4) and oral clindamycin (day #4) -hand surgical input appreciated -appears to be local soft tissue infection and reactive cellulitis, no tenosynovitis or deep-space infection; manage with antibiotics -MRI - no evidence of osteo, consistent with cellulitis - afebrile with no leukocytosis - BC no growth *Diarrhea- likely due to abx, persistent - Colace discontinued - will cont on Probiotics - will monitor *Hypertension-BP stable -continue metoprolol, amlodipine *Prostate cancer -followed by Dr. Shelbi HINTON Fluids: PO intake adequate Electrolytes: replete as indicated Nutrition: regular diet DVT prophylaxis: subq heparin Dispo: continues to require inpatient care. Full code. Visit type - Emergency Visit Emergency Visit: Yes ED Registration Date: 12/03/18 Care time: The patient presented to the Emergency Department on the above date and was hospitalized for further evaluation of their emergent condition. - New Patient This patient is new to me today: No - Critical Care Critical Care patient: No
[2018-12-07] MEDS ORDERED: ERTAPENEM SODIUM 1 GM VIAL ONE (09:53)
[2018-12-07] MEDS ORDERED: SODIUM CHLORIDE 50 ML IVPB ONE (09:53)
[2018-12-07] MEDS: amLODIPine BESYLATE 10 MG TABLET (FP) PO SCH (10:09)
[2018-12-07] MEDS: LACTOBACILLUS ACIDOPHILUS 1 TABLET PO SCH (10:09)
[2018-12-07] MEDS: HEPARIN NA (PORCINE) 5,000 UNITS/ML 1ML VIAL SQ SCH ×2 (10:09→21:12)
[2018-12-07] MEDS: METOPROLOL TARTRATE 50 MG TABLET (FP) PO SCH ×2 (10:09→21:11)
[2018-12-07] MEDS: CITALOPRAM HYDROBROMIDE 20 MG TABLET (FP) PO SCH (10:09)
[2018-12-07] MEDS: ERTAPENEM SODIUM 1 GM in SODIUM CHLORIDE 50 ML IVPB SCH (10:10)
[2018-12-07] MEDS: POLYETHYLENE GLYCOL 3350 119 GM BTL PO SCH ×2 (10:10→23:46)
--- NOTE | 2018-12-07 14:14 | PN ---
Progress Note, Physician History of Present Illness: swelling has improved redness has decreased - Current Medication List Current Medications: Active Medications Acetaminophen (Tylenol -) 650 mg PO Q4H PRN PRN Reason: PAIN LEVEL 6-10 Last Admin: 12/07/18 05:01 Dose: 650 mg Amlodipine Besylate (Norvasc -) 10 mg PO DAILY [facility] Last Admin: 12/07/18 10:09 Dose: 10 mg Citalopram Hydrobromide (Celexa -) 20 mg PO DAILY [facility] Last Admin: 12/07/18 10:09 Dose: 20 mg Clindamycin HCl (Cleocin -) 300 mg PO Q6HPO [facility] Last Admin: 12/07/18 12:35 Dose: 300 mg Heparin Sodium (Porcine) (Heparin -) 5,000 unit SQ BID [facility] Last Admin: 12/07/18 10:09 Dose: 5,000 unit Ertapenem 1 gm/ Sodium (Chloride) 50 mls @ 100 mls/hr IVPB DAILY [facility]; Protocol Last Admin: 12/07/18 10:10 Dose: 100 mls/hr Lactobacillus Acidophilus (Bacid -) 1 tab PO DAILY [facility] Last Admin: 12/07/18 10:09 Dose: 1 tab Metoprolol Tartrate (Lopressor -) 50 mg PO BID [facility] Last Admin: 12/07/18 10:09 Dose: 50 mg Oxycodone HCl (Roxicodone -) 10 mg PO Q4H PRN PRN Reason: PAIN LEVEL 6-10 Last Admin: 12/07/18 12:36 Dose: 10 mg Polyethylene Glycol (Miralax (For Daily Use) -) 17 gm PO BID [facility] Last Admin: 12/07/18 10:10 Dose: Not Given - Objective Vital Signs: Vital Signs Temperature 97.8 F 12/07/18 14:11 Pulse Rate 68 12/07/18 14:11 Respiratory Rate 18 12/07/18 14:11 Blood Pressure 121/69 12/07/18 14:11 O2 Sat by Pulse Oximetry (%) 94 L 12/07/18 14:11 Constitutional: Yes: No Distress, Calm Cardiovascular: Yes: Regular Rate and Rhythm Respiratory: Yes: Regular, CTA Bilaterally Gastrointestinal: Yes: Normal Bowel Sounds, Soft Musculoskeletal: Yes: Other Extremities: Yes: Erythema (improved) Neurological: Yes: Alert, Oriented Psychiatric: Yes: Alert, Oriented Labs: CBC, BMP 12/05/18 07:00 12/05/18 07:00 Assessment/Plan cat bite puncture wounds cellulitis of the rt hand axillary lymphadenopathy streaking plan continue current mgmt patient stable will change to oral tomorrow rest as per the team
[2018-12-08] MEDS: CLINDAMYCIN HCL 150 MG CAPSULE (FP) PO SCH (05:41)
[2018-12-08] MEDS: oxyCODONE HCL 5 MG TABLET PO PRN ×2 (05:42→09:28)
[2018-12-08] MEDS: ACETAMINOPHEN 325 MG TABLET (FP) PO PRN (05:43)
[2018-12-08 06:33] VITALS: BP 113/55; PULSE 86; TEMP 97.8
[2018-12-08] MEDS: POLYETHYLENE GLYCOL 3350 119 GM BTL PO SCH (09:14)
[2018-12-08] MEDS ORDERED: SODIUM CHLORIDE 50 ML IVPB ONE (09:22)
[2018-12-08] MEDS ORDERED: ERTAPENEM SODIUM 1 GM VIAL ONE (09:22)
[2018-12-08] MEDS: HEPARIN NA (PORCINE) 5,000 UNITS/ML 1ML VIAL SQ SCH (09:27)
[2018-12-08] MEDS: ERTAPENEM SODIUM 1 GM in SODIUM CHLORIDE 50 ML IVPB SCH (09:27)
[2018-12-08] MEDS: CITALOPRAM HYDROBROMIDE 20 MG TABLET (FP) PO SCH (09:27)
[2018-12-08] MEDS: amLODIPine BESYLATE 10 MG TABLET (FP) PO SCH (09:27)
[2018-12-08] MEDS: METOPROLOL TARTRATE 50 MG TABLET (FP) PO SCH (09:27)
[2018-12-08] MEDS: LACTOBACILLUS ACIDOPHILUS 1 TABLET PO SCH (09:54)
--- NOTE | 2018-12-08 10:06 | DS ---
Physical Exam: SUBJECTIVE: Patient seen and examined OBJECTIVE: Vital Signs Period Temp Pulse Resp BP Sys/Cordero Pulse Ox Last 24 Hr 97.8 F-98.6 F 68-86 18-19 111-121/55-69 94-98 PHYSICAL EXAM GENERAL: The patient is awake, alert, and fully oriented, in no acute distress. HEAD: Normal with no signs of trauma. EYES: PERRL, extraocular movements intact, sclera anicteric, conjunctiva clear. ENT: Ears normal, nares patent, oropharynx clear without exudates, moist mucous membranes. NECK: Trachea midline, full range of motion, supple. LUNGS: Breath sounds equal, clear to auscultation bilaterally, no wheezes, no crackles, no accessory muscle use. HEART: Regular rate and rhythm, S1, S2 without murmur, rub or gallop. ABDOMEN: Soft, nontender, nondistended, normoactive bowel sounds, no guarding, no rebound, no hepatosplenomegaly, no masses. EXTREMITIES: 2+ pulses, warm, well-perfused, no edema. NEUROLOGICAL: Cranial nerves II through XII grossly intact. Normal speech, gait not observed. PSYCH: Normal mood, normal affect. SKIN: Warm, dry, normal turgor, no rashes or lesions noted. LABS CBCD WBC 7.3 K/mm3 (4.0-10.8) 12/05/18 07:00 RBC 4.36 M/mm3 (4.00-5.60) 12/05/18 07:00 Hgb 12.8 GM/dl (11.7-16.9) 12/05/18 07:00 Hct 38.3 % (35.4-49) 12/05/18 07:00 MCV 87.7 fl (80-96) 12/05/18 07:00 MCHC 33.4 g/dl (32.0-35.9) 12/05/18 07:00 RDW 12.3 % (11.9-15.9) 12/05/18 07:00 Plt Count 324 K/MM3 (134-434) 12/05/18 07:00 MPV 7.4 fl (7.5-11.1) L 12/05/18 07:00 CMP Sodium 138 mmol/L (136-145) 12/05/18 07:00 Potassium 3.7 mmol/L (3.5-5.1) 12/05/18 07:00 Chloride 107 mmol/L (98-107) 12/05/18 07:00 Carbon Dioxide 24 mmol/L (21-32) 12/05/18 07:00 Anion Gap 7 MMOL/L (8-16) L 12/05/18 07:00 BUN 12 mg/dl (7-18) 12/05/18 07:00 Creatinine 0.6 mg/dl (0.55-1.3) 12/05/18 07:00 Creat Clearance w eGFR > 60 (>60) 12/05/18 07:00 Calcium 8.4 mg/dl (8.5-10) L 12/05/18 07:00 Total Bilirubin 0.4 mg/dl (0.2-1) 12/05/18 07:00 AST 21 U/L (15-37) 12/05/18 07:00 ALT 23 U/L (13-61) 12/05/18 07:00 Alkaline Phosphatase 44 U/L (45-117) L 12/05/18 07:00 Total Protein 6.0 g/dl (6.4-8.2) L 12/05/18 07:00 Albumin 3.5 g/dl (3.4-5.0) 12/05/18 07:00 HOSPITAL COURSE: Date of Admission:12/03/18 Date of Discharge: 12/08/18 Pre hospital course This is a 58 y/o man with a past medical history of Stage 4 Metastatic Prostate Ca (dx 09/2017, on Hormone injections), Hypertension, DJD, BPH. Who presents to the ED with pain redness and swelling to R- thumb/hand which has now has spread to his wrist and upper arm. Patient reports that while attempting to check his cat's paw it bite him on the right thumb yesterday. He reports cleaning the wound, attempting to express it with only bloody drainage no pus. Patient reports that today over a period of 8 hours the redness and swelling has spread to his wrist and upper arm. He reports being able to make a fist, and has sensation to his hand and fingers. Patient reports taking Percocet which he is on for the Cancer pain. Patient denies fever, chills, cough, SOB, CP, AP, N/V/D , constipation ER course (1) WBC 10.9 (2) R- Hand Xray- no gross bone or soft tissue abnormality 58 year-old male with a PMH significant for HTN, Stage IV prostate cancer with extensive metastatic involvement on hormone therapy. Admitted for RUE cellulitis secondary to a cat bite requiring IV antibiotics. Subsequent hospital course Cellulitis RUE --secondary to domestic cat bite, patient immunocompromised on hormone immunotherapy for prostate cancer --treated with ertapenem and IV clindamycin while inpatient; discharged on PO clinda for an additional 8 days of treatment --seen and evaluated by hand surgeon, local soft tissue infection and reactive cellulitis, no tenosynovitis or deep-space infection --MRI negative for osteo Hypertension --BP stable --continued metoprolol, amlodipine Prostate cancer --followed by Dr. Shelbi Moreau to complete discharge: 35 Discharge Summary Reason For Visit: CAT BITE Current Active Problems BPH (benign prostatic hyperplasia) (Acute) Cat bite (Acute) Cellulitis and abscess of hand (Acute) HTN (hypertension) (Acute) Lymphangitis (Acute) Condition: Improved - Instructions Diet, Activity, Other Instructions: An prescription has been sent to your pharmacy for clindamycin which is an antibiotic. Take this medication as directed and be sure to finish all the medication. You should follow up with your primary care provider within 72 hours of your discharge. Return to the emergency department for any new or worsening symptoms. Referrals: Ruba Justice MD [Primary Care Provider] - Disposition: HOME - Home Medications Comprehensive Discharge Medication List: Ambulatory Orders Amlodipine Besylate [Norvasc -] 10 mg PO DAILY 05/28/17 Metoprolol Tartrate [Lopressor] 50 mg PO BID 05/28/17 Citalopram Hydrobromide [Celexa -] 20 mg PO DAILY 12/03/18 Oxycodone HCl/Acetaminophen [Percocet 10-325 mg Tablet] 1 each PO Q4HWA This patient is new to me today: No Emergency Visit: Yes ED Registration Date: 12/03/18 Care time: The patient presented to the Emergency Department on the above date and was hospitalized for further evaluation of their emergent condition. Critical Care patient: No - Discharge Referral Referred to [facility] No
--- NOTE | 2018-12-08 11:19 | PN ---
Progress Note, Physician History of Present Illness: patient stable doing well no new issues erythema has resolved - Current Medication List Current Medications: Active Medications Acetaminophen (Tylenol -) 650 mg PO Q4H PRN PRN Reason: PAIN LEVEL 6-10 Last Admin: 12/08/18 05:43 Dose: 650 mg Amlodipine Besylate (Norvasc -) 10 mg PO DAILY [facility] Last Admin: 12/08/18 09:27 Dose: 10 mg Citalopram Hydrobromide (Celexa -) 20 mg PO DAILY [facility] Last Admin: 12/08/18 09:27 Dose: 20 mg Clindamycin HCl (Cleocin -) 300 mg PO Q6HPO [facility] Last Admin: 12/08/18 05:41 Dose: 300 mg Heparin Sodium (Porcine) (Heparin -) 5,000 unit SQ BID [facility] Last Admin: 12/08/18 09:27 Dose: 5,000 unit Ertapenem 1 gm/ Sodium (Chloride) 50 mls @ 100 mls/hr IVPB DAILY [facility]; Protocol Last Admin: 12/08/18 09:27 Dose: 100 mls/hr Lactobacillus Acidophilus (Bacid -) 1 tab PO DAILY [facility] Last Admin: 12/08/18 09:54 Dose: 1 tab Metoprolol Tartrate (Lopressor -) 50 mg PO BID [facility] Last Admin: 12/08/18 09:27 Dose: 50 mg Oxycodone HCl (Roxicodone -) 10 mg PO Q4H PRN PRN Reason: PAIN LEVEL 6-10 Last Admin: 12/08/18 09:28 Dose: 10 mg Polyethylene Glycol (Miralax (For Daily Use) -) 17 gm PO BID [facility] Last Admin: 12/08/18 09:14 Dose: Not Given - Objective Vital Signs: Vital Signs Temperature 97.8 F 12/08/18 06:32 Pulse Rate 86 12/08/18 06:32 Respiratory Rate 18 12/08/18 06:32 Blood Pressure 113/55 L 12/08/18 06:32 O2 Sat by Pulse Oximetry (%) 98 12/08/18 06:32 Constitutional: Yes: No Distress, Calm Cardiovascular: Yes: Regular Rate and Rhythm Respiratory: Yes: Regular, CTA Bilaterally Gastrointestinal: Yes: Normal Bowel Sounds, Soft Musculoskeletal: Yes: WNL Extremities: Yes: Other Neurological: Yes: Alert, Oriented Psychiatric: Yes: Alert, Oriented Labs: CBC, BMP 12/05/18 07:00 12/05/18 07:00 Assessment/Plan cat bite puncture wounds cellulitis of the rt hand axillary lymphadenopathy streaking plan patient can be send home on clinda 300 mg q8 hrly po for another 8 days wound care rest as per the team
== END 2018-12-08 11:30 | disposition home or self-care (01) | DRG 383 ==
LOC: FER 20:34 → FM/S 22:11 → UNDOADMIN 23:05
PROVIDERS: ADMIT Internal Medicine; ATTEND Nurse Practitioner Acute Care
DX: L03.113 Cellulitis of right upper limb (principal); W55.01XA Bitten by cat, initial encounter; Z87.891 Personal history of nicotine dependence; N40.0 Benign prostatic hyperplasia without lower urinary tract symptoms; R59.0 Localized enlarged lymph nodes; I89.1 Lymphangitis; I10 Essential (primary) hypertension; C61 Malignant neoplasm of prostate; L02.511 Cutaneous abscess of right hand; R19.7 Diarrhea, unspecified; Y93.9 Activity, unspecified; Y92.89 Other specified places as the place of occurrence of the external cause; Y99.9 Unspecified external cause status
CPT/HCPCS: 36415; 71046-TC-FY; 73130-TC-RT-FY; 73218-TC-RT; 80048; 80053; 83605; 83735; 85025; 87040; 90670; 90715; 93005; 99284-25; J1644

== ENCOUNTER 2019-12-11 12:56 | Inpatient (IN) | payer OTHER ==
[2019-12-11 13:17] VITALS: BMI 31.0
[2019-12-11] MEDS ORDERED: SODIUM CHLORIDE 0.9% 1000 ML INFUS.BAG IV ONE ×2 (14:02→14:42)
--- NOTE | 2019-12-11 14:07 | PDOC ---
History of Present Illness - General Chief Complaint: Pain Stated Complaint: P/S I THINK I HAVE A HERNIA LLQ PAIN History Source: Patient Exam Limitations: No Limitations - History of Present Illness Initial Comments: 12/11/19 14:02 59 yo male h/o metastatic prostate cancer here with c/o left groin pain , after straining to go to the bathroom 2 days ago. pt states he noted a bulge in his groin at that time, but since pain has become constant. now today noted redness to overlying skin in groin and testicle, in addition to erythema to penile shaft. denies n/v no f/c . no other complaints. is on pain medication for his prostate ca ( fentanyl, morphine, and percocet for break through which he took earlier today). no urinary complaints. urologist dr yates. Past History - Past Medical History Allergies/Adverse Reactions: Allergies Allergy/AdvReac Type Severity Reaction Status Date / Time codeine Allergy Intermediate Verified 12/11/19 13:01 Penicillins Allergy Intermediate Hives Verified 12/11/19 13:00 cat pelt standardized Allergy Verified 12/11/19 13:00 allergenic ex [Cat Pelt Std Extract] ibuprofen AdvReac Severe Vomiting Verified 12/11/19 13:00 Home Medications: Ambulatory Orders Amlodipine Besylate 5 mg PO DAILY 12/11/19 Citalopram Hydrobromide [Citalopram HBr] 20 mg PO DAILY 12/11/19 Enzalutamide [Xtandi] 160 mg PO DAILY 12/11/19 Famotidine [Pepcid -] 40 mg PO DAILY 12/11/19 Furosemide [Lasix] 20 mg PO DAILY 12/11/19 Gabapentin 300 mg PO TID 12/11/19 Loratadine [Claritin] 10 mg PO DAILY 12/11/19 Metoprolol Succinate 50 mg PO DAILY 12/11/19 Morphine Sulfate [Arymo ER] 60 mg PO TID 12/11/19 Nabumetone 750 mg PO BID 12/11/19 Oxycodone HCl/Acetaminophen [Percocet 10-325 mg Tablet] 1 each PO Q4HWA Anemia: Yes Asthma: No Cancer: Yes (PROSTATE) Cardiac Disorders: Yes (NONSUSTAINED VT) CVA: No COPD: No CHF: No Dementia: No Diabetes: No GI Disorders: No Disorders: Yes (BPH, HYDRONEPHROSIS, URINARY RETETNION, OBSTRUCTIVE UROPATHY) HTN: Yes Hypercholesterolemia: No Liver Disease: No Seizures: No Thyroid Disease: No Other medical history: back problem, hermangioma - Surgical History Abdominal Surgery: No Appendectomy: No Cardiac Surgery: No Cholecystectomy: No Lung Surgery: No Neurologic Surgery: No Orthopedic Surgery: Yes (01/2012) - Psycho Social/Smoking Cessation Hx Smoking History: Former smoker Have you smoked in the past 12 months: No Number of Cigarettes Smoked Daily: 0 If you are a former smoker, when did you quit?: 11 years Information on smoking cessation initiated: No 'Breaking Loose' booklet given: 01/26/14 Hx Alcohol Use: No Drug/Substance Use Hx: No Substance Use Type: None Hx Substance Use Treatment: No Review of Systems - Review of Systems Constitutional: No: Chills, Diaphoresis HEENTM: No: Eye Pain Respiratory: No: Cough, Orthopnea, Shortness of Breath Cardiac (ROS): No: Chest Pain ABD/GI: No: Nausea, Vomiting : Yes: Testicular Swelling. No: Burning, Dysuria Integumentary: No: Bruising All Other Systems: Reviewed and Negative *Physical Exam - Vital Signs Last Vital Signs Temp Pulse Resp BP Pulse Ox 97.9 F 75 16 129/83 97 12/11/19 12:58 12/11/19 12:58 12/11/19 12:58 12/11/19 12:58 12/11/19 12:58 - Physical Exam 12/11/19 14:05 awake alert lungs clear bilat heart rrr nomrg abd soft left groin with palp inguinal hernia, nonreducible. overlying skin erythema to inguinal region left testicle and penile shaft. llq abd ttp. no rebound no guarding. ED Treatment Course - LABORATORY CBC & Chemistry Diagram: 12/11/19 14:10 12/11/19 14:10 Medical Decision Making - Medical Decision Making 12/11/19 14:07 59 yo h/o htn, metastatic prostate ca, here with inguinal hernia, incarcerated. plan surgery consult. will d/w urologist dr yates,, pt to be NPO basic labs iv hydration. 12/11/19 15:00 d/w pt urologist dr yates recommend consult gen surgery. dr sukh consulted, recommend oral contrast for cT. added. pt took all meds this am. pcp. Gerard Guadarrama 12/11/19 15:22 12/11/19 16:28 d/w PACU, pt to be transfered from ER at [place] to PACU for OR this evening wt Dr Garcia. Discharge - Discharge Information Problems reviewed: Yes Clinical Impression/Diagnosis: Inguinal hernia Condition: Stable - Admission Yes - Follow up/Referral - Patient Discharge Instructions - Post Discharge Activity
[2019-12-11] MEDS ORDERED: SODIUM CHLORIDE 1,000 ML IV SCH (14:45)
[2019-12-11 14:50] LABS: BASO % 0.5 % (0-2.0); EOS % 2.3 % (0-4.5); HEMATOCRIT 42.9 % (35.4-49); HEMOGLOBIN 14.4 GM/dl (11.7-16.9); LYMPH % 26.3 % (8-40); MCH 29.4 pg (25.7-33.7); MCHC 33.5 g/dl (32.0-35.9); MEAN CELL VOLUME 87.9 fl (80-96); MEAN PLT VOLUME 6.8 fl (7.5-11.1); MONO % 14.6 % (3.8-10.2); NEUT % 56.3 % (42.8-82.8); PLATELET COUNT 320 K/MM3 (134-434); RBC 4.88 M/mm3 (4.00-5.60); RDW 13.2 % (11.9-15.9); WHITE BLOOD COUNT 8.3 K/mm3 (4.0-10.8)
[2019-12-11 14:59] LABS: INR 1.22 (0.82-1.09); PROTHROMBIN TIME (PATIENT) 13.6 SEC (10.2-13.0)
[2019-12-11 15:03] LABS: BILIRUBIN,TOTAL 0.8 mg/dl (0.2-1); CALCIUM 8.9 mg/dl (8.5-10); CREATININE 0.7 mg/dl (0.55-1.3); TOT PROT 6.8 g/dl (6.4-8.2)
[2019-12-11] MEDS ORDERED: morphine CARPU-JECT 4 MG/1 ML DISP.SYRIN IVPUSH ONE (15:44)
[2019-12-11] MEDS ORDERED: morphine SULFATE 4 MG/ML VIAL ONE (15:47)
--- NOTE | 2019-12-11 16:38 | CONSULT ---
Consult Consult Specialty:: General Surgery Referred by:: Joi Ku Reason for Consultation:: incarcerated left inguinal hernia - History of Present Illness Chief Complaint: left groin pain/bulge, pink over area and onto penile shaft History of Present Illness: 59yo M with HTN, metastatic prostate CA to bone s/p TURP and XRT on hormonal therapy, presented with left groin pain and bulge started on Monday. He had lifted a 50lb bag of laundry, and also strains at stool secondary to constipation from chronic opioid therapy for CA-related pain. He thought he pulled a groin muscle, and had to help his sister get to her colonoscopy yesterday, so did not seek attention initially. Yesterday, he noticed the skin over the area getting pink, and today, his penis also got pink and seemed a bit swollen. In ER, he is afebrile, with normal wbc, and is noted to have an unreducible left inguinal hernia. Left testicle is also painful. He has not had N/V, and had coffee with milk around 8-10am this morning as last po. Took all his am meds except for nabumetone (strong NSAID), which he always takes with food. Surgery was asked to assess. He is seen and examined in ER. Gives the above history. He reports limited treatment options left for his prostate CA - "I am dying." They can only do 3 more cycles of radiation, and he is due for a full body scan. They are only targeting the worst spots now, as he has mets to spine, ribs , pelvis, and other skeletal sites. - History Source History Provided By: Patient Limitations to Obtaining History: No Limitations - Past Medical History Cardio/Vascular: Yes: HTN, Other (non sust VT) Gastrointestinal: Yes: GI Bleed, Hemorrhoids Renal/: Yes: BPH, Cancer (metastatic prostate to skeleton), UTI Heme/Onc: Yes: Cancer (prostate - hormonal therapy, s/p radiation therapy) Psych: Yes: Depression Musculoskeletal: Yes: Chronic low back pain, Other (spinal hemangiomas) - Past Surgical History Past Surgical History: Yes: Colonoscopy, TURP, Tonsillectomy Additional Surgical History: L4-5 spinal fusion, hemorrhoid surgery - Alcohol/Substance Use Hx Alcohol Use: No History of Substance Use: reports: None - Smoking History Smoking history: Former smoker Have you smoked in the past 12 months: No If you are a former smoker, when did you quit?: 11 years - Social History ADL: Independent Home Medications - Allergies Allergies/Adverse Reactions: Allergies Allergy/AdvReac Type Severity Reaction Status Date / Time codeine Allergy Intermediate Verified 12/11/19 13:01 Penicillins Allergy Intermediate Hives Verified 12/11/19 13:00 cat pelt standardized Allergy Verified 12/11/19 13:00 allergenic ex [Cat Pelt Std Extract] ibuprofen AdvReac Severe Vomiting Verified 12/11/19 13:00 - Home Medications Home Medications: Ambulatory Orders Amlodipine Besylate 5 mg PO DAILY 12/11/19 Citalopram Hydrobromide [Citalopram HBr] 20 mg PO DAILY 12/11/19 Enzalutamide [Xtandi] 160 mg PO DAILY 12/11/19 Famotidine [Pepcid -] 40 mg PO DAILY 12/11/19 Furosemide [Lasix] 20 mg PO DAILY 12/11/19 Gabapentin 300 mg PO TID 12/11/19 Loratadine [Claritin] 10 mg PO DAILY 12/11/19 Metoprolol Succinate 50 mg PO DAILY 12/11/19 Morphine Sulfate [Arymo ER] 60 mg PO TID 12/11/19 Nabumetone 750 mg PO BID 12/11/19 Oxycodone HCl/Acetaminophen [Percocet 10-325 mg Tablet] 1 each PO Q4HWA Home Medications (free text): takes nabumetone more once a day than twice, always with food Family Medical History Family History: Unremarkable (noncontributory) Review of Systems - Review of Systems Constitutional: denies: Chills, Fever, Loss of Appetite Eyes: reports: Other (glasses for driving). denies: Recent Change in Vision HENT: denies: Difficult Swallowing, Throat Pain Neck: denies: Swollen Glands, Tenderness Cardiovascular: denies: Chest Pain, Palpitations Respiratory: denies: Cough, SOB Gastrointestinal: reports: Constipation. denies: Abdominal Pain, Diarrhea, Nausea, Vomiting Genitourinary: reports: Incontinence (occasionally), Pain (left groin with hpi) , Testicular Pain (left side), Urgency, Other (difficulty starting stream). denies: Burning Musculoskeletal: reports: Back Pain, Joint Pain Integumentary: reports: Change in Color, Erythema (left groin, left scrotum, penis). denies: Rash Neurological: denies: Dizziness, Headache Psychiatric: reports: Depression. denies: Anxiety Physical Exam Vital Signs: Vital Signs Temperature 97.9 F 12/11/19 12:58 Pulse Rate 85 12/11/19 16:25 Respiratory Rate 16 12/11/19 16:25 Blood Pressure 154/71 12/11/19 16:25 O2 Sat by Pulse Oximetry (%) 96 12/11/19 16:25 Constitutional: Yes: Well Nourished, No Distress, Calm Eyes: Yes: Conjunctiva Clear, EOM Intact HENT: Yes: Atraumatic, Normocephalic Neck: Yes: Supple, Trachea Midline Cardiovascular: Yes: Regular Rate and Rhythm Respiratory: Yes: Regular, CTA Bilaterally Gastrointestinal: Yes: Normal Bowel Sounds, Soft, Abdomen, Obese, Hernia (left inguinal - with overlying pink area, tender, reduction not attempted), Tenderness (over left groin, left testicle) ...Rectal Exam: Yes: Deferred Renal/: Yes: Other (left testis tender, both palpable in scrotum, penile shaft erythematous, left scrotum pink, see above). No: CVA Tenderness - Left, CVA Tenderness - Right Musculoskeletal: No: Joint Stiffness, Joint Swelling Extremities: No: Cool, Cyanosis Edema: No Peripheral Pulses WNL: Yes Integumentary: Yes: Erythema (see above). No: Jaundice, Rash Neurological: Yes: Alert, Oriented Psychiatric: Yes: Alert, Oriented Labs: CBC, BMP 12/11/19 14:10 12/11/19 14:10 CMP Sodium 136 mmol/L (136-145) 12/11/19 14:10 Potassium 4.0 mmol/L (3.5-5.1) 12/11/19 14:10 Chloride 103 mmol/L (98-107) 12/11/19 14:10 Carbon Dioxide 27 mmol/L (21-32) 12/11/19 14:10 Anion Gap 6 MMOL/L (8-16) L 12/11/19 14:10 BUN 8.0 mg/dl (7-18) 12/11/19 14:10 Creatinine 0.7 mg/dl (0.55-1.3) 12/11/19 14:10 Est GFR (CKD-EPI)AfAm 121.41 12/11/19 14:10 Est GFR (CKD-EPI)NonAf 104.76 12/11/19 14:10 Random Glucose 104 mg/dl (74-106) 12/11/19 14:10 Lactic Acid 1.0 mmol/L (0.4-2.0) 12/11/19 14:10 Calcium 8.9 mg/dl (8.5-10) 12/11/19 14:10 Total Bilirubin 0.8 mg/dl (0.2-1) 12/11/19 14:10 AST 20 U/L (15-37) 12/11/19 14:10 ALT 20 U/L (13-61) 12/11/19 14:10 Alkaline Phosphatase 58 U/L (45-117) 12/11/19 14:10 Total Protein 6.8 g/dl (6.4-8.2) 12/11/19 14:10 Albumin 4.0 g/dl (3.4-5.0) 12/11/19 14:10 INR, PTT INR 1.22 (0.82-1.09) 12/11/19 14:05 Urine Test Results Urine Color Yellow 12/11/19 14:27 Urine Appearance Clear 12/11/19 14:27 Urine pH 6.0 (4.5-8) 12/11/19 14:27 Urine Protein Negative (NEGATIVE) 12/11/19 14:27 Urine Glucose (UA) Negative (NEGATIVE) 12/11/19 14:27 Urine Ketones Negative (NEGATIVE) 12/11/19 14:27 Urine Blood Negative (NEGATIVE) 12/11/19 14:27 Urine Nitrite Negative (NEGATIVE) 12/11/19 14:27 Urine Bilirubin Negative (NEGATIVE) 12/11/19 14:27 Ur Leukocyte Esterase Negative (NEGATIVE) 12/11/19 14:27 Imaging - Results Cat Scan: Pending Problem List - Problems (1) Incarcerated left inguinal hernia Assessment/Plan: CT pending to assess for fat vs intestine in hernia, ?obstruction, SB vs LB admitted to medicine transfer to [facility] for OR tonight periop antibiotics IV fluids, NPO until postop except meds continue home meds except Lasix and nabumetone (NSAID) for now will need pain medication for acute pain over/above baseline opioid needs bowel regimen to combat constipation Discussed with patient risks, benefits and alternatives of left incarcerated inguinal hernia repair with possible mesh and possible bowel resection, including but not limited to bleeding, infection, injury to adjacent structures , intestinal leak or injury, recurrent/incisional hernia, testicular loss; alternatives include delayed or no surgery - risks of this include ischemia/ necrosis of incarcerated structure(s), possible intestinal perforation, sepsis, . Patient agreeable to proceed with operation - will take to OR for above. Informed consent signed for same. Code(s): K40.30 - UNIL INGUINAL HERNIA, W OBST, W/O GANGR, NOT SPCF RECUR (2) Left groin pain Code(s): R10.32 - LEFT LOWER QUADRANT PAIN (3) Constipation due to opioid therapy Code(s): K59.03 - DRUG INDUCED CONSTIPATION; T40.2X5A - ADVERSE EFFECT OF OTHER OPIOIDS, INITIAL ENCOUNTER (4) Prostate cancer metastatic to bone Code(s): C61 - MALIGNANT NEOPLASM OF PROSTATE; C79.51 - SECONDARY MALIGNANT NEOPLASM OF BONE (5) Chronic pain due to malignant neoplastic disease Code(s): G89.3 - NEOPLASM RELATED PAIN (ACUTE) (CHRONIC) (6) HTN (hypertension) Code(s): I10 - ESSENTIAL (PRIMARY) HYPERTENSION Qualifiers: Hypertension type: essential hypertension Qualified Code(s): I10 - Essential (primary) hypertension
[2019-12-11] MEDS ORDERED: PROPOFOL 20 ML ONE ×2 (17:45)
[2019-12-11] MEDS ORDERED: MIDAZOLAM HCL 2 MG/2 ML SINGLE DOSE VIAL ONE (17:45)
[2019-12-11] MEDS ORDERED: ROCURONIUM BROMIDE 50 MG/5 ML SYRINGE ONE (17:47)
[2019-12-11] MEDS ORDERED: ceFAZolin SODIUM 1 GM VIAL IVPB ONE (18:13)
[2019-12-11] MEDS ORDERED: BENZOIN/ALOE VERA/STORAX/TOLU 58 ML BOTTLE ONE (18:44)
[2019-12-11] MEDS ORDERED: NEOSTIGMINE METHYLSULFATE 0.5 MG/ML - 10 ML MDV ONE (20:22)
[2019-12-11] MEDS ORDERED: LACTATED RINGERS SOLUTION 1,000 ML IV SCH ×2 (20:30→20:50)
[2019-12-11] MEDS ORDERED: HYDROmorphone HCl 2 MG/ML VIAL ONE (20:40)
[2019-12-11] MEDS: HYDROmorphone HCL CARPU-JECT 2 MG/1 ML DISP.SYRIN IVPUSH PRN ×2 (20:42→20:52)
[2019-12-11] MEDS ORDERED: traMADol HCL 50 MG TABLET PO PRN ×2 (20:42→21:14)
[2019-12-11] MEDS ORDERED: morphine CARPU-JECT 4 MG/1 ML DISP.SYRIN IVPUSH PRN (20:49)
--- NOTE | 2019-12-11 20:57 | OP ---
Operative Note - Note: Operative Date: 12/11/19 Pre-Operative Diagnosis: incarcerated left inguinal hernia Operation: incarcerated left inguinal hernia repair with mesh Findings: ischemic sigmoid epiploic fat incarcerated in left inguinal indirect hernia, excised and sent to pathology; sac densely adherent to vas/portion of cord structures - carefully and cord preserved; sac divided - distal left in situ, proximal ligated and portion amputated and sent to pathology; Bard 2x4" flat mesh used to repair inguinal floor; testicles in scrotum at conclusion of procedure Implants: Bard 2x4" flat mesh Post-Operative Diagnosis: Same as Pre-op Surgeon: Griffin Garcia Brush Clearer Surveying: Jay Brooke Anesthesiologist/INFORMATION CLERK [employer]: Debby Corral (neelima/Lew) Anesthesia: General Specimens Removed: portion of hernia sac and contents Estimated Blood Loss (mls): 15 Drains & Tubes with Location: Joshi removed at end of case Drains, Volume Out (mls): 700 (UOP) Fluid Volume Replaced (mls): 2,000 (crystalloid) Operative Report Dictated: Yes
[2019-12-11] MEDS ORDERED: KETOROLAC TROMETHAMINE 30 MG/1 ML VIAL IVPUSH PRN (21:01)
[2019-12-11] MEDS ORDERED: morphine SULFATE 4 MG/ML VIAL IVPUSH PRN (21:14)
[2019-12-11] MEDS ORDERED: MORPHINE SULFATE 60 MG PO SCH ×2 (22:00)
[2019-12-11] MEDS ORDERED: DOCUSATE SODIUM 100 MG CAPSULE (FP) PO SCH (22:00)
--- NOTE | 2019-12-11 22:40 | SURG ---
Surgery Machine Stuffer Note Machine Stuffer: Jay Brooke PA-C Date of Service: 12/11/19 Diagnosis: incarcerated left inguinal hernia Procedure: incarcerated left inguinal hernia repair with mesh I was present for the entirety of the operative procedure. For further detail, please refer to operative report. Visit type - Case Type Case Type: ED Admission - Emergency Emergency Visit: Yes ED Registration Date: 12/11/19 Care time: The patient presented to the Emergency Department on the above date and was hospitalized for further evaluation of their emergent condition. - New patient This patient is new to me today: Yes Date on this admission: 12/11/19
[2019-12-11] MEDS: LACTATED RINGERS SOLUTION 1,000 ML IV SCH (23:32)
[2019-12-11] MEDS: morphine SO4 SUSTAINED ACTING 30 MG TABLET.SA PO SCH (23:32)
[2019-12-11] MEDS: DOCUSATE SODIUM 100 MG CAPSULE (FP) PO SCH (23:32)
[2019-12-11] MEDS: oxyCODONE HCL 5 MG TABLET PO SCH (23:33)
[2019-12-11] MEDS: ACETAMINOPHEN 325 MG TABLET (FP) PO SCH (23:33)
[2019-12-12] MEDS ORDERED: KETOROLAC TROMETHAMINE 30 MG/1 ML VIAL IVPUSH PRN (03:00)
[2019-12-12] MEDS: LACTATED RINGERS SOLUTION 1,000 ML IV SCH (03:00)
[2019-12-12] MEDS: GABAPENTIN 300 MG CAPSULE PO SCH ×3 (05:56→22:10)
[2019-12-12] MEDS: morphine SO4 SUSTAINED ACTING 30 MG TABLET.SA PO SCH ×3 (05:56→22:09)
[2019-12-12] MEDS: oxyCODONE HCL 5 MG TABLET PO SCH ×5 (05:57→22:10)
[2019-12-12] MEDS: DOCUSATE SODIUM 100 MG CAPSULE (FP) PO SCH ×3 (05:58→22:09)
[2019-12-12] MEDS: ACETAMINOPHEN 325 MG TABLET (FP) PO SCH ×5 (05:58→22:12)
[2019-12-12 09:17] LABS: BASO % 0.2 % (0-2.0); EOS % 0.3 % (0-4.5); HEMATOCRIT 36.6 % (35.4-49); HEMOGLOBIN 12.4 GM/dL (11.7-16.9); LYMPH % 13.8 % (8-40); MCH 29.3 pg (25.7-33.7); MCHC 33.9 g/dl (32.0-35.9); MEAN CELL VOLUME 86.5 fl (80-96); MEAN PLT VOLUME 6.4 fl (7.5-11.1); MONO % 12.4 % (3.8-10.2); NEUT % 73.3 % (42.8-82.8); PLATELET COUNT 280 K/MM3 (134-434); RBC 4.23 M/mm3 (4.00-5.60); RDW 14.2 % (11.9-15.9); WHITE BLOOD COUNT 8.8 K/mm3 (4.0-10.0)
[2019-12-12] MEDS: FAMOTIDINE 20 MG TABLET PO SCH (09:23)
[2019-12-12] MEDS: LORATADINE 10 MG TABLET PO SCH (09:23)
[2019-12-12] MEDS: CITALOPRAM HYDROBROMIDE 20 MG TABLET PO SCH (09:23)
[2019-12-12] MEDS: amLODIPine BESYLATE 5 MG TABLET (FP) PO SCH (09:23)
[2019-12-12 09:33] LABS: ALBUMIN 3.1 g/dl (3.4-5.0); BILIRUBIN,TOTAL 0.6 mg/dL (0.2-1); BLOOD UREA NITROGEN 7.7 mg/dL (7-18); CALCIUM 8.2 mg/dL (8.5-10.1); CREATININE 0.6 mg/dL (0.55-1.3); MAGNESIUM 2.2 mg/dL (1.8-2.4); PHOSPHOROUS 3.4 mg/dL (2.5-4.9); TOT PROT 5.9 g/dl (6.4-8.2)
--- NOTE | 2019-12-12 09:48 | PN ---
Teaching Attending Note Name of Resident: Last Cortes ATTENDING PHYSICIAN STATEMENT I saw and evaluated the patient. I reviewed the resident's note and discussed the case with the resident. I agree with the resident's findings and plan as documented. SUBJECTIVE: Patient denies any nausea vomiting feeling comfortable OBJECTIVE: Vital Signs Temperature 98.1 F 12/12/19 06:00 Pulse Rate 85 12/12/19 06:00 Respiratory Rate 20 12/12/19 06:00 Blood Pressure 146/78 12/12/19 06:00 O2 Sat by Pulse Oximetry (%) 99 12/12/19 00:00 General: Young man, comfortable, not in distress HEENT: mucous membranes moist, no anemia, no jaundice, PERRLA, no nystagmus Neck: No JVD, supple, no bruit, thyroid palpably normal, normal carotid pulsations. Chest: Nontender, clear to auscultation bilaterally CVS: S1-S2 regular/irregular no murmur/gallop/rub Abdomen: S/P left inguinal hernia repair nondistended, soft, bowel sounds present. 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 , no gross motor sensory deficit CBC, BMP 12/12/19 08:50 12/12/19 07:55 Active Medications Acetaminophen (Tylenol -) 325 mg PO Q4HWA [facility] Last Admin: 12/12/19 09:26 Dose: 325 mg Amlodipine Besylate (Norvasc -) 5 mg PO DAILY [facility] Last Admin: 12/12/19 09:23 Dose: 5 mg Citalopram Hydrobromide (Celexa -) 20 mg PO DAILY [facility] Last Admin: 12/12/19 09:23 Dose: 20 mg Docusate Sodium (Colace -) 100 mg PO TID [facility] Last Admin: 12/12/19 05:58 Dose: Not Given Famotidine (Pepcid -) 40 mg PO DAILY [facility] Last Admin: 12/12/19 09:23 Dose: 40 mg Gabapentin (Neurontin -) 300 mg PO TID [facility] Last Admin: 12/12/19 05:56 Dose: 300 mg Lactated Ringer's (Lactated Ringers Solution) 1,000 mls @ 100 mls/hr IV ASDIR [facility] Last Admin: 12/12/19 03:00 Dose: 100 mls/hr Ketorolac Tromethamine (Toradol Injection -) 30 mg IVPUSH Q6H PRN PRN Reason: PAIN LEVEL 6-10 Stop: 12/17/19 02:59 Loratadine (Claritin -) 10 mg PO DAILY [facility] Last Admin: 12/12/19 09:23 Dose: 10 mg Metoprolol Succinate (Toprol Xl -) 50 mg PO DAILY [facility] Last Admin: 12/12/19 09:23 Dose: 50 mg Morphine Sulfate (Morphine Sulfate) 4 mg IVPUSH Q3H PRN PRN Reason: Pain Level 7 - 10 BREAKTHROUGH Morphine Sulfate (Ms Contin -) 60 mg PO TID [facility] Last Admin: 12/12/19 05:56 Dose: 60 mg Non-Formulary Medication (Enzalutamide [Xtandi]) 160 mg PO DAILY [facility] Oxycodone HCl (Roxicodone -) 10 mg PO Q4HWA [facility] Last Admin: 12/12/19 09:23 Dose: 10 mg Senna (Senna -) 2 tab PO HS PRN PRN Reason: Constipation if NO BM today Tramadol HCl (Ultram -) 50 mg PO Q6H PRN PRN Reason: PAIN LEVEL 7 - 10 ASSESSMENT AND PLAN: 59 years old man history of hypertension, CA prostate with extension mets to spine, ribs, pelvis, and other skeletal sites, status postop and radiation therapy on hormonal therapy, presented to ED with left groin bulge that was started on Monday after lifting 50 pound laundry and he was standing due to constipation, patient is on opiates for chronic pain, day before hospitalization noticed that his skin over bulging getting redness that gradually extended to penis came to ED for evaluation, in the ED CT scan shows strangulated left inguinal hernia underwent surgery by Dr. Garcia, patient feels comfortable walking tolerating p.o. Problem List - Problems (1) Incarcerated left inguinal hernia Assessment/Plan: Status post surgery, patient is able to pass gases no BM denies any abdominal pain. We will follow-up surgery recommendations Problems reviewed: Yes Code(s): K40.30 - UNIL INGUINAL HERNIA, W OBST, W/O GANGR, NOT SPCF RECUR (2) Prostate cancer metastatic to bone Assessment/Plan: Continue home hormonal therapy Problems reviewed: Yes Code(s): C61 - MALIGNANT NEOPLASM OF PROSTATE; C79.51 - SECONDARY MALIGNANT NEOPLASM OF BONE (3) HTN (hypertension) Assessment/Plan: Well- control will resume home medications Problems reviewed: Yes Code(s): I10 - ESSENTIAL (PRIMARY) HYPERTENSION Qualifiers: Hypertension type: essential hypertension Qualified Code(s): I10 - Essential (primary) hypertension (4) Chronic pain Assessment/Plan: Continue home medications Problems reviewed: Yes Code(s): G89.29 - OTHER CHRONIC PAIN (5) BPH (benign prostatic hyperplasia) Assessment/Plan: Continue Flomax Problems reviewed: Yes Code(s): N40.0 - BENIGN PROSTATIC HYPERPLASIA WITHOUT LOWER URINRY TRACT SYMP
--- NOTE | 2019-12-12 09:51 | HP ---
CHIEF COMPLAINT: L. groin pain and L. testicular pain PCP: Dr. Guadarrama HISTORY OF PRESENT ILLNESS: Pt. is a 59 y.o. M w/ PMHx. of Metastatic Prostate CA( s/p TURP, RT- 3 more treatments left, and on hormonal therapy), HTN, BPH and Depression presents with L. groin pain. Pt. states that on Monday he was straining with his bowel movement and first noticed some left groin discomfort. On Monday he helped his sister lift her 50 lb. bag of laundry up 2 flight of stairs and noticed that his pain got much worse and developed some redness to the groin and left testicle. The pain did not resolve by Monday night so he went to [place] for evaluation. CT Scan at [place] showed incarcerated hernia. Of note Pt. is on high doses of opiates for chronic pain secondary to metastases to multiple bones. Pt. was evaluated by Surgeon Dr. Garcia and had procedure overnight. Pt. had incarcerated fat excised and hernia was repaired with mesh. Pt. is currently passing gas, tolerating PO and is up walking. Pt. complains of chronic pain in bony areas as well as pain on deep respirations in lower abdomen around surgical site. Pain is 4-5/10. Pt. complains of burning sensation at the tip of penis where Joshi was inserted and removed after procedure. Pt initally had some red urine on first urination but no further bleeding on subsequent voids. Pt. complains of inability to approximate teeth completely but states that it is improving and believes it is because of intubation tube. Pt. states that he never had colonoscopy and does not intend to as he has a 2 year life expectancy left. ER course was notable for: (1) CBC, CMP, CT AP, Surgery consult (2) (3) Recent Travel: No PAST MEDICAL HISTORY: As above PAST SURGICAL HISTORY: Social History: Smokin.5 PPD x 30 years, Quit 11 years ago Alcohol: Denies Drugs: Denies Allergies codeine Allergy (Intermediate, Verified 12/11/19 13:01) Penicillins Allergy (Intermediate, Verified 12/11/19 13:00) Hives cat pelt standardized allergenic ex [Cat Pelt Std Extract] Allergy (Verified 13:00) ibuprofen Adverse Reaction (Severe, Verified 12/11/19 13:00) Vomiting GI BLEED HOME MEDICATIONS: Home Medications Medication Instructions Recorded Amlodipine Besylate 5 mg PO DAILY 12/11/19 Citalopram Hydrobromide 20 mg PO DAILY 12/11/19 [Citalopram HBr] Enzalutamide [Xtandi] 160 mg PO DAILY 12/11/19 Famotidine [Pepcid -] 40 mg PO DAILY 12/11/19 Furosemide [Lasix] 20 mg PO DAILY 12/11/19 Gabapentin 300 mg PO TID 12/11/19 Loratadine [Claritin] 10 mg PO DAILY 12/11/19 Metoprolol Succinate 50 mg PO DAILY 12/11/19 Morphine Sulfate [Arymo ER] 60 mg PO TID 12/11/19 Nabumetone 750 mg PO BID 12/11/19 Oxycodone HCl/Acetaminophen 1 each PO Q4HWA 12/11/19 [Percocet 10-325 mg Tablet] REVIEW OF SYSTEMS As above PHYSICAL EXAMINATION Vital Signs - 24 hr 12/11/19 12/11/19 12/11/19 12:58 15:56 16:25 Temperature 97.9 F Pulse Rate 75 Pulse Rate [ 81 85 Left Radial] Respiratory 16 16 16 Rate Blood Pressure 129/83 Blood Pressure 145/95 154/71 [Right Arm] O2 Sat by Pulse 97 96 96 Oximetry (%) 12/11/19 12/11/19 12/11/19 20:39 20:55 21:10 Temperature 98.2 F Pulse Rate 84 88 94 H Pulse Rate [ Left Radial] Respiratory 16 16 12 Rate Blood Pressure 172/80 H 141/68 140/72 Blood Pressure [Right Arm] O2 Sat by Pulse 93 L 95 95 Oximetry (%) 12/11/19 12/11/19 12/11/19 21:25 21:40 21:55 Temperature Pulse Rate 86 88 88 Pulse Rate [ Left Radial] Respiratory 16 16 14 Rate Blood Pressure 145/69 131/65 136/66 Blood Pressure [Right Arm] O2 Sat by Pulse 95 95 94 L Oximetry (%) 12/11/19 12/12/19 12/12/19 22:10 00:00 06:00 Temperature 98.4 F 97.9 F 98.1 F Pulse Rate 86 93 H 85 Pulse Rate [ Left Radial] Respiratory 16 20 20 Rate Blood Pressure 138/88 157/89 146/78 Blood Pressure [Right Arm] O2 Sat by Pulse 95 99 Oximetry (%) GENERAL: Awake, alert, and fully oriented, in no acute distress. HEAD: Normal with no signs of trauma. EYES:extraocular movements intact, sclera anicteric, conjunctiva clear. EARS, NOSE, THROAT: Ears normal, nares patent, oropharynx clear without exudates. Moist mucous membranes. LUNGS: Breath sounds equal, clear to auscultation bilaterally. No wheezes, and no crackles. No accessory muscle use. HEART: Regular rate and rhythm, normal S1 and S2 without murmur ABDOMEN: Soft, LUQ tenderness, tenderness around dressings of incision sites. Dressings CDI, not distended, normoactive bowel sounds MUSCULOSKELETAL: Lower back tenderness, No CVA tenderness. UPPER EXTREMITIES: warm, well-perfused. No cyanosis. No clubbing. No peripheral edema. LOWER EXTREMITIES: 2+ dorsal pedal pulses, warm, well-perfused. No calf tenderness. No peripheral edema. NEUROLOGICAL: Normal speech. Normal gait. PSYCHIATRIC: Cooperative. Good eye contact. Appropriate mood and affect for condition. SKIN: Warm, dry, normal turgor, no rashes or lesions noted, normal capillary refill. Laboratory Results - last 24 hr 12/11/19 12/11/19 12/11/19 14:05 14:05 14:10 WBC 8.3 RBC 4.88 Hgb 14.4 Hct 42.9 MCV 87.9 MCH 29.4 MCHC 33.5 RDW 13.2 Plt Count 320 MPV 6.8 L Absolute Neuts (auto) 4.7 Neutrophils % 56.3 Lymphocytes % 26.3 D Monocytes % 14.6 H Eosinophils % 2.3 Basophils % 0.5 Nucleated RBC % PT with INR 13.6 H INR 1.22 PTT (Actin FS) 33.2 Sodium Potassium Chloride Carbon Dioxide Anion Gap BUN Creatinine Est GFR (CKD-EPI)AfAm Est GFR (CKD-EPI)NonAf Random Glucose Lactic Acid Calcium Phosphorus Magnesium Total Bilirubin AST ALT Alkaline Phosphatase Total Protein Albumin Urine Color Urine Appearance Urine pH Urine Protein Urine Glucose (UA) Urine Ketones Urine Blood Urine Nitrite Urine Bilirubin Urine Urobilinogen Ur Leukocyte Esterase Blood Type Antibody Screen 12/11/19 12/11/19 12/11/19 14:10 14:10 14:27 WBC RBC Hgb Hct MCV MCH MCHC RDW Plt Count MPV Absolute Neuts (auto) Neutrophils % Lymphocytes % Monocytes % Eosinophils % Basophils % Nucleated RBC % PT with INR INR PTT (Actin FS) Sodium 136 Potassium 4.0 Chloride 103 Carbon Dioxide 27 Anion Gap 6 L BUN 8.0 Creatinine 0.7 Est GFR (CKD-EPI)AfAm 121.41 Est GFR (CKD-EPI)NonAf 104.76 Random Glucose 104 Lactic Acid 1.0 Calcium 8.9 Phosphorus Magnesium Total Bilirubin 0.8 AST 20 ALT 20 Alkaline Phosphatase 58 Total Protein 6.8 Albumin 4.0 Urine Color Yellow Urine Appearance Clear Urine pH 6.0 Urine Protein Negative Urine Glucose (UA) Negative Urine Ketones Negative Urine Blood Negative Urine Nitrite Negative Urine Bilirubin Negative Urine Urobilinogen 0.2 Ur Leukocyte Esterase Negative Blood Type Antibody Screen 12/11/19 12/12/19 12/12/19 15:10 07:55 08:50 WBC 8.8 RBC 4.23 Hgb 12.4 Hct 36.6 MCV 86.5 MCH 29.3 MCHC 33.9 RDW 14.2 Plt Count 280 D MPV 6.4 L Absolute Neuts (auto) 6.5 Neutrophils % 73.3 D Lymphocytes % 13.8 D Monocytes % 12.4 H Eosinophils % 0.3 D Basophils % 0.2 Nucleated RBC % 0 PT with INR INR PTT (Actin FS) Sodium 142 Potassium 4.0 Chloride 106 Carbon Dioxide 28 Anion Gap 8 BUN 7.7 Creatinine 0.6 Est GFR (CKD-EPI)AfAm 129.36 Est GFR (CKD-EPI)NonAf 111.61 Random Glucose 123 H Lactic Acid Calcium 8.2 L Phosphorus 3.4 Magnesium 2.2 Total Bilirubin 0.6 AST 15 ALT 21 Alkaline Phosphatase 59 Total Protein 5.9 L Albumin 3.1 L Urine Color Urine Appearance Urine pH Urine Protein Urine Glucose (UA) Urine Ketones Urine Blood Urine Nitrite Urine Bilirubin Urine Urobilinogen Ur Leukocyte Esterase Blood Type A POSITIVE Antibody Screen Negative ASSESSMENT/PLAN: Pt. is a 59 y.o. M w/ PMHx. of Metastatic Prostate CA( s/p TURP, RT- 3 more treatments left, and on hormonal therapy), HTN, BPH and Depression presents with L. groin pain. #Incarcerated Inguinal Hernia s/p Repair with Mesh POD #1, received 2 gm Ancef before procedure Dressing CDI, Did not remove first dressing. Pt. passing gas, tolerating PO c/w home Pain medications c/w Morphine 4 mg Q3H as per Surgery Incentive Spirometer f/u official CT A/P- reading per Dr. Garcia and myself did show left inguinal hernia. #HTN #Metastatic Prostate CA #BPH #Depression c/w home medications except Nabumetone and Lasix #FEN LR @ 100, can D/c once tolerating full meals monitor electrolytes and replete as needed Regular Diet #DVT Ppx. SCDs, avoid NSAIDs and AC Visit type - Emergency Visit Emergency Visit: Yes ED Registration Date: 12/11/19 Care time: The patient presented to the Emergency Department on the above date and was hospitalized for further evaluation of their emergent condition. - New Patient This patient is new to me today: Yes Date on this admission: 12/12/19 - Critical Care Critical Care patient: No ATTENDING PHYSICIAN STATEMENT I saw and evaluated the patient. I reviewed the resident's note and discussed the case with the resident. I agree with the resident's findings and plan as documented. SUBJECTIVE: OBJECTIVE: ASSESSMENT AND PLAN:
[2019-12-12] MEDS ORDERED: LORATADINE 10 MG TABLET PO SCH (10:00)
[2019-12-12] MEDS ORDERED: PATIENT'S OWN MEDICATION (NON-FORMULARY) (Enzalutamide [Xtandi] 160 MG) PO SCH ×2 (10:00)
[2019-12-12] MEDS ORDERED: CITALOPRAM HYDROBROMIDE 20 MG TABLET PO SCH (10:00)
[2019-12-12] MEDS ORDERED: PATIENT'S OWN MEDICATION (NON-FORMULARY) (Famotidine 40 MG) PO SCH ×2 (10:00)
[2019-12-12] MEDS ORDERED: GABAPENTIN 300 MG CAPSULE PO SCH (10:00)
[2019-12-12] MEDS ORDERED: amLODIPine BESYLATE 5 MG TABLET (FP) PO SCH (10:00)
--- NOTE | 2019-12-12 12:37 | PN ---
Progress Note (short form) - Note Progress Note: POD #1 s/p L inguinal hernia repair under GETA. Doing well, denies pain/nausea/ sore throat. All questions answered.
--- NOTE | 2019-12-12 12:43 | EKG ---
Test Reason : Blood Pressure : / mmHG Vent. Rate : 080 BPM Atrial Rate : 080 BPM P-R Int : 174 ms QRS Dur : 104 ms QT Int : 394 ms P-R-T Axes : 036 016 -03 degrees QTc Int : 454 ms SINUS RHYTHM WITH OCCASIONAL PREMATURE VENTRICULAR COMPLEXES POSSIBLE LEFT ATRIAL ENLARGEMENT INFERIOR INFARCT (CITED ON OR BEFORE 03-DEC-2018) ABNORMAL ECG WHEN COMPARED WITH ECG OF 03-DEC-2018 21:39, PREMATURE VENTRICULAR COMPLEXES ARE NOW PRESENT ST NO LONGER ELEVATED IN INFERIOR LEADS NONSPECIFIC T WAVE ABNORMALITY NOW EVIDENT IN LATERAL LEADS Confirmed by ILDEFONSO ARRIOLA MD ([id number]) on 12/12/2019 12:42:44 PM Referred By: MD POLK Confirmed By:ILDEFONSO ARRIOLA MD
--- NOTE | 2019-12-12 15:19 | PN ---
Progress Note, Physician History of Present Illness: Pt s/p incarcerated left inguinal hernia repair with mesh, fat content identified at OR. Seen and examined in bed, resting comfortably. He reports having had breakfast, but not hungry for lunch right now. Voiding ok, ambulated in halls. Passing gas but no BM yet. He has pain in left groin and some swelling , but so far is manageable with meds. [facility] has not used any tramadol, toradol or IV morphine. - Current Medication List Current Medications: Active Medications Acetaminophen (Tylenol -) 325 mg PO Q4HWA [facility] Last Admin: 12/12/19 14:04 Dose: 325 mg Amlodipine Besylate (Norvasc -) 5 mg PO DAILY [facility] Last Admin: 12/12/19 09:23 Dose: 5 mg Citalopram Hydrobromide (Celexa -) 20 mg PO DAILY [facility] Last Admin: 12/12/19 09:23 Dose: 20 mg Docusate Sodium (Colace -) 100 mg PO TID [facility] Last Admin: 12/12/19 14:03 Dose: 100 mg Famotidine (Pepcid -) 40 mg PO DAILY [facility] Last Admin: 12/12/19 09:23 Dose: 40 mg Gabapentin (Neurontin -) 300 mg PO TID [facility] Last Admin: 12/12/19 14:03 Dose: 300 mg Ketorolac Tromethamine (Toradol Injection -) 30 mg IVPUSH Q6H PRN PRN Reason: PAIN LEVEL 6-10 Stop: 12/17/19 02:59 Loratadine (Claritin -) 10 mg PO DAILY [facility] Last Admin: 12/12/19 09:23 Dose: 10 mg Metoprolol Succinate (Toprol Xl -) 50 mg PO DAILY [facility] Last Admin: 12/12/19 09:23 Dose: 50 mg Morphine Sulfate (Ms Contin -) 60 mg PO TID [facility] Last Admin: 12/12/19 14:04 Dose: 60 mg Non-Formulary Medication (Enzalutamide [Xtandi]) 160 mg PO DAILY [facility] Oxycodone HCl (Roxicodone -) 10 mg PO Q4HWA [facility] Last Admin: 12/12/19 14:04 Dose: 10 mg Senna (Senna -) 2 tab PO HS PRN PRN Reason: Constipation if NO BM today Tramadol HCl (Ultram -) 50 mg PO Q6H PRN PRN Reason: PAIN LEVEL 7 - 10 - Objective Vital Signs: Vital Signs Temperature 98.6 F 12/12/19 14:34 Pulse Rate 77 12/12/19 14:34 Respiratory Rate 18 12/12/19 14:34 Blood Pressure 132/60 12/12/19 14:34 O2 Sat by Pulse Oximetry (%) 99 12/12/19 00:00 Constitutional: Yes: Well Nourished, No Distress, Calm Eyes: Yes: Conjunctiva Clear, EOM Intact HENT: Yes: Atraumatic, Normocephalic Gastrointestinal: Yes: Soft, Abdomen, Obese, Tenderness (left groin incisional, referred from right/other areas of abdomen to left groin area; no testicular tenderness anymore) Genitourinary: Yes: Scrotal Edema (mild swelling/edema of left scrotum and inguinal region, no tenderness except incisional) Extremities: No: Cool, Cyanosis Integumentary: Yes: Incision (left groin, dressed). No: Bruising, Jaundice, Rash Wound/Incision: Yes: Hieu Intact (under dressing), Dressing Dry and Intact. No: Dressing Removed Neurological: Yes: Alert, Oriented Labs: CBC, BMP 12/12/19 08:50 12/12/19 07:55 Problem List - Problems (1) Incarcerated left inguinal hernia Assessment/Plan: POD1 s/p left incarcerated inguinal hernia repair with mesh doing well overall pain control with home regimen plus prn available, not using yet will give tramadol now - consider home Rx for 50mg q8H prn severe pain on d/c tolerating po, not much appetite voiding, + flatus, no BM yet incision with dressing c/d/i continue home meds except Lasix and nabumetone (NSAID) for now - can resume on d /c bowel regimen to combat constipation - to continue at home Colace and Senna Rx placed to [facility] on for d/c home from surgical standpoint to f/u with PMD/urologist f/u with surgery 3 wks instructions in d/c plan Code(s): K40.30 - UNIL INGUINAL HERNIA, W OBST, W/O GANGR, NOT SPCF RECUR (2) Left groin pain Assessment/Plan: now incisional Code(s): R10.32 - LEFT LOWER QUADRANT PAIN (3) Constipation due to opioid therapy Assessment/Plan: Rx on discharge: Colace 100mg tid AND Senna 8.6 mg tabs, 1-2 po qhs encourage plenty of water daily Code(s): K59.03 - DRUG INDUCED CONSTIPATION; T40.2X5A - ADVERSE EFFECT OF OTHER OPIOIDS, INITIAL ENCOUNTER (4) Prostate cancer metastatic to bone Code(s): C61 - MALIGNANT NEOPLASM OF PROSTATE; C79.51 - SECONDARY MALIGNANT NEOPLASM OF BONE (5) Chronic pain due to malignant neoplastic disease Code(s): G89.3 - NEOPLASM RELATED PAIN (ACUTE) (CHRONIC) (6) HTN (hypertension) Code(s): I10 - ESSENTIAL (PRIMARY) HYPERTENSION Qualifiers: Hypertension type: essential hypertension Qualified Code(s): I10 - Essential (primary) hypertension
[2019-12-12] MEDS ORDERED: SENNOSIDES 8.6MG TABLET (FP) PO PRN ×2 (20:00)
[2019-12-13 06:00] VITALS: TEMP 98.4
[2019-12-13] MEDS: morphine SO4 SUSTAINED ACTING 30 MG TABLET.SA PO SCH (06:29)
[2019-12-13] MEDS: DOCUSATE SODIUM 100 MG CAPSULE (FP) PO SCH (06:29)
[2019-12-13] MEDS: oxyCODONE HCL 5 MG TABLET PO SCH ×2 (06:30→09:48)
[2019-12-13] MEDS: GABAPENTIN 300 MG CAPSULE PO SCH (06:30)
[2019-12-13] MEDS: ACETAMINOPHEN 325 MG TABLET (FP) PO SCH ×2 (06:31→09:48)
--- NOTE | 2019-12-13 08:20 | DS ---
Physical Examination Vital Signs: Vital Signs Temperature 98.4 F 12/13/19 05:58 Pulse Rate 82 12/13/19 05:58 Respiratory Rate 20 12/13/19 05:58 Blood Pressure 139/81 12/13/19 05:58 O2 Sat by Pulse Oximetry (%) 99 12/12/19 21:00 General: Young man, comfortable, not in distress HEENT: mucous membranes moist, no anemia, no jaundice, PERRLA, no nystagmus Neck: No JVD, supple, no bruit, thyroid palpably normal, normal carotid pulsations. Chest: Nontender, clear to auscultation bilaterally CVS: S1-S2 regular/irregular no murmur/gallop/rub Abdomen: S/P left inguinal hernia repair nondistended, soft, bowel sounds present. Extremities: No edema., No calf tenderness, pulses present HUMANITIES DIVISION CHAIR: AO X3 , no gross motor sensory deficit Labs: CBC, BMP 12/12/19 08:50 12/12/19 07:55 Discharge Summary Problems reviewed: Yes Current Active Problems Incarcerated left inguinal hernia (Acute) Left groin pain (Acute) Prostate cancer metastatic to bone (Acute) Constipation due to opioid therapy (Acute) Hospital Course: 59 years old man history of hypertension, CA prostate with extension mets to spine, ribs, pelvis, and other skeletal sites, status postop and radiation therapy on hormonal therapy, presented to ED with left groin bulge that was started on Monday after lifting 50 pound laundry and he was standing due to constipation, patient is on opiates for chronic pain, day before hospitalization noticed that his skin over bulging getting redness that gradually extended to penis came to ED for evaluation, in the ED CT scan shows strangulated left inguinal hernia underwent surgery by Dr. Garcia, patient feels comfortable walking tolerating p.o. patient is cleared by surgery to [place] home. Condition: Improved - Instructions Diet, Activity, Other Instructions: Postoperative instructions: You had an incarcerated left inguinal hernia repair with mesh on 12/11/[address] Griffin Garcia of [facility]. Activity: Resume your usual activities gradually, but no heavy exertion or lifting more than 10-15 pounds for 4-6 weeks. Remove dressings 48 hours after surgery, if they are not already off. You may shower daily starting then, just pat the incision areas dry. No bath or swimming until skin incisions have healed. [place] should not need to be recovered with any dressings, unless you have been told otherwise. Eat lightly at first, but advance to your usual diet as tolerated. Pain: For pain, you may use your usual pain medications. If you need additional medicine, you may take an extra regular Tylenol every 4-6 hours, but do not take more than 4000 mg of acetaminophen in a day (there is some in each Percocet as well). Take medications as prescribed or indicated on the labeling. You may be prescribed an additional pain medication to use as needed for severe pain in addition to your others (tramadol). Reduce and stop taking this medicine as your groin pain decreases and becomes manageable with your usual regimen. You will need to continue taking stool softeners and laxatives at home to keep your stool soft and moving. Take prescriptions as instructed, and discuss with your regular medical doctor, if you continue to have problems with constipation. Follow-up: Call Dr. Garcia's office at [phone] to make your postop appointment (Monday in approximately 3 weeks after surgery as advised). Clinic is held in the [facility] on the first floor of [facility]. Call the office if you have: * increasing pain not responsive to pain medication * fever of 101F or higher * vomiting * unusual or increasing bleeding or drainage from wounds * increasing redness or swelling at wound sites Also, see your primary medical doctor and urologist within 1-2 weeks. Referrals: Domingo Mario MD [Staff Physician] - Griffin Garcia MD [Staff Physician] - Disposition: HOME - Home Medications Comprehensive Discharge Medication List: Ambulatory Orders Amlodipine Besylate 5 mg PO DAILY 12/11/19 Citalopram Hydrobromide [Citalopram HBr] 20 mg PO DAILY 12/11/19 Enzalutamide [Xtandi] 160 mg PO DAILY 12/11/19 Famotidine [Pepcid -] 40 mg PO DAILY 12/11/19 Furosemide [Lasix] 20 mg PO DAILY 12/11/19 Gabapentin 300 mg PO TID 12/11/19 Loratadine [Claritin] 10 mg PO DAILY 12/11/19 Metoprolol Succinate 50 mg PO DAILY 12/11/19 Morphine Sulfate [Arymo ER] 60 mg PO TID 12/11/19 Nabumetone 750 mg PO BID 12/11/19 Oxycodone HCl/Acetaminophen [Percocet 10-325 mg Tablet] 1 each PO Q4HWA Docusate Sodium [Colace -] 100 mg PO TID #90 capsule 12/12/19 Sennosides [Senna -] 1 - 2 tab PO HS #60 tablet 12/12/19 traMADol HCL [Ultram -] 50 mg PO Q8H PRN #22 tablet MDD 3 12/12/19
[2019-12-13 08:34] LABS: BASO % 0.3 % (0-2.0); HEMOGLOBIN 12.3 GM/dL (11.7-16.9); MCH 29.2 pg (25.7-33.7); MCHC 33.3 g/dl (32.0-35.9); MEAN CELL VOLUME 87.8 fl (80-96); MEAN PLT VOLUME 6.6 fl (7.5-11.1); MONO % 11.8 % (3.8-10.2); NEUT % 70.9 % (42.8-82.8); PLATELET COUNT 268 K/MM3 (134-434); RBC 4.22 M/mm3 (4.00-5.60); RDW 14.3 % (11.9-15.9); WHITE BLOOD COUNT 8.6 K/mm3 (4.0-10.0)
[2019-12-13 09:04] LABS: BLOOD UREA NITROGEN 8.4 mg/dL (7-18); CALCIUM 8.2 mg/dL (8.5-10.1); CREATININE 0.5 mg/dL (0.55-1.3); POTASSIUM 3.8 mmol/L (3.5-5.1)
[2019-12-13] MEDS: LORATADINE 10 MG TABLET PO SCH (09:48)
[2019-12-13] MEDS: amLODIPine BESYLATE 5 MG TABLET (FP) PO SCH (09:48)
[2019-12-13] MEDS: CITALOPRAM HYDROBROMIDE 20 MG TABLET PO SCH (09:48)
[2019-12-13] MEDS: FAMOTIDINE 20 MG TABLET PO SCH (09:49)
[2019-12-13 11:10] VITALS: BP 133/79; PULSE 91
--- NOTE | 2019-12-13 17:00 | PATH ---
Surgical Pathology Report Patient Name: DENISE NO Med. Rec. #: [id number] /Age/Gender: 1960 (Age: 59) / M Account: [id number] Location: [address] [place] [address]/[facility] Taken: 12/11/2019 Received: 12/12/2019 Reported: 12/17/2019 Physicians: Griffin Garcia M.D. Specimen(s) Received PORTION OF HERNIA SAC AND CONTENTS Clinical History Left lower quadrant pain, incarcerated left inguinal hernia Final Diagnosis PORTION OF HERNIA SAC AND CONTENTS, EXCISION: PORTION OF FIBROUS AND ADIPOSE TISSUE WITH MARKED EDEMA AND RECENT HEMORRHAGE. PORTION OF POUCH-LIKE COLONIC TISSUE PRESENT, MAY REPRESENT A DIVERTICULUM OR COLONIC ADHESION. Electronically Signed Clarence Berrios M.D. Amendments Amended: 12/17/2019 Previous Signout Date: 12/13/2019 Comment: Report new findings of the addtional sections based on the clinical information provided by Dr. Garcia. Gross Description Received in formalin labeled "portion of hernia sac and contents," is a 7.5 x 5.5 x 1.5 cm aggregate of hemorrhagic olivia-brown fibrous tissue and attached fat, consistent with a hernia sac. Blending Machine Operator sections are submitted in one cassette. Additional sections: Cassette 2: entire tissue adjacent to staple line. Cassette 3, 4: Additional random sections from fibroadipose tissue. /12/12/2019 saudi/12/12/2019
--- NOTE | 2019-12-16 16:52 | OP ---
DATE OF OPERATION: 12/11/2019 PREOPERATIVE DIAGNOSIS: Incarcerated left inguinal hernia. POSTOPERATIVE DIAGNOSIS: Incarcerated indirect left inguinal hernia. OPERATION: Incarcerated left inguinal hernia repair with mesh. SURGEON: Griffin Garcia MD FOURCHETTE SEWER: ELIUD De La O ANESTHESIA: General endotracheal. ESTIMATED BLOOD LOSS: 15 mL. FLUIDS: 2 L of crystalloid. URINE OUTPUT: 700 mL (Joshi removed at end of case). SPECIMEN: Portion of hernia sac and contents to Pathology. IMPLANTS: Bard 2 x 4-inch flat mesh with 3 corners trimmed. FINDINGS: Ischemic sigmoid epiploic fat incarcerated in the left inguinal indirect hernia, which was excised and sent to Pathology. Sac was densely adherent to the vas and a portion of the cord structures. This was carefully and the cord preserved. Sac was divided, distal left in situ, proximal ligated, and a portion amputated and sent to Pathology. Bard 2 x 4-inch flat mesh was used to repair the inguinal floor. Testicles were palpable in the scrotum at the conclusion of the procedure. DISPOSITION: Stable and extubated to PACU. INDICATIONS FOR PROCEDURE: Patient is a 59-year-old male with hypertension and metastatic prostatic cancer to bone ,with a history of TURP and x-ray therapy, now on only hormonal therapy, who presented with left groin pain and a bulge, which started 2 days prior to presentation, after lifting a heavy object and straining at stool, secondary to constipation from chronic opioid therapy. He thought he had pulled a groin muscle and had to help a family member, so did not initially seek medical attention, but the day prior to presentation, he noticed the skin over the area getting pink, and the day of presentation, he noticed his penile shaft also becoming pink and a bit swollen. In the emergency room at [facility], he was afebrile with a normal white count, but noted to have an unreducible left inguinal hernia, which was tender with overlying erythema. He had no nausea and vomiting. He took his morning medications including his beta ganesh, but not his strong NSAID. The patient had oral contrast and was sent for CT scan with oral and IV contrast, suggesting the content of the hernia was fat only, although the sigmoid colon abutted the inguinal canal. He was transferred to the [facility] for operation, given IV fluids and pain medication. Risks, benefits, and alternatives of left incarcerated inguinal hernia repair with possible mesh and possible bowel resection were discussed with the patient including, but not limited to, bleeding, infection, injury to adjacent structures, intestinal leak or injury, recurrent incisional hernia, or testicular loss, and alternatives inclusive of delayed or no surgery , with attendant risks of ischemia or necrosis of the incarcerated structures, possible intestinal perforation, sepsis, and . Patient was agreeable to proceed with the operation on an emergent basis, signed informed consent for the same, and is now brought to the OR for this procedure. OPERATIVE TECHNIQUE: The patient was brought to the operating room and laid supine on the operating table. Sequential compression devices were applied to bilateral lower extremities, and 2 g of Ancef were given as preoperative antibiotic immediately prior to the procedure. After induction and intubation by Anesthesia, a Joshi catheter was placed in the patient's bladder, which was removed at the end of the case. His groin and perineal areas were clipped of hair, prepped and draped in sterile fashion to expose the left groin and inguinal region. An incision was made in the left groin beginning over the pubic tubercle and angled toward the anterior superior iliac spine. The incision was made with a scalpel and carried into subcutaneous tissues with electrocautery, until the external oblique fascia was identified and bluntly cleared on its surface. The external oblique fibers were nicked with a scalpel and opened in the direction of the fibers down to the external ring and also for a short distance superiorly. The edges of the external oblique were grasped with clamps, and the undersides cleared bluntly, revealing the inguinal ligament on the lateral side, and on the medial side, the lateral aspect of the rectus muscle and its fascia. The ilioinguinal nerve was noted immediately underneath the external oblique surface to the medial aspect. Initially, this was preserved, but before the end of the procedure, it was sacrificed to avoid chronic pain issues with relation to the mesh that was to immediately overlie it. It was transected both proximally and distally, each end tied off with silk suture, and the central portion of the nerve discarded. The cord structures and hernia sac were elevated off the pubic tubercle manually and encircled with a Pretty drain. Dissection was then undertaken to identify the hernia sac itself. As the patient had previous radiation for his prostate cancer, there were chronic, dense adhesions of the hernia sac to the surrounding tissues and some of the cord structures. Dissection was undertaken very carefully, and ultimately the cord structures were identified and re-encircled with the Pretty drain. The hernia sac was opened to identify and examine the contents and facilitate its reduction from the scrotal aspect. Eventually the fat content in the hernia sac was able to be brought up out of the scrotum. The distal aspect of the sac was noted to be adherent to the testicle. Thus, the hernia sac itself was divided with electrocautery, and the distal aspect left in situ. On the proximal portion, it also became clear that the vas deferens and part of the cord structures were still densely adherent to the sac itself. This was meticulously, bluntly to preserve the vas and the cord structures, which were added to the Pretty- encircled contents. Mosquito clamps were then placed around the edges of the open sac on the proximal aspect, and the fatty tissue present in the hernia sac was carefully and partially drawn out from the internal ring a little bit further, to ensure that there was no bowel content present in the sac. It appeared that this was sigmoid epiploic fat that was actually contained in the hernia, and an edge of the sigmoid colon did appear to be coming up from the proximal aspects. Several of the fingers of fat appeared to be possibly either epiploic or even possibly diverticular. One bit of fat that was simply twisted on its base was transected with electrocautery and this piece of fat sent as part of the hernia contents. The epiploica were transected next to the sigmoid wall with a ERROL 60 stapler, just in case there were any diverticular protrusions in the tissue. This then was also sent with the hernia contents. The visualized edge of the sigmoid and the stumps of the fat were then reduced into the abdominal cavity through the internal ring. The sac was held up circumferentially with mosquito clamps and a pursestring suture of 2-0 Vicryl used to tie it closed. An additional stick tie of 2-0 Vicryl was used, once that had been accomplished to ensure closure of the sac. The proximal portion was then amputated close to the suture line with electrocautery, and that portion of the proximal hernia sac also sent to Pathology. The specimen was "portion of hernia sac and contents." The stump of the hernia sac was also reduced through the internal ring. Hemostasis was achieved throughout the procedure with electrocautery where necessary, and attention was then turned to repairing the inguinal floor. The floor itself was noted to be weak, likely with an element of a direct component as well. One stitch of 0 Vicryl was used to imbricate the lateral aspect of the rectus muscle fascia down to the inguinal ligament, just to facilitate placement of the mesh over this area for proper reinforcement of the floor. A 2 x 4-inch Bard flat mesh was then selected for repair, with 3 corners trimmed. This was anchored to the pubic tubercle distally with 2-0 Prolene suture. Interrupted 2-0 Prolene sutures were then used to secure it laterally at the inguinal ligament, leaving space laterally for the cord structures to exit. Medially, this was secured to the lateral edge of the rectus fascia, and the superior tail tucked underneath the external oblique fascia. The Emery was removed. The area was irrigated with saline solution and hemostasis assured, once the mesh had been placed. The external oblique fascia was then closed in running fashion with a 2-0 Vicryl suture, down to the level of the cord, re-creating the external ring. Shira's fascia was then reapproximated with interrupted 3-0 Vicryl sutures, and a single 3-0 Vicryl stitch was placed subdermally to reapproximate the 2 edges of the incision in the middle, before skin was closed with doni. A dressing of gauze and Tegaderm was placed over the doni. At the conclusion of the procedure, the Joshi catheter was removed, and both testes pulled down and palpated to be completely seated in the scrotum. Counts were correct at the end of the procedure. The patient was then awakened and extubated by Anesthesia, moved back to a stretcher, and taken to the recovery room in stable condition, having tolerated the procedure well. ELIUD Brooke was an essential assistant professor of german throughout the procedure. He helped with retraction and exposure throughout the case, assisted with removal of the hernia contents and ligation of the hernia sac, as well as with closure of the tissue layers. Griffin Garcia M.D. [id number] MTDD
== END 2019-12-13 11:20 | disposition home or self-care (01) | DRG 228 ==
LOC: FER 12:56 → JSAMEDAYSX 18:02 → J6S 22:21
PROVIDERS: ADMIT Internal Medicine; ATTEND Internal Medicine
PROC: 0YU60JZ Supplement Left Inguinal Region with Synthetic Substitute, Open Approach (ICD-10-PCS; principal; 2019-12-11 18:00)
DX: K40.30 Unilateral inguinal hernia, with obstruction, without gangrene, not specified as recurrent (principal); C61 Malignant neoplasm of prostate; C79.51 Secondary malignant neoplasm of bone; I10 Essential (primary) hypertension; N40.0 Benign prostatic hyperplasia without lower urinary tract symptoms; K64.8 Other hemorrhoids; F32.9 Major depressive disorder, single episode, unspecified; M54.5 Low back pain; K59.03 Drug induced constipation; T40.2X5A Adverse effect of other opioids, initial encounter; G89.3 Neoplasm related pain (acute) (chronic)
CPT/HCPCS: 36415; 74177-TC; 80048; 80053; 81003; 83605; 83735; 84100; 85025; 85610; 85730; 86850; 86900; 86901; 88302-TC; 93005; 94760; 99284-25; J7030; Q9967

== ENCOUNTER 2020-06-05 10:18 | Emergency (ER) | payer OTHER ==
[2020-06-05 10:31] VITALS: BP 139/67; PULSE 87; TEMP 98.4; BMI 34.4
[2020-06-05 11:18] LABS: BASO % 0.7 % (0-2.0); EOS % 4.6 % (0-4.5); HEMATOCRIT 37.2 % (35.4-49); HEMOGLOBIN 12.7 GM/dL (11.7-16.9); LYMPH % 36.8 % (8-40); MCH 30.6 pg (25.7-33.7); MCHC 34.2 g/dl (32.0-35.9); MEAN CELL VOLUME 89.4 fl (80-96); MEAN PLT VOLUME 6.7 fl (7.5-11.1); MONO % 13.3 % (3.8-10.2); NEUT % 44.6 % (42.8-82.8); PLATELET COUNT 249 K/MM3 (134-434); RBC 4.16 M/mm3 (4.00-5.60); RDW 13.9 % (11.9-15.9); WHITE BLOOD COUNT 4.2 K/mm3 (4.0-10.0)
[2020-06-05 11:26] LABS: INR 1.02 (0.83-1.09)
--- NOTE | 2020-06-05 11:46 | PDOC ---
History of Present Illness - General Chief Complaint: Laceration Stated Complaint: LOWER LT LEG INJ Time Seen by Provider: 06/05/20 10:39 - History of Present Illness Initial Comments: 06/05/20 12:58 HPI: 59yo M pmh prostate cancer, HTN, presenting with bleeding from varicose vein he scratched today. Reports vigorous bleeding that spontaneously clotted off with direct pressure before I evaluated him. Denies chest pain, SOB, li ghtheadedness, syncope, weakness. Agrees to basic labs to r/o anemia and coagulation issues. Patient is not concerned with the situation and jokes that he needs someone to remove the varicose veins. Allergies and medications per chart. Past History - Travel History Traveled outside of the country in the last 30 days: No Close contact w/someone who was outside of country & ill: No - Medical History Allergies/Adverse Reactions: Allergies Allergy/AdvReac Type Severity Reaction Status Date / Time codeine Allergy Intermediate Verified 06/05/20 10:27 Penicillins Allergy Intermediate Hives Verified 06/05/20 10:27 cat pelt standardized Allergy Verified 06/05/20 10:27 allergenic ex [Cat Pelt Std Extract] ibuprofen AdvReac Severe Vomiting Verified 06/05/20 10:27 Home Medications: Ambulatory Orders Amlodipine Besylate 5 mg PO DAILY 12/11/19 Citalopram Hydrobromide [Citalopram HBr] 20 mg PO DAILY 12/11/19 Enzalutamide [Xtandi] 160 mg PO DAILY 12/11/19 Furosemide [Lasix] 20 mg PO DAILY 12/11/19 Gabapentin 300 mg PO TID 12/11/19 Loratadine [Claritin] 10 mg PO DAILY 12/11/19 Metoprolol Succinate 50 mg PO DAILY 12/11/19 Morphine Sulfate [Arymo ER] 60 mg PO TID 12/11/19 Nabumetone 750 mg PO BID 12/11/19 Oxycodone HCl/Acetaminophen [Percocet 10-325 mg Tablet] 1 each PO Q4HWA 12/11/19 Anemia: Yes Asthma: No Cancer: Yes (PROSTATE) Cardiac Disorders: Yes (NONSUSTAINED VT) CVA: No COPD: No CHF: No Dementia: No Diabetes: No GI Disorders: No Disorders: Yes (BPH, HYDRONEPHROSIS, URINARY RETETNION, OBSTRUCTIVE UROPATHY) HTN: Yes Hypercholesterolemia: No Liver Disease: No Seizures: No Thyroid Disease: No - Surgical History Abdominal Surgery: No Appendectomy: No Cardiac Surgery: No Cholecystectomy: No Lung Surgery: No Neurologic Surgery: No Orthopedic Surgery: Yes (01/2012) - Psycho-Social/Smoking History Smoking History: Former smoker Have you smoked in the past 12 months: No Number of Cigarettes Smoked Daily: 0 If you are a former smoker, when did you quit?: 11 years Information on smoking cessation initiated: No 'Breaking Loose' booklet given: 01/26/14 - Substance Abuse Hx (Audit-C & DAST Scrn) How often the patient has a drink containing alcohol: Never Score: In Men: 4 or > Positive; In Women: 3 or > Positive: 0 Screen Result (Pos requires Nsg. Audit-10AR): Negative In the last yr the pt used illegal drug/Rx for NonMed reason: No Score: Yes response is considered Positive: 0 Screen Result (Positive result requires Nsg. DAST-10): Negative Review of Systems - Review of Systems Able to Perform ROS?: Yes Is the patient limited Surinamese proficient: Yes Constitutional: No: Chills, Fever HEENTM: No: Recent change in vision, Throat Pain Respiratory: No: Cough, Shortness of Breath Cardiac (ROS): No: Chest Pain, Irregular Heart Rate, Lightheadedness, Syncope ABD/GI: No: Nausea, Vomiting Musculoskeletal: No: Muscle Pain, Muscle Weakness Integumentary: No: Pruritus, Rash Neurological: No: Headache, Numbness, Tingling, Weakness Psychiatric: No: Stressors, Change in Appetite Endocrine: No: Increased Thirst, Increased Urine Hematologic/Lymphatic: Yes: See HPI. No: Anemia, Blood Clots All Other Systems: Reviewed and Negative *Physical Exam - Vital Signs Last Vital Signs Temp Pulse Resp BP Pulse Ox 98.4 F 87 18 139/67 95 06/05/20 10:28 06/05/20 10:28 06/05/20 10:28 06/05/20 10:28 06/05/20 10:28 - Physical Exam 06/05/20 12:56 Vitals reviewed, AFVSS GEN: Well appearing, appears stated age, NAD, comfortable. AAOx3. HEENT: NCAT, EOMI, PERRL. Sclera anicteric, noninjected. No facial asymmetry. Mo ist mucous membranes. Normal voice. Trachea midline. CV: RRR, S1/S2, no murmurs / rubs / gallops appreciated. LUNG: CTABL, normal work of breathing. No wheezes, rales, rhonchi. No cough. Speaking full sentences. GI: Soft, NTND, +BS, no guarding, no rebound. No masses. EXTREMITIES: 2+ distal pulses. No clubbing / cyanosis / edema. No gross deformity in any extremity. Small 2mm varicose vein with clot on LLE. Dressed with gauze, not saturated after ambulation through the department. SKIN: Warm, dry, no rashes appreciated, non-jaundiced. PSYCH: Normal mood and affect. Cooperative and appropriate. NEURO: CN grossly intact. Moving all extremities well. Normal strength and sensation grossly. ED Treatment Course - LABORATORY CBC & Chemistry Diagram: 06/05/20 10:44 06/05/20 10:44 Medical Decision Making - Medical Decision Making 06/05/20 12:48 59yo M PMH prostate cancer stage 4, HTN, presenting with bleeding varicose vein. Vein stopped bleeding with direct pressure upon arrival. Minimal blood loss reported. Hemodynamically stable without complaints. Will r/o anemia, coagulation disturbance. - CBC, Coags, BMP - Oral Hydration 06/05/20 12:48 - Labs within normal limits - Wound remains hemostatic Dispo: Home Discharge - Discharge Information Problems reviewed: Yes Clinical Impression/Diagnosis: Bleeding from varicose vein Condition: Improved Disposition: HOME - Follow up/Referral Referrals: Ruba Justice MD [Primary Care Provider] - Joaquim Herrera DO [Staff Physician] - Andrea Roberson MD [Staff Physician] - - Patient Discharge Instructions Patient Printed Discharge Instructions: DI for Varicose Veins, DI on Treatment of Varicose Veins of the Leg Additional Instructions: do not pick the area avoid trauma keep the steri strip on compression dressings in place monitor for worsening symptoms, such as bleeding, pain, increased swelling, red ness, fever or chills, weakness or paresthesias. your blood work was within normal limits follow up with vascular surgeon. referrals given for management of your varicose veins. - Post Discharge Activity
[2020-06-05 11:55] LABS: CALCIUM 8.2 mg/dL (8.5-10.1); CREATININE 0.7 mg/dL (0.55-1.3)
--- NOTE | 2020-06-05 11:57 | PDOC ---
Documentation entered by Jaycee Newton SCRIBE, acting as scribe for Edita Odom MD. Edita Odom MD: This documentation has been prepared by the jimmyibeMary Kate Nirvannie, SCRIBE, under my direction and personally reviewed by me in its entirety. I confirm that the documentation accurately reflects all work, treatment, procedures, and medical decision making performed by me. Attending Attestation - Resident Resident Name: Carlos Modi - ED Attending Attestation I have performed the following: I have examined & evaluated the patient, The case was reviewed & discussed with the resident, I agree w/resident's findings & plan, Exceptions are as noted - HPI HPI: 06/05/20 11:48 [id number] with a significant past medical history of metastatic prostate cancer and varicose veins who presents to the ED via EMS with left lower extremity bleeding varicose vein. Per patient, he picked at one of his varicose veins on his left lower extremity leading to bleeding. Patients extremity was wrapped by EMS which she admits controlled the bleeding. Denies fever, chills, chest pain, SOB, palpitation, dizziness, weakness, N, V, D, abdominal pain, bladder and bowel problems, focal weakness/paresthesias, leg swelling/pain, rash. No sick contacts or travel. No new changes in medications. No suspicious food intake. Allergies: Per Nursing Notes. Past Medical History/PSH: Metastatic prostate ca, varivose veins Social history: Lives with family. No tobacco, ETOH or drug use. Meds: as documented in EMR PMD: Dr. Justice 06/05/20 12:39 - Physicial Exam PE: 06/05/20 11:49 Agree with the resident's HPI and PE as documented in the electronic medical record. NAD, well appearing, EOMI, PERRL, MMM, nl conjunctiva, anicteric; neck supple. lungs clear, RRR, abdomen soft nontender. Back nontender. SOUTH x4, no focal neuro deficits. +BLE chronic peripheral edema. normal color for ethnicity, WWP. no calf tenderness +LLE anterior/lower varicose vein visualized and nonbleeding. nontender. 06/05/20 12:40 - Medical Decision Making 06/05/20 12:36 Vital Signs Temp Pulse Resp BP Pulse Ox 98.4 F 87 18 139/67 95 06/05/20 10:28 06/05/20 10:28 06/05/20 10:28 06/05/20 10:06/05/20 10:28 Vital signs reviewed within normal limits, no tachycardia, no fevers no systemic symptoms Patient had a bleeding varicose vein which is been since controlled. Area is nontender, varicosity seen in the mid to lower left anterior winkler, nontender no active bleeding Labs are within normal limits, no coagulopathy is noted Compression was held no further bleeding episodes Steri-Strips placed over the varicosity, dressings and Jose wrap placed. Discharged with vascular surgery follow-up, referrals are given for varicose vein management, patient told not to pick or cause any further trauma to his lower extremity given his venous varicosities and predisposition to bleeding Discharge - Discharge Information Problems reviewed: Yes Clinical Impression/Diagnosis: Bleeding from varicose vein Condition: Improved Disposition: HOME - Admission No - Follow up/Referral Referrals: Ruba Justice MD [Primary Care Provider] - Joaquim Herrera DO [Staff Physician] - Andrea Roberson MD [Staff Physician] - - Patient Discharge Instructions Patient Printed Discharge Instructions: DI for Varicose Veins, DI on Treatment of Varicose Veins of the Leg Additional Instructions: do not pick the area avoid trauma keep the steri strip on compression dressings in place monitor for worsening symptoms, such as bleeding, pain, increased swelling, redness, fever or chills, weakness or paresthesias. your blood work was within normal limits follow up with vascular surgeon. referrals given for management of your varicose veins. - Post Discharge Activity
== END 2020-06-05 12:53 | disposition home or self-care (01) ==
LOC: JER 10:18
DX: I83.892 Varicose veins of left lower extremity with other complications (principal)
CPT/HCPCS: 36415; 80048; 85025; 85610; 85730; 99283-25

== ENCOUNTER 2022-02-03 10:32 | Emergency (ER) | payer OTHER ==
[2022-02-03 10:54] VITALS: BP 101/62; PULSE 86; TEMP 98.4; BMI 39.1
[2022-02-03 11:59] LABS: BASO % 0.4 % (0-2.0); EOS % 2.9 % (0-4.5); HEMATOCRIT 37.2 % (35.4-49); HEMOGLOBIN 12.7 GM/dL (11.7-16.9); LYMPH % 28.6 % (8-40); MCH 29.7 pg (25.7-33.7); MEAN CELL VOLUME 87.2 fl (80-96); MEAN PLT VOLUME 6.8 fl (7.5-11.1); MONO % 13.8 % (3.8-10.2); NEUT % 54.3 % (42.8-82.8); PLATELET COUNT 284 10^3/uL (134-434); RBC 4.27 M/mm3 (4.00-5.60); RDW 14.6 % (11.9-15.9); WHITE BLOOD COUNT 6.3 K/mm3 (4.0-10.0)
[2022-02-03 12:49] LABS: ACTIVATED PTT 35.2 SECONDS (25.2-36.5); INR 1.12 (0.83-1.09); PROTHROMBIN TIME (PATIENT) 12.9 SEC (9.7-13.0)
[2022-02-03 13:47] LABS: CALCIUM 9.4 mg/dL (8.5-10.1)
[2022-02-03 13:48] LABS: ALBUMIN 3.8 g/dl (3.4-5.0); BLOOD UREA NITROGEN 18.2 mg/dL (7-18)
[2022-02-03 13:52] LABS: BILIRUBIN,TOTAL 0.4 mg/dL (0.2-1); TOT PROT 6.6 g/dl (6.4-8.2)
== END 2022-02-03 15:44 | disposition home or self-care (01) ==
LOC: JER 10:32
DX: I83.899 Varicose veins of unspecified lower extremity with other complications (principal)
CPT/HCPCS: 36415; 71045-TC-FY; 80053; 85025; 85610; 85730; 93005; 93010; 99285-25

== ENCOUNTER 2022-02-05 07:17 | Inpatient (IN) | payer OTHER ==
[2022-02-05 09:04] LABS: BASO % 0.3 % (0-2.0); EOS % 2.2 % (0-4.5); HEMOGLOBIN 12.6 GM/dL (11.7-16.9); LYMPH % 21.4 % (8-40); MCH 29.1 pg (25.7-33.7); MCHC 33.2 g/dl (32.0-35.9); MEAN CELL VOLUME 87.6 fl (80-96); MEAN PLT VOLUME 7.1 fl (7.5-11.1); MONO % 11.4 % (3.8-10.2); NEUT % 64.7 % (42.8-82.8); PLATELET COUNT 299 10^3/uL (134-434); RBC 4.34 M/mm3 (4.00-5.60); RDW 14.6 % (11.9-15.9); WHITE BLOOD COUNT 6.9 K/mm3 (4.0-10.0)
[2022-02-05] MEDS ORDERED: VANCOMYCIN 1 GM in D5W (PRE-DOCKED) 1,000 MG/250 ML IVPB ONE (09:13)
[2022-02-05] MEDS ORDERED: PIPERACILLIN/TAZOB 4.5 GM 4.5 GM in DEXTROSE 5%-WATER 100 ML IVPB ONE (09:13)
[2022-02-05 09:19] LABS: INR 1.18 (0.83-1.09); PROTHROMBIN TIME (PATIENT) 13.6 SEC (9.7-13.0)
[2022-02-05 09:22] LABS: ACTIVATED PTT 32.2 SECONDS (25.2-36.5)
[2022-02-05 09:27] LABS: CALCIUM 9.5 mg/dL (8.5-10.1)
[2022-02-05 09:28] LABS: ALBUMIN 3.8 g/dl (3.4-5.0); BLOOD UREA NITROGEN 12.6 mg/dL (7-18)
[2022-02-05 09:31] LABS: CREATININE 0.9 mg/dL (0.55-1.3)
[2022-02-05 09:33] LABS: BILIRUBIN,TOTAL 0.5 mg/dL (0.2-1); TOT PROT 6.7 g/dl (6.4-8.2)
[2022-02-05] MEDS ORDERED: VANCOMYCIN 1 GRAM (PRE-DOCKED) 1,000 MG/250 ML BAG IVPB ONE (09:44)
[2022-02-05] MEDS ORDERED: PIPERACILLIN/TAZOB 4.5 GM 4.5 GM/100 ML BAG IVPB ONE (09:44)
[2022-02-05] MEDS ORDERED: AZTREONAM 1 GM VIAL (RESTRICTED TO ID) IVPB ONE (10:05)
[2022-02-05] MEDS ORDERED: AZTREONAM 2 GM VIAL (RESTRICTED TO ID) ONE (10:16)
[2022-02-05] MEDS ORDERED: GABAPENTIN 300 MG CAPSULE ONE (14:05)
[2022-02-05] MEDS: GABAPENTIN 300 MG CAPSULE PO SCH ×2 (14:06→22:18)
[2022-02-05] MEDS: morphine SO4 SUSTAINED ACTING 30 MG TABLET.SA PO SCH ×2 (15:19→22:18)
[2022-02-05 15:49] VITALS: BMI 38.9
[2022-02-05] MEDS ORDERED: NABUMETONE 750 MG TABLET PO SCH (22:00)
[2022-02-06] MEDS: morphine SO4 SUSTAINED ACTING 30 MG TABLET.SA PO SCH ×3 (06:08→21:14)
[2022-02-06] MEDS: GABAPENTIN 300 MG CAPSULE PO SCH ×3 (06:09→21:15)
[2022-02-06] MEDS: FUROSEMIDE 20 MG TABLET (FP) PO SCH (09:19)
[2022-02-06] MEDS: CITALOPRAM HYDROBROMIDE 20 MG TABLET PO SCH (09:19)
[2022-02-06] MEDS: amLODIPine BESYLATE 5 MG TABLET (FP) PO SCH (09:19)
[2022-02-06] MEDS: ACETAMINOPHEN 325 MG TABLET (FP) PO PRN (09:20)
[2022-02-06] MEDS ORDERED: ENZALUTAMIDE PO SCH (10:00)
[2022-02-06 10:19] LABS: BASO % 0.2 % (0-2.0); EOS % 1.7 % (0-4.5); HEMATOCRIT 36.6 % (35.4-49); HEMOGLOBIN 12.1 GM/dL (11.7-16.9); MCH 29.4 pg (25.7-33.7); MCHC 33.2 g/dl (32.0-35.9); MEAN CELL VOLUME 88.6 fl (80-96); MEAN PLT VOLUME 7.5 fl (7.5-11.1); MONO % 10.6 % (3.8-10.2); NEUT % 70.5 % (42.8-82.8); PLATELET COUNT 283 10^3/uL (134-434); RBC 4.14 M/mm3 (4.00-5.60); RDW 14.7 % (11.9-15.9); WHITE BLOOD COUNT 7.6 K/mm3 (4.0-10.0)
[2022-02-06 10:47] LABS: CALCIUM 8.1 mg/dL (8.5-10.1)
[2022-02-06 10:48] LABS: BLOOD UREA NITROGEN 9.2 mg/dL (7-18)
[2022-02-06] MEDS ORDERED: ceFAZolin SODIUM 1 GM VIAL ONE ×2 (10:48→16:47)
[2022-02-06] MEDS ORDERED: DEXTROSE 5%-WATER - 50 ML IVPB ONE ×2 (10:48→16:47)
[2022-02-06] MEDS: CEFAZOLIN 1 GM in DEXTROSE 5%-WATER - 50 ML IVPB SCH ×2 (10:49→17:12)
[2022-02-06 10:51] LABS: CREATININE 0.6 mg/dL (0.55-1.3)
[2022-02-06 10:52] LABS: BILIRUBIN,TOTAL 0.6 mg/dL (0.2-1); TOT PROT 5.8 g/dl (6.4-8.2)
[2022-02-06] MEDS ORDERED: TAMSULOSIN HCL 0.4 MG CAP PO ONE (12:49)
[2022-02-07] MEDS: ACETAMINOPHEN 325 MG TABLET (FP) PO PRN (00:14)
[2022-02-07] MEDS ORDERED: DEXTROSE 5%-WATER - 50 ML IVPB ONE ×2 (01:11→09:51)
[2022-02-07] MEDS ORDERED: ceFAZolin SODIUM 1 GM VIAL ONE ×2 (01:11→09:51)
[2022-02-07] MEDS: CEFAZOLIN 1 GM in DEXTROSE 5%-WATER - 50 ML IVPB SCH ×2 (01:39→09:59)
[2022-02-07 02:03] LABS: EPI CELLS 28 /uL (0-25.1); HYALINE CASTS 1 /uL (0-3.1); URINE APPEARANCE CLEAR; URINE BACTERIA 37 /uL (0-1359); URINE BILIRUBIN NEGATIVE (NEGATIVE); URINE COLOR YELLOW; URINE GLUCOSE (UA) NEGATIVE (NEGATIVE); URINE KETONE NEGATIVE (NEGATIVE); URINE LEUK ESTERASE 1+ (NEGATIVE); URINE NITRITE NEGATIVE (NEGATIVE); URINE PROTEIN 1+ (NEGATIVE); URINE RBC 1867 /uL (0-23.9); URINE WBC 54 /uL (0-25.8)
[2022-02-07] MEDS: morphine SO4 SUSTAINED ACTING 30 MG TABLET.SA PO SCH (06:00)
[2022-02-07] MEDS: GABAPENTIN 300 MG CAPSULE PO SCH (06:01)
[2022-02-07] MEDS ORDERED: TAMSULOSIN HCL 0.4 MG CAP PO SCH (08:30)
[2022-02-07 09:13] LABS: BASO % 0.4 % (0-2.0); EOS % 2.8 % (0-4.5); HEMATOCRIT 38.4 % (35.4-49); HEMOGLOBIN 13.1 GM/dL (11.7-16.9); LYMPH % 24.2 % (8-40); MCH 29.8 pg (25.7-33.7); MEAN CELL VOLUME 87.8 fl (80-96); MONO % 11.7 % (3.8-10.2); NEUT % 60.9 % (42.8-82.8); PLATELET COUNT 277 10^3/uL (134-434); RBC 4.38 M/mm3 (4.00-5.60); RDW 14.9 % (11.9-15.9); WHITE BLOOD COUNT 7.5 K/mm3 (4.0-10.0)
[2022-02-07] MEDS: CITALOPRAM HYDROBROMIDE 20 MG TABLET PO SCH (09:59)
[2022-02-07] MEDS: amLODIPine BESYLATE 5 MG TABLET (FP) PO SCH (09:59)
[2022-02-07] MEDS: FUROSEMIDE 20 MG TABLET (FP) PO SCH (09:59)
[2022-02-07 11:20] LABS: ALBUMIN 3.5 g/dl (3.4-5.0); BILIRUBIN,TOTAL 0.3 mg/dL (0.2-1); BLOOD UREA NITROGEN 11.9 mg/dL (7-18); CALCIUM 8.6 mg/dL (8.5-10.1); CREATININE 0.7 mg/dL (0.55-1.3); MAGNESIUM 2.6 mg/dL (1.8-2.4); PHOSPHOROUS 3.7 mg/dL (2.5-4.9); TOT PROT 6.5 g/dl (6.4-8.2)
[2022-02-07 13:41] VITALS: BP 138/68; PULSE 85; TEMP 97.7
== END 2022-02-07 14:42 | disposition home or self-care (01) | DRG 466 ==
LOC: JER 07:17 → JERBED 10:00 → J6S 14:31
PROVIDERS: ADMIT Internal Medicine; ATTEND Internal Medicine
DX: T83.098A Other mechanical complication of other urinary catheter, initial encounter (principal); E66.01 Morbid (severe) obesity due to excess calories; Z68.39 Body mass index [BMI] 39.0-39.9, adult; N39.0 Urinary tract infection, site not specified; C61 Malignant neoplasm of prostate; C79.51 Secondary malignant neoplasm of bone; L03.311 Cellulitis of abdominal wall; Y84.8 Other medical procedures as the cause of abnormal reaction of the patient, or of later complication, without mention of misadventure at the time of the procedure; G89.3 Neoplasm related pain (acute) (chronic); I10 Essential (primary) hypertension; R33.8 Other retention of urine; N40.0 Benign prostatic hyperplasia without lower urinary tract symptoms; F32.A Depression, unspecified; M54.50 Low back pain, unspecified; D18.09 Hemangioma of other sites; B35.6 Tinea cruris; N62 Hypertrophy of breast; N28.1 Cyst of kidney, acquired; N50.89 Other specified disorders of the male genital organs; K42.9 Umbilical hernia without obstruction or gangrene
CPT/HCPCS: 36415; 74177-TC; 80053; 81003; 82962; 83036; 83605; 83735; 84100; 85025; 85610; 85730; 86850; 86900; 86901; 87040; 87086; 93005; 93010; 99285-25; C9803-CS; Q9967; U0003; U0005

== ENCOUNTER 2022-02-22 08:23 | Emergency (ER) | payer OTHER ==
[2022-02-22 08:43] VITALS: TEMP 97.6; BMI 38.7
[2022-02-22 10:56] LABS: HEMATOCRIT 36.9 % (35.4-49); HEMOGLOBIN 12.4 GM/dL (11.7-16.9); MCH 29.1 pg (25.7-33.7); MCHC 33.6 g/dl (32.0-35.9); MEAN CELL VOLUME 86.4 fl (80-96); MEAN PLT VOLUME 6.4 fl (7.5-11.1); PLATELET COUNT 317 10^3/uL (134-434); RBC 4.27 M/mm3 (4.00-5.60); RDW 14.6 % (11.9-15.9); WHITE BLOOD COUNT 7.2 K/mm3 (4.0-10.0)
[2022-02-22 10:59] LABS: EPI CELLS 1 /uL (0-25.1); HYALINE CASTS 2 /uL (0-3.1); PH,URINE 5.5 (5.0-8.0); URINE APPEARANCE CLEAR; URINE BACTERIA 1847 /uL (0-1359); URINE BILIRUBIN NEGATIVE (NEGATIVE); URINE COLOR YELLOW; URINE GLUCOSE (UA) NEGATIVE (NEGATIVE); URINE KETONE NEGATIVE (NEGATIVE); URINE LEUK ESTERASE 3+ (NEGATIVE); URINE NITRITE NEGATIVE (NEGATIVE); URINE PROTEIN 1+ (NEGATIVE); URINE RBC 19 /uL (0-23.9); URINE UROBILINOGEN 0.2 mg/dL (0.2-1.0); URINE WBC 277 /uL (0-25.8)
[2022-02-22 11:16] LABS: CALCIUM 8.6 mg/dL (8.5-10.1)
[2022-02-22 11:17] LABS: ALBUMIN 3.2 g/dl (3.4-5.0); BLOOD UREA NITROGEN 13.2 mg/dL (7-18)
[2022-02-22 11:20] LABS: CREATININE 1.1 mg/dL (0.55-1.3)
[2022-02-22 11:21] LABS: BILIRUBIN,TOTAL 0.3 mg/dL (0.2-1); TOT PROT 6.4 g/dl (6.4-8.2)
[2022-02-22] MEDS ORDERED: CEPHALEXIN MONOHYDRATE 500 MG CAPSULE (UD) PO ONE (11:33)
[2022-02-22] MEDS ORDERED: CEPHALEXIN MONOHYDRATE 500 MG CAPSULE (UD) ONE (11:44)
[2022-02-22 15:48] VITALS: BP 115/69; PULSE 56
== END 2022-02-22 13:11 | disposition home or self-care (01) ==
LOC: JER 08:23
DX: R33.8 Other retention of urine (principal); T83.9XXA Unspecified complication of genitourinary prosthetic device, implant and graft, initial encounter
CPT/HCPCS: 36415; 80053; 81003; 85027; 87086; 87186; 99283-25

== ENCOUNTER 2022-02-23 05:10 | Emergency (ER) | payer OTHER ==
[2022-02-23 05:37] VITALS: BP 155/70; PULSE 65; TEMP 97.8; BMI 38.7
[2022-02-23 08:24] LABS: EPI CELLS 27 /uL (0-25.1); HYALINE CASTS 0 /uL (0-3.1); PH,URINE 5.5 (5.0-8.0); URINE APPEARANCE CLEAR; URINE BACTERIA 138 /uL (0-1359); URINE BILIRUBIN NEGATIVE (NEGATIVE); URINE COLOR YELLOW; URINE GLUCOSE (UA) NEGATIVE (NEGATIVE); URINE KETONE NEGATIVE (NEGATIVE); URINE LEUK ESTERASE 2+ (NEGATIVE); URINE NITRITE NEGATIVE (NEGATIVE); URINE PROTEIN TRACE (NEGATIVE); URINE RBC 36 /uL (0-23.9); URINE UROBILINOGEN 0.2 mg/dL (0.2-1.0); URINE WBC 99 /uL (0-25.8)
== END 2022-02-23 10:55 | disposition home or self-care (01) ==
LOC: JER 05:10
DX: T83.091A Other mechanical complication of indwelling urethral catheter, initial encounter (principal)
CPT/HCPCS: 81003; 87086; 87186; 99283-25

== ENCOUNTER 2022-03-07 00:44 | Emergency (ER) | payer OTHER ==
[2022-03-07 01:17] VITALS: BP 139/74; PULSE 86; TEMP 97.8; BMI 38.7
[2022-03-07 01:28] LABS: EPI CELLS 4 /uL (0-25.1); HYALINE CASTS 1 /uL (0-3.1); PH,URINE 5.5 (5.0-8.0); URINE APPEARANCE TURBID; URINE BACTERIA 3641 /uL (0-1359); URINE BILIRUBIN NEGATIVE (NEGATIVE); URINE COLOR DK YELLOW; URINE GLUCOSE (UA) NEGATIVE (NEGATIVE); URINE KETONE NEGATIVE (NEGATIVE); URINE LEUK ESTERASE 3+ (NEGATIVE); URINE NITRITE NEGATIVE (NEGATIVE); URINE PROTEIN 3+ (NEGATIVE); URINE UROBILINOGEN 0.2 mg/dL (0.2-1.0); URINE WBC 4175 /uL (0-25.8)
[2022-03-07] MEDS ORDERED: NITROFURANTOIN MACROCRYSTAL 50 MG CAPSULE (FP) PO ONE (01:45)
[2022-03-07] MEDS ORDERED: NITROFURANTOIN MACROCRYSTAL 50 MG CAPSULE (FP) ONE (01:45)
[2022-03-07] MEDS ORDERED: BACITRACIN 0.9 GM PACKET ONE (02:07)
[2022-03-07 04:33] LABS: URINE RBC 434.7 /uL (0-23.9); YEAST NONE SEEN (NEGATIVE)
== END 2022-03-07 02:14 | disposition home or self-care (01) ==
LOC: JER 00:44
DX: T83.9XXA Unspecified complication of genitourinary prosthetic device, implant and graft, initial encounter (principal); T83.511A Infection and inflammatory reaction due to indwelling urethral catheter, initial encounter
CPT/HCPCS: 81003; 87086; 87186; 99283-25

== ENCOUNTER 2023-02-17 12:02 | Observation (INO) | payer OTHER ==
[2023-02-17 13:37] LABS: HEMATOCRIT 31.9 % (35.4-49); HEMOGLOBIN 11.3 GM/dL (11.7-16.9); MCH 31.6 pg (25.7-33.7); MCHC 35.4 g/dl (32.0-35.9); MEAN CELL VOLUME 89.2 fl (80-96); MEAN PLT VOLUME 6.4 fl (7.5-11.1); PLATELET COUNT 158 10^3/uL (134-434); RBC 3.57 M/mm3 (4.00-5.60); RDW 22.3 % (11.9-15.9); WHITE BLOOD COUNT 5.8 K/mm3 (4.0-10.0)
[2023-02-17 13:43] LABS: INR 1.19 (0.83-1.09); PROTHROMBIN TIME (PATIENT) 13.8 SEC (9.7-13.0)
[2023-02-17 13:45] LABS: ACTIVATED PTT 24.8 SECONDS (25.2-36.5); URINE APPEARANCE CLEAR; URINE BILIRUBIN NEGATIVE (NEGATIVE); URINE COLOR YELLOW; URINE GLUCOSE (UA) NEGATIVE (NEGATIVE); URINE KETONE NEGATIVE (NEGATIVE); URINE LEUK ESTERASE NEGATIVE (NEGATIVE); URINE NITRITE NEGATIVE (NEGATIVE); URINE PROTEIN NEGATIVE (NEGATIVE); URINE UROBILINOGEN 0.2 mg/dL (0.2-1.0)
[2023-02-17 14:01] LABS: CHLORIDE 88 mmol/L (98-107); SODIUM 134 mmol/L (136-145)
[2023-02-17 14:03] LABS: CALCIUM 9.2 mg/dL (8.5-10.1)
[2023-02-17 14:04] LABS: ANION GAP 9 MMOL/L (8-16); BLOOD UREA NITROGEN 45.5 mg/dL (7-18); CO2 37 mmol/L (21-32); GLUCOSE,RANDOM 117 mg/dL (74-106); MAGNESIUM 2.2 mg/dL (1.8-2.4)
[2023-02-17 14:07] LABS: CREATININE 1.3 mg/dL (0.55-1.3); SGOT/AST 71 U/L (15-37); SGPT/ALT 79 U/L (13-61)
[2023-02-17] MEDS ORDERED: POTASSIUM CHLORIDE TABS 20 MEQ TABLET.ER (FP) PO ONE ×3 (14:07→14:39)
[2023-02-17 14:08] LABS: TOT PROT 5.6 g/dl (6.4-8.2)
[2023-02-17 14:09] LABS: BILIRUBIN,TOTAL 0.6 mg/dL (0.2-1)
[2023-02-17 14:10] LABS: ALK PHOS 126 U/L (45-117)
[2023-02-17 14:12] LABS: N-TERMINAL BNP 625.5 pg/ml (5-125)
[2023-02-17 14:51] LABS: ANISOCYTOSIS 0; HELMET CELLS 0; HOWELL-JOLLY BODIES 0; MACROCYTOSIS 0; OVALOCYTE 0; ROULEAU 0; SICKELED CELLS 0; TARGET CELLS 0; TEAR DROP CELLS 0; TOXIC GRANULATION 0
[2023-02-17] MEDS ORDERED: FUROSEMIDE 40 MG/4 ML INJECTABLE VIAL IVPUSH ONE ×2 (15:03→15:26)
[2023-02-17] MEDS ORDERED: ASPIRIN 81 MG CHEWABLE TABLETS PO ONE (15:24)
[2023-02-17] MEDS ORDERED: FUROSEMIDE 40 MG/4 ML INJECTABLE VIAL ONE (15:29)
[2023-02-17] MEDS ORDERED: ASPIRIN 81 MG CHEWABLE TABLETS ONE (15:29)
[2023-02-17] MEDS ORDERED: ACETAMINOPHEN 325 MG TABLET (FP) PO PRN (16:35)
[2023-02-17] MEDS ORDERED: POTASSIUM CHLORIDE ORAL LIQUID 20 MEQ/15 ML ONE (16:35)
[2023-02-17] MEDS ORDERED: POTASSIUM CHLORIDE ORAL LIQUID 20 MEQ/15 ML PO ONE (18:00)
[2023-02-17] MEDS ORDERED: DEXAMETHASONE 4 MG TABLET (FP) ONE (22:52)
[2023-02-17] MEDS ORDERED: CYCLOBENZAPRINE HCL 5 MG TABLET ONE (22:53)
[2023-02-17] MEDS: DEXAMETHASONE 2 MG TABLET PO SCH (23:06)
[2023-02-17] MEDS: CYCLOBENZAPRINE HCL 5 MG TABLET PO SCH (23:06)
[2023-02-18 01:05] VITALS: BMI 30.7
[2023-02-18 07:17] LABS: BASO % 0.1 % (0-2.0); EOS % 0.1 % (0-4.5); HEMATOCRIT 29.7 % (35.4-49); HEMOGLOBIN 10.7 GM/dL (11.7-16.9); LYMPH % 6.2 % (8-40); MCHC 35.9 g/dl (32.0-35.9); MEAN PLT VOLUME 6.4 fl (7.5-11.1); MONO % 6.6 % (3.8-10.2); PLATELET COUNT 123 10^3/uL (134-434); RBC 3.33 M/mm3 (4.00-5.60); RDW 21.9 % (11.9-15.9); WHITE BLOOD COUNT 3.8 K/mm3 (4.0-10.0)
[2023-02-18 07:31] LABS: CHLORIDE 91 mmol/L (98-107); SODIUM 135 mmol/L (136-145)
[2023-02-18 07:33] LABS: ALBUMIN 2.6 g/dl (3.4-5.0); CALCIUM 8.4 mg/dL (8.5-10.1)
[2023-02-18 07:34] LABS: BLOOD UREA NITROGEN 26.4 mg/dL (7-18); CO2 37 mmol/L (21-32); GLUCOSE,RANDOM 140 mg/dL (74-106); MAGNESIUM 2.1 mg/dL (1.8-2.4)
[2023-02-18 07:36] LABS: CREATININE 0.7 mg/dL (0.55-1.3)
[2023-02-18 07:37] LABS: PHOSPHOROUS 3.3 mg/dL (2.5-4.9); SGOT/AST 51 U/L (15-37); SGPT/ALT 68 U/L (13-61)
[2023-02-18 07:38] LABS: BILIRUBIN,TOTAL 0.5 mg/dL (0.2-1)
[2023-02-18 07:39] LABS: ALK PHOS 107 U/L (45-117)
[2023-02-18 07:47] LABS: ANION GAP 7 MMOL/L (8-16)
[2023-02-18] MEDS: TAMSULOSIN HCL 0.4 MG CAP PO SCH (08:01)
[2023-02-18] MEDS: oxyCODONE HCL 5 MG TABLET PO PRN (08:23)
[2023-02-18] MEDS: KCL 10 MEQ IVPB 10 MEQ/100 ML INFUS.BAG IVPB SCH ×3 (08:27→11:30)
[2023-02-18] MEDS ORDERED: POTASSIUM CHLORIDE ORAL LIQUID 20 MEQ/15 ML PO ONE (09:00)
[2023-02-18] MEDS: CITALOPRAM HYDROBROMIDE 20 MG TABLET PO SCH (09:49)
[2023-02-18] MEDS: FUROSEMIDE 40 MG/4 ML INJECTABLE VIAL IVPUSH SCH (09:50)
[2023-02-18] MEDS: CYCLOBENZAPRINE HCL 5 MG TABLET PO SCH ×2 (09:50→21:23)
[2023-02-18] MEDS: DEXAMETHASONE 2 MG TABLET PO SCH ×2 (09:50→21:23)
[2023-02-18] MEDS: NYSTATIN POWDER 100,000 UNITS/GM - 15 GM TOPICAL POWDER TP SCH ×2 (09:51→21:24)
[2023-02-18] MEDS: POTASSIUM CHLORIDE ORAL LIQUID 20 MEQ/15 ML PO SCH ×2 (09:52→21:23)
[2023-02-18] MEDS ORDERED: MELOXICAM 15 MG TABLET PO SCH ×2 (10:00)
[2023-02-18] MEDS: morphine SO4 SUSTAINED ACTING 30 MG TABLET.SA PO SCH ×2 (16:14→21:23)
[2023-02-18 19:33] LABS: CHLORIDE 89 mmol/L (98-107); SODIUM 133 mmol/L (136-145)
[2023-02-18 19:34] LABS: CALCIUM 8.3 mg/dL (8.5-10.1)
[2023-02-18 19:35] LABS: ALBUMIN 2.8 g/dl (3.4-5.0); BLOOD UREA NITROGEN 18.2 mg/dL (7-18); CO2 37 mmol/L (21-32); GLUCOSE,RANDOM 124 mg/dL (74-106)
[2023-02-18 19:38] LABS: CREATININE 0.7 mg/dL (0.55-1.3); SGOT/AST 43 U/L (15-37); SGPT/ALT 67 U/L (13-61)
[2023-02-18 19:40] LABS: BILIRUBIN,TOTAL 0.7 mg/dL (0.2-1); TOT PROT 5.4 g/dl (6.4-8.2)
[2023-02-18 19:41] LABS: ALK PHOS 109 U/L (45-117)
[2023-02-18 20:01] LABS: ANION GAP 6 MMOL/L (8-16)
[2023-02-18] MEDS ORDERED: ONDANSETRON 4 MG/2 ML VIAL IVPUSH ONE (21:55)
[2023-02-19] MEDS: oxyCODONE HCL 5 MG TABLET PO PRN (00:30)
[2023-02-19] MEDS: morphine SO4 SUSTAINED ACTING 30 MG TABLET.SA PO SCH ×3 (06:20→21:50)
[2023-02-19] MEDS: TAMSULOSIN HCL 0.4 MG CAP PO SCH (10:13)
[2023-02-19] MEDS: POTASSIUM CHLORIDE ORAL LIQUID 20 MEQ/15 ML PO SCH ×2 (10:13→21:51)
[2023-02-19] MEDS: FUROSEMIDE 40 MG/4 ML INJECTABLE VIAL IVPUSH SCH (10:13)
[2023-02-19] MEDS: CYCLOBENZAPRINE HCL 5 MG TABLET PO SCH ×2 (10:13→21:50)
[2023-02-19] MEDS: CITALOPRAM HYDROBROMIDE 20 MG TABLET PO SCH (10:13)
[2023-02-19] MEDS: DEXAMETHASONE 2 MG TABLET PO SCH ×2 (10:13→21:50)
[2023-02-19] MEDS: NYSTATIN POWDER 100,000 UNITS/GM - 15 GM TOPICAL POWDER TP SCH ×2 (10:16→22:04)
[2023-02-19 10:29] LABS: CHLORIDE 90 mmol/L (98-107); SODIUM 136 mmol/L (136-145)
[2023-02-19 10:32] LABS: BLOOD UREA NITROGEN 12.4 mg/dL (7-18); CALCIUM 7.9 mg/dL (8.5-10.1)
[2023-02-19 10:33] LABS: ALBUMIN 2.7 g/dl (3.4-5.0); CO2 37 mmol/L (21-32); GLUCOSE,RANDOM 111 mg/dL (74-106)
[2023-02-19 10:36] LABS: CREATININE 0.6 mg/dL (0.55-1.3); SGOT/AST 42 U/L (15-37); SGPT/ALT 62 U/L (13-61)
[2023-02-19 10:37] LABS: BILIRUBIN,TOTAL 1.2 mg/dL (0.2-1); TOT PROT 5.4 g/dl (6.4-8.2)
[2023-02-19 10:39] LABS: ALK PHOS 115 U/L (45-117)
[2023-02-19 10:46] LABS: ANION GAP 9 MMOL/L (8-16)
[2023-02-19] MEDS: KCL 10 MEQ IVPB 10 MEQ/100 ML INFUS.BAG IVPB SCH ×3 (11:15→14:51)
[2023-02-20] MEDS: morphine SO4 SUSTAINED ACTING 30 MG TABLET.SA PO SCH ×3 (06:33→21:09)
[2023-02-20 08:20] LABS: HEMATOCRIT 33.3 % (35.4-49); HEMOGLOBIN 11.8 GM/dL (11.7-16.9); MCHC 35.5 g/dl (32.0-35.9); MEAN CELL VOLUME 90.3 fl (80-96); MEAN PLT VOLUME 6.5 fl (7.5-11.1); PLATELET COUNT 170 10^3/uL (134-434); RBC 3.69 M/mm3 (4.00-5.60); RDW 22.7 % (11.9-15.9); WHITE BLOOD COUNT 4.7 K/mm3 (4.0-10.0)
[2023-02-20 08:43] LABS: ALBUMIN 2.7 g/dl (3.4-5.0); BLOOD UREA NITROGEN 16.3 mg/dL (7-18)
[2023-02-20 08:48] LABS: BILIRUBIN,TOTAL 1.2 mg/dL (0.2-1); TOT PROT 5.7 g/dl (6.4-8.2)
[2023-02-20 08:49] LABS: CREATININE 0.6 mg/dL (0.55-1.3)
[2023-02-20] MEDS: CYCLOBENZAPRINE HCL 5 MG TABLET PO SCH ×2 (09:30→21:10)
[2023-02-20] MEDS: CITALOPRAM HYDROBROMIDE 20 MG TABLET PO SCH (09:30)
[2023-02-20] MEDS: TAMSULOSIN HCL 0.4 MG CAP PO SCH (09:30)
[2023-02-20] MEDS: FUROSEMIDE 40 MG/4 ML INJECTABLE VIAL IVPUSH SCH (09:31)
[2023-02-20] MEDS: KCL 10 MEQ IVPB 10 MEQ/100 ML INFUS.BAG IVPB SCH ×3 (09:31→11:22)
[2023-02-20] MEDS: POTASSIUM CHLORIDE ORAL LIQUID 20 MEQ/15 ML PO SCH ×2 (09:31→21:11)
[2023-02-20] MEDS: DEXAMETHASONE 2 MG TABLET PO SCH ×2 (09:31→21:10)
[2023-02-20] MEDS: NYSTATIN POWDER 100,000 UNITS/GM - 15 GM TOPICAL POWDER TP SCH ×2 (09:33→22:00)
[2023-02-20] MEDS ORDERED: POTASSIUM CHLORIDE ORAL LIQUID 20 MEQ/15 ML PO SCH (10:00)
[2023-02-20] MEDS ORDERED: SODIUM CHLORIDE 1 GM TABLET PO ONE (10:24)
[2023-02-20] MEDS ORDERED: IBUPROFEN 400 MG TABLET (FP) PO ONE ×2 (10:51)
[2023-02-20] MEDS: SODIUM CHLORIDE 1 GM TABLET PO SCH (11:22)
[2023-02-20 16:03] VITALS: RESP 20
[2023-02-21 06:15] VITALS: BP 137/73; PULSE 82; TEMP 97.7
[2023-02-21] MEDS: morphine SO4 SUSTAINED ACTING 30 MG TABLET.SA PO SCH (06:35)
[2023-02-21 07:22] LABS: HEMATOCRIT 35.4 % (35.4-49); HEMOGLOBIN 12.5 GM/dL (11.7-16.9); MCH 31.7 pg (25.7-33.7); MCHC 35.3 g/dl (32.0-35.9); MEAN CELL VOLUME 89.8 fl (80-96); MEAN PLT VOLUME 6.6 fl (7.5-11.1); PLATELET COUNT 195 10^3/uL (134-434); RBC 3.94 M/mm3 (4.00-5.60); RDW 23.1 % (11.9-15.9); WHITE BLOOD COUNT 4.5 K/mm3 (4.0-10.0)
[2023-02-21 07:44] LABS: CALCIUM 8.1 mg/dL (8.5-10.1)
[2023-02-21 07:45] LABS: ALBUMIN 2.9 g/dl (3.4-5.0); BLOOD UREA NITROGEN 19.7 mg/dL (7-18)
[2023-02-21 07:48] LABS: CREATININE 0.7 mg/dL (0.55-1.3)
[2023-02-21 07:50] LABS: BILIRUBIN,TOTAL 1.1 mg/dL (0.2-1); TOT PROT 5.9 g/dl (6.4-8.2)
[2023-02-21] MEDS: TAMSULOSIN HCL 0.4 MG CAP PO SCH (09:11)
[2023-02-21] MEDS: SODIUM CHLORIDE 1 GM TABLET PO SCH (09:11)
[2023-02-21] MEDS: CYCLOBENZAPRINE HCL 5 MG TABLET PO SCH (09:11)
[2023-02-21] MEDS: POTASSIUM CHLORIDE ORAL LIQUID 20 MEQ/15 ML PO SCH (09:11)
[2023-02-21] MEDS: CITALOPRAM HYDROBROMIDE 20 MG TABLET PO SCH (09:11)
[2023-02-21] MEDS: DEXAMETHASONE 2 MG TABLET PO SCH (09:12)
[2023-02-21] MEDS: FUROSEMIDE 40 MG/4 ML INJECTABLE VIAL IVPUSH SCH (09:12)
== END 2023-02-21 09:30 | disposition home or self-care (01) ==
LOC: JER 12:02 → JERBED 14:20 → J4W 02-18 01:14
PROVIDERS: ADMIT Internal Medicine; ATTEND Internal Medicine
PROC: 3E033NZ Introduction of Analgesics, Hypnotics, Sedatives into Peripheral Vein, Percutaneous Approach (ICD-10-PCS; principal; 2023-02-17)
PROC: 3E033GC Introduction of Other Therapeutic Substance into Peripheral Vein, Percutaneous Approach (ICD-10-PCS; 2023-02-17)
DX: E87.6 Hypokalemia (principal); Z59.00 Homelessness unspecified; I10 Essential (primary) hypertension; E78.5 Hyperlipidemia, unspecified; E11.9 Type 2 diabetes mellitus without complications; Z85.46 Personal history of malignant neoplasm of prostate; R94.31 Abnormal electrocardiogram [ECG] [EKG]; Z88.8 Allergy status to other drugs, medicaments and biological substances; Z88.0 Allergy status to penicillin; J30.81 Allergic rhinitis due to animal (cat) (dog) hair and dander; Z88.6 Allergy status to analgesic agent
CPT/HCPCS: 0241U-QW; 36415; 70450-TC; 71045-TC-FY; 72170-TC-FY; 80053; 81003; 83735; 83880; 84100; 84484; 85025; 85027; 85610; 85730; 87086; 93005; 93010; 93306-TC; 93970-TC; 96365; 96375; 97116-GP; 97162-GP; 99285-25; G0378

== ENCOUNTER 2023-03-07 08:49 | Inpatient (IN) | payer OTHER ==
[2023-03-07 09:34] LABS: HEMATOCRIT 25.4 % (35.4-49); MCH 31.8 pg (25.7-33.7); MCHC 35.6 g/dl (32.0-35.9); MEAN CELL VOLUME 89.3 fl (80-96); MEAN PLT VOLUME 7.3 fl (7.5-11.1); PLATELET COUNT 147 10^3/uL (134-434); RBC 2.84 M/mm3 (4.00-5.60); RDW 23.7 % (11.9-15.9); WHITE BLOOD COUNT 2.5 K/mm3 (4.0-10.0)
[2023-03-07 09:44] LABS: INR 1.4 (0.83-1.09); PROTHROMBIN TIME (PATIENT) 16.2 SEC (9.7-13.0)
[2023-03-07 09:46] LABS: ACTIVATED PTT 27.2 SECONDS (25.2-36.5)
[2023-03-07 10:18] LABS: POTASSIUM 4.4 mmol/L (3.5-5.1)
[2023-03-07 10:22] LABS: BLOOD UREA NITROGEN 14.2 mg/dL (7-18); MAGNESIUM 1.8 mg/dL (1.8-2.4)
[2023-03-07 10:24] LABS: CREATININE 0.8 mg/dL (0.55-1.3)
[2023-03-07 10:26] LABS: BILIRUBIN,TOTAL 1.2 mg/dL (0.2-1); TOT PROT 5.1 g/dl (6.4-8.2)
[2023-03-07 10:27] LABS: ANISOCYTOSIS 3+; MACROCYTOSIS 0
[2023-03-07 10:30] LABS: N-TERMINAL BNP 1298.3 pg/ml (5-125)
[2023-03-07] MEDS ORDERED: FUROSEMIDE 40 MG/4 ML INJECTABLE VIAL IVPUSH ONE ×2 (11:09→17:00)
[2023-03-07] MEDS ORDERED: FUROSEMIDE 40 MG/4 ML INJECTABLE VIAL ONE ×2 (11:17→16:10)
[2023-03-07 13:13] LABS: PH,URINE 6.5 (5.0-8.0); URINE APPEARANCE CLEAR; URINE BILIRUBIN NEGATIVE (NEGATIVE); URINE COLOR YELLOW; URINE GLUCOSE (UA) NEGATIVE (NEGATIVE); URINE KETONE TRACE (NEGATIVE); URINE LEUK ESTERASE NEGATIVE (NEGATIVE); URINE NITRITE NEGATIVE (NEGATIVE); URINE PROTEIN NEGATIVE (NEGATIVE)
[2023-03-07] MEDS ORDERED: MELOXICAM 15 MG TABLET PO PRN (14:30)
[2023-03-07] MEDS: INSULIN (NOVOLOG) ASPART 100 UNITS/ML 10ML VIAL SQ SCH ×2 (15:41→21:14)
[2023-03-07] MEDS ORDERED: DEXTROSE 5%-WATER 100 ML IVPB ONE (16:09)
[2023-03-07] MEDS ORDERED: DOXYCYCLINE HYCLATE 100 MG VIAL ONE (16:09)
[2023-03-07] MEDS: DOXYCYCLINE INJECTION 100 MG in DEXTROSE 5%-WATER 100 ML IVPB SCH ×2 (16:21→23:17)
[2023-03-07] MEDS ORDERED: METOPROLOL TARTRATE 50 MG TABLET (FP) ONE (21:15)
[2023-03-07] MEDS ORDERED: GABAPENTIN 300 MG CAPSULE ONE (21:15)
[2023-03-07] MEDS ORDERED: ENOXAPARIN NA (PORCINE) 100 MG/1 ML DISP.SYRIN SQ ONE (21:16)
[2023-03-07] MEDS: ENOXAPARIN NA (PORCINE) 100 MG/1 ML DISP.SYRIN SQ SCH (21:26)
[2023-03-07] MEDS: GABAPENTIN 300 MG CAPSULE PO SCH (21:26)
[2023-03-07] MEDS: METOPROLOL TARTRATE 50 MG TABLET (FP) PO SCH (21:26)
[2023-03-08] MEDS: GABAPENTIN 300 MG CAPSULE PO SCH ×3 (06:10→22:38)
[2023-03-08] MEDS: FUROSEMIDE 40 MG/4 ML INJECTABLE VIAL IVPUSH SCH ×2 (06:10→14:10)
[2023-03-08] MEDS: INSULIN SLIDING SCALE (NOVOLOG) 1 VIAL SQ SCH ×4 (06:45→22:38)
[2023-03-08 07:30] LABS: HEMATOCRIT 24.7 % (35.4-49); HEMOGLOBIN 9.2 GM/dL (11.7-16.9); MCH 32.7 pg (25.7-33.7); MCHC 37.1 g/dl (32.0-35.9); MEAN PLT VOLUME 7.7 fl (7.5-11.1); PLATELET COUNT 172 10^3/uL (134-434); RBC 2.81 M/mm3 (4.00-5.60); RDW 23.7 % (11.9-15.9); WHITE BLOOD COUNT 2.3 K/mm3 (4.0-10.0)
[2023-03-08 07:45] LABS: CHLORIDE 96 mmol/L (98-107); SODIUM 134 mmol/L (136-145)
[2023-03-08 07:47] LABS: BLOOD UREA NITROGEN 10.2 mg/dL (7-18); CO2 28 mmol/L (21-32)
[2023-03-08 07:48] LABS: ALBUMIN 1.9 g/dl (3.4-5.0); GLUCOSE,RANDOM 108 mg/dL (74-106); MAGNESIUM 1.5 mg/dL (1.8-2.4)
[2023-03-08 07:50] LABS: PHOSPHOROUS 1.8 mg/dL (2.5-4.9); SGPT/ALT 50 U/L (13-61)
[2023-03-08 07:51] LABS: CREATININE 0.5 mg/dL (0.55-1.3); SGOT/AST 76 U/L (15-37)
[2023-03-08 07:52] LABS: BILIRUBIN,TOTAL 1.1 mg/dL (0.2-1); TOT PROT 4.6 g/dl (6.4-8.2)
[2023-03-08 07:53] LABS: ALK PHOS 134 U/L (45-117)
[2023-03-08 07:56] LABS: ANION GAP 10 MMOL/L (8-16); CALCIUM 6.5 mg/dL (8.5-10.1); POTASSIUM 2.3 mmol/L (3.5-5.1)
[2023-03-08] MEDS ORDERED: NAPH,MB-DB/K PH,MBDB POWDER PACKET PO ONE (08:02)
[2023-03-08] MEDS ORDERED: POTASSIUM CHLORIDE ORAL LIQUID 20 MEQ/15 ML PO ONE (08:02)
[2023-03-08] MEDS ORDERED: MAGNESIUM 2GM/50ML STERILE WATER IVPB IVPB ONE (08:02)
[2023-03-08] MEDS: TAMSULOSIN HCL 0.4 MG CAP PO SCH (08:18)
[2023-03-08] MEDS: KCL 10 MEQ IVPB 10 MEQ/100 ML INFUS.BAG IVPB SCH ×6 (08:18→20:53)
[2023-03-08] MEDS: METOPROLOL TARTRATE 50 MG TABLET (FP) PO SCH ×2 (09:14→22:38)
[2023-03-08] MEDS: amLODIPine BESYLATE 5 MG TABLET (FP) PO SCH (09:14)
[2023-03-08] MEDS: ENOXAPARIN NA (PORCINE) 100 MG/1 ML DISP.SYRIN SQ SCH (09:14)
[2023-03-08] MEDS: DOXYCYCLINE INJECTION 100 MG in DEXTROSE 5%-WATER 100 ML IVPB SCH (09:16)
[2023-03-08] MEDS: CITALOPRAM HYDROBROMIDE 20 MG TABLET PO SCH (09:19)
[2023-03-08] MEDS ORDERED: ENOXAPARIN NA (PORCINE) 40 MG/0.4 ML DISP.SYRIN SQ SCH (10:00)
[2023-03-08 10:03] LABS: ANISOCYTOSIS 0; MACROCYTOSIS 0
[2023-03-08 17:53] LABS: CHLORIDE 95 mmol/L (98-107); SODIUM 132 mmol/L (136-145)
[2023-03-08 17:55] LABS: CO2 31 mmol/L (21-32); GLUCOSE,RANDOM 108 mg/dL (74-106)
[2023-03-08 17:59] LABS: ANION GAP 6 MMOL/L (8-16); CALCIUM 6.2 mg/dL (8.5-10.1); CREATININE 0.6 mg/dL (0.55-1.3); POTASSIUM 2.4 mmol/L (3.5-5.1)
[2023-03-08] MEDS ORDERED: POTASSIUM CHLORIDE TABS 20 MEQ TABLET.ER (FP) PO ONE (18:36)
[2023-03-09] MEDS: FUROSEMIDE 40 MG/4 ML INJECTABLE VIAL IVPUSH SCH ×3 (06:00→13:22)
[2023-03-09] MEDS: GABAPENTIN 300 MG CAPSULE PO SCH ×2 (06:29→13:24)
[2023-03-09] MEDS: INSULIN SLIDING SCALE (NOVOLOG) 1 VIAL SQ SCH (06:55)
[2023-03-09 07:46] LABS: HEMATOCRIT 23.1 % (35.4-49); HEMOGLOBIN 8.4 GM/dL (11.7-16.9); MCH 32.3 pg (25.7-33.7); MCHC 36.4 g/dl (32.0-35.9); MEAN CELL VOLUME 88.8 fl (80-96); MEAN PLT VOLUME 7.7 fl (7.5-11.1); PLATELET COUNT 206 10^3/uL (134-434); RDW 23.2 % (11.9-15.9)
[2023-03-09 08:11] LABS: CHLORIDE 99 mmol/L (98-107); SODIUM 135 mmol/L (136-145)
[2023-03-09 08:31] LABS: ALBUMIN 1.7 g/dl (3.4-5.0); SGPT/ALT 58 U/L (13-61)
[2023-03-09 08:33] LABS: BILIRUBIN,TOTAL 0.9 mg/dL (0.2-1); TOT PROT 4.3 g/dl (6.4-8.2)
[2023-03-09 08:34] LABS: BLOOD UREA NITROGEN 8.7 mg/dL (7-18); CO2 28 mmol/L (21-32); CREATININE 0.5 mg/dL (0.55-1.3); GLUCOSE,RANDOM 103 mg/dL (74-106); MAGNESIUM 1.6 mg/dL (1.8-2.4)
[2023-03-09 08:35] LABS: SGOT/AST 95 U/L (15-37)
[2023-03-09 08:36] LABS: ALK PHOS 126 U/L (45-117)
[2023-03-09 09:12] LABS: ANION GAP 8 MMOL/L (8-16); CALCIUM 6.2 mg/dL (8.5-10.1); PHOSPHOROUS 1.1 mg/dL (2.5-4.9); POTASSIUM 2.8 mmol/L (3.5-5.1)
[2023-03-09] MEDS ORDERED: NAPH,MB-DB/K PH,MBDB POWDER PACKET PO ONE (09:23)
[2023-03-09] MEDS: ENOXAPARIN NA (PORCINE) 40 MG/0.4 ML DISP.SYRIN SQ SCH (09:26)
[2023-03-09] MEDS: TAMSULOSIN HCL 0.4 MG CAP PO SCH (09:26)
[2023-03-09] MEDS: CALCIUM 500MG/VIT-D 200 UNITS COMBO TABLET (FP) PO SCH (09:26)
[2023-03-09] MEDS: METOPROLOL TARTRATE 50 MG TABLET (FP) PO SCH ×2 (09:26→21:01)
[2023-03-09] MEDS: CITALOPRAM HYDROBROMIDE 20 MG TABLET PO SCH (09:26)
[2023-03-09] MEDS: amLODIPine BESYLATE 5 MG TABLET (FP) PO SCH (09:26)
[2023-03-09] MEDS ORDERED: TRIMETHOBENZAMIDE HCL 200MG/2ML INJ IM ONE (09:27)
[2023-03-09 09:58] LABS: ANISOCYTOSIS 1+; MACROCYTOSIS 1+
[2023-03-09] MEDS ORDERED: POTASSIUM CHLORIDE TABS 20 MEQ TABLET.ER (FP) PO SCH ×2 (10:00→14:00)
[2023-03-09] MEDS: KCL 10 MEQ IVPB 10 MEQ/100 ML INFUS.BAG IVPB SCH ×6 (10:22→20:59)
[2023-03-09] MEDS ORDERED: TRIMETHOBENZAMIDE HCL 200MG/2ML INJ IM PRN (14:39)
[2023-03-09 15:33] LABS: CHLORIDE 96 mmol/L (98-107); SODIUM 133 mmol/L (136-145)
[2023-03-09 15:35] LABS: ANION GAP 8 MMOL/L (8-16); BLOOD UREA NITROGEN 9.8 mg/dL (7-18); CO2 29 mmol/L (21-32); GLUCOSE,RANDOM 117 mg/dL (74-106)
[2023-03-09 15:38] LABS: CALCIUM 6.3 mg/dL (8.5-10.1); CREATININE 0.5 mg/dL (0.55-1.3)
[2023-03-09] MEDS ORDERED: ONDANSETRON 4 MG/2 ML VIAL IVPUSH ONE (16:57)
[2023-03-09 17:30] LABS: MAGNESIUM 1.6 mg/dL (1.8-2.4)
[2023-03-09 17:34] LABS: PHOSPHOROUS 1.7 mg/dL (2.5-4.9)
[2023-03-09] MEDS ORDERED: MAGNESIUM SULF 50% (8.12 MEQ/2 ML-1 GM VIAL) IVPB ONE (18:36)
[2023-03-09] MEDS ORDERED: POTASSIUM PHOSPHATE 30 MM in SODIUM CHLORIDE 500 ML IVPB ONE (18:37)
[2023-03-09] MEDS ORDERED: SODIUM PHOSPHATE - 30 MM in SODIUM CHLORIDE 500 ML IVPB ONE (19:30)
[2023-03-09] MEDS ORDERED: SODIUM PHOSPHATE - 30 MM in SODIUM CHLORIDE 500 ML IV ONE (19:30)
[2023-03-09] MEDS ORDERED: MELOXICAM 15 MG TABLET PO PRN (19:32)
[2023-03-10 06:33] LABS: HEMOGLOBIN 8.6 GM/dL (11.7-16.9); MCH 31.9 pg (25.7-33.7); MCHC 35.9 g/dl (32.0-35.9); MEAN CELL VOLUME 88.8 fl (80-96); MEAN PLT VOLUME 7.8 fl (7.5-11.1); PLATELET COUNT 248 10^3/uL (134-434); RDW 23.8 % (11.9-15.9); WHITE BLOOD COUNT 3.9 K/mm3 (4.0-10.0)
[2023-03-10 06:56] LABS: CHLORIDE 97 mmol/L (98-107); SODIUM 133 mmol/L (136-145)
[2023-03-10 07:02] LABS: ALBUMIN 1.9 g/dl (3.4-5.0); BLOOD UREA NITROGEN 7.3 mg/dL (7-18); CO2 29 mmol/L (21-32); GLUCOSE,RANDOM 109 mg/dL (74-106); MAGNESIUM 1.9 mg/dL (1.8-2.4)
[2023-03-10 07:03] LABS: PHOSPHOROUS 2.6 mg/dL (2.5-4.9); SGPT/ALT 59 U/L (13-61)
[2023-03-10 07:05] LABS: BILIRUBIN,TOTAL 0.8 mg/dL (0.2-1); CREATININE 0.4 mg/dL (0.55-1.3); SGOT/AST 92 U/L (15-37); TOT PROT 4.5 g/dl (6.4-8.2)
[2023-03-10 07:06] LABS: ALK PHOS 128 U/L (45-117)
[2023-03-10 07:07] LABS: ANION GAP 8 MMOL/L (8-16); POTASSIUM 2.7 mmol/L (3.5-5.1)
[2023-03-10] MEDS: KCL 10 MEQ IVPB 10 MEQ/100 ML INFUS.BAG IVPB SCH ×3 (08:16→11:46)
[2023-03-10] MEDS: TAMSULOSIN HCL 0.4 MG CAP PO SCH (08:22)
[2023-03-10] MEDS ORDERED: POTASSIUM CHLORIDE ORAL LIQUID 20 MEQ/15 ML PO ONE (08:37)
[2023-03-10 09:10] LABS: ANISOCYTOSIS 1+; MACROCYTOSIS 1+
[2023-03-10] MEDS: CALCIUM 500MG/VIT-D 200 UNITS COMBO TABLET (FP) PO SCH (09:45)
[2023-03-10] MEDS: CITALOPRAM HYDROBROMIDE 20 MG TABLET PO SCH (09:46)
[2023-03-10] MEDS: METOPROLOL TARTRATE 50 MG TABLET (FP) PO SCH ×2 (09:46→21:13)
[2023-03-10] MEDS: NAPH,MB-DB/K PH,MBDB POWDER PACKET PO SCH ×2 (09:46→21:13)
[2023-03-10] MEDS: ENOXAPARIN NA (PORCINE) 40 MG/0.4 ML DISP.SYRIN SQ SCH (09:46)
[2023-03-10] MEDS: FUROSEMIDE 40 MG/4 ML INJECTABLE VIAL IVPUSH SCH (13:47)
[2023-03-10 16:08] LABS: CHLORIDE 94 mmol/L (98-107); POTASSIUM 3.3 mmol/L (3.5-5.1); SODIUM 133 mmol/L (136-145)
[2023-03-10 16:10] LABS: ANION GAP 8 MMOL/L (8-16); BLOOD UREA NITROGEN 7.5 mg/dL (7-18); CO2 31 mmol/L (21-32); GLUCOSE,RANDOM 117 mg/dL (74-106); MAGNESIUM 1.6 mg/dL (1.8-2.4)
[2023-03-10 16:13] LABS: CREATININE 0.5 mg/dL (0.55-1.3); PHOSPHOROUS 1.8 mg/dL (2.5-4.9)
[2023-03-10] MEDS: ZINC SULFATE 220 MG CAPSULE (FP) PO SCH (16:13)
[2023-03-10] MEDS: ASCORBIC ACID 250 MG TABLET (FP) PO SCH (16:13)
[2023-03-10] MEDS: MULTIVITAMINS (DAILY MVI) TABLET (FP) PO SCH (16:14)
[2023-03-10 16:17] LABS: CALCIUM 6.6 mg/dL (8.5-10.1)
[2023-03-10] MEDS ORDERED: POTASSIUM PHOSPHATE 30 MM in SODIUM CHLORIDE 250 ML IVPB ONE (16:20)
[2023-03-10] MEDS ORDERED: MAGNESIUM SULF 50% (8.12 MEQ/2 ML-1 GM VIAL) IVPB ONE (16:22)
[2023-03-11] MEDS: FUROSEMIDE 40 MG/4 ML INJECTABLE VIAL IVPUSH SCH ×2 (06:36→14:28)
[2023-03-11 07:24] LABS: HEMATOCRIT 24.7 % (35.4-49); HEMOGLOBIN 8.7 GM/dL (11.7-16.9); MCHC 35.4 g/dl (32.0-35.9); MEAN CELL VOLUME 90.4 fl (80-96); MEAN PLT VOLUME 7.6 fl (7.5-11.1); PLATELET COUNT 322 10^3/uL (134-434); RBC 2.73 M/mm3 (4.00-5.60); RDW 24.5 % (11.9-15.9); WHITE BLOOD COUNT 5.2 K/mm3 (4.0-10.0)
[2023-03-11 07:45] LABS: CHLORIDE 97 mmol/L (98-107); POTASSIUM 3.4 mmol/L (3.5-5.1); SODIUM 133 mmol/L (136-145)
[2023-03-11 07:54] LABS: ALBUMIN 2.1 g/dl (3.4-5.0)
[2023-03-11 07:55] LABS: ANION GAP 7 MMOL/L (8-16); BLOOD UREA NITROGEN 7.1 mg/dL (7-18); CO2 29 mmol/L (21-32); GLUCOSE,RANDOM 98 mg/dL (74-106); MAGNESIUM 2.3 mg/dL (1.8-2.4)
[2023-03-11 07:57] LABS: PHOSPHOROUS 2.2 mg/dL (2.5-4.9)
[2023-03-11 07:58] LABS: CREATININE 0.4 mg/dL (0.55-1.3); SGOT/AST 92 U/L (15-37)
[2023-03-11 07:59] LABS: BILIRUBIN,TOTAL 0.8 mg/dL (0.2-1); SGPT/ALT 70 U/L (13-61); TOT PROT 4.8 g/dl (6.4-8.2)
[2023-03-11] MEDS: TAMSULOSIN HCL 0.4 MG CAP PO SCH (07:59)
[2023-03-11 08:00] LABS: ALK PHOS 132 U/L (45-117)
[2023-03-11 08:07] LABS: CALCIUM 6.6 mg/dL (8.5-10.1)
[2023-03-11 08:42] LABS: ANISOCYTOSIS 2+; MACROCYTOSIS 1+
[2023-03-11] MEDS: CALCIUM 500MG/VIT-D 200 UNITS COMBO TABLET (FP) PO SCH (10:30)
[2023-03-11] MEDS: ENOXAPARIN NA (PORCINE) 40 MG/0.4 ML DISP.SYRIN SQ SCH (10:30)
[2023-03-11] MEDS: METOPROLOL TARTRATE 50 MG TABLET (FP) PO SCH ×2 (10:30→21:45)
[2023-03-11] MEDS: MULTIVITAMINS (DAILY MVI) TABLET (FP) PO SCH (10:30)
[2023-03-11] MEDS: ZINC SULFATE 220 MG CAPSULE (FP) PO SCH (10:30)
[2023-03-11] MEDS: ASCORBIC ACID 250 MG TABLET (FP) PO SCH (10:30)
[2023-03-11] MEDS: CITALOPRAM HYDROBROMIDE 20 MG TABLET PO SCH (10:30)
[2023-03-11] MEDS: POTASSIUM CHLORIDE TABS 20 MEQ TABLET.ER (FP) PO SCH ×2 (10:30→21:45)
[2023-03-11] MEDS: NAPH,MB-DB/K PH,MBDB POWDER PACKET PO SCH ×2 (10:30→21:45)
[2023-03-11 18:45] VITALS: BMI 27.8
[2023-03-12 09:28] LABS: HEMATOCRIT 28.6 % (35.4-49); HEMOGLOBIN 9.8 GM/dL (11.7-16.9); MCH 31.3 pg (25.7-33.7); MCHC 34.2 g/dl (32.0-35.9); MEAN CELL VOLUME 91.5 fl (80-96); MEAN PLT VOLUME 6.9 fl (7.5-11.1); PLATELET COUNT 363 10^3/uL (134-434); RBC 3.13 M/mm3 (4.00-5.60); RDW 24.4 % (11.9-15.9); WHITE BLOOD COUNT 6.3 K/mm3 (4.0-10.0)
[2023-03-12 09:44] LABS: POTASSIUM 3.8 mmol/L (3.5-5.1)
[2023-03-12 09:50] LABS: ALBUMIN 2.3 g/dl (3.4-5.0); MAGNESIUM 2.2 mg/dL (1.8-2.4)
[2023-03-12 09:51] LABS: BLOOD UREA NITROGEN 9.6 mg/dL (7-18)
[2023-03-12 09:53] LABS: CREATININE 0.4 mg/dL (0.55-1.3)
[2023-03-12 09:54] LABS: BILIRUBIN,TOTAL 0.8 mg/dL (0.2-1); PHOSPHOROUS 2.6 mg/dL (2.5-4.9)
[2023-03-12] MEDS ORDERED: FUROSEMIDE 40 MG/4 ML INJECTABLE VIAL IVPUSH SCH (10:00)
[2023-03-12 10:15] LABS: CALCIUM 7.6 mg/dL (8.5-10.1)
[2023-03-12] MEDS: ENOXAPARIN NA (PORCINE) 40 MG/0.4 ML DISP.SYRIN SQ SCH (10:19)
[2023-03-12] MEDS: TAMSULOSIN HCL 0.4 MG CAP PO SCH (10:20)
[2023-03-12] MEDS: ASCORBIC ACID 250 MG TABLET (FP) PO SCH (10:20)
[2023-03-12] MEDS: METOPROLOL TARTRATE 50 MG TABLET (FP) PO SCH ×2 (10:20→22:03)
[2023-03-12] MEDS: CALCIUM 500MG/VIT-D 200 UNITS COMBO TABLET (FP) PO SCH (10:20)
[2023-03-12] MEDS: MULTIVITAMINS (DAILY MVI) TABLET (FP) PO SCH (10:20)
[2023-03-12] MEDS: POTASSIUM CHLORIDE TABS 20 MEQ TABLET.ER (FP) PO SCH ×2 (10:20→22:25)
[2023-03-12] MEDS: ZINC SULFATE 220 MG CAPSULE (FP) PO SCH (10:20)
[2023-03-12] MEDS: NAPH,MB-DB/K PH,MBDB POWDER PACKET PO SCH ×2 (10:20→22:03)
[2023-03-12] MEDS: CITALOPRAM HYDROBROMIDE 20 MG TABLET PO SCH (10:20)
[2023-03-12] MEDS: FUROSEMIDE 40 MG TABLET (FP) PO SCH (10:20)
[2023-03-12 10:28] LABS: ANISOCYTOSIS 2+; MACROCYTOSIS 1+
[2023-03-13 08:41] LABS: HEMOGLOBIN 10.2 GM/dL (11.7-16.9); MCH 31.4 pg (25.7-33.7); MCHC 33.9 g/dl (32.0-35.9); MEAN CELL VOLUME 92.5 fl (80-96); MEAN PLT VOLUME 7.1 fl (7.5-11.1); PLATELET COUNT 434 10^3/uL (134-434); RBC 3.25 M/mm3 (4.00-5.60); RDW 24.3 % (11.9-15.9); WHITE BLOOD COUNT 7.3 K/mm3 (4.0-10.0)
[2023-03-13 08:45] LABS: INR 1.48 (0.83-1.09); PROTHROMBIN TIME (PATIENT) 17.1 SEC (9.7-13.0)
[2023-03-13 08:48] LABS: ACTIVATED PTT 29.3 SECONDS (25.2-36.5)
[2023-03-13 09:00] LABS: CHLORIDE 101 mmol/L (98-107); POTASSIUM 3.6 mmol/L (3.5-5.1); SODIUM 133 mmol/L (136-145)
[2023-03-13 09:17] LABS: ALBUMIN 2.2 g/dl (3.4-5.0); ANION GAP 9 MMOL/L (8-16); BLOOD UREA NITROGEN 9.2 mg/dL (7-18); CO2 23 mmol/L (21-32); GLUCOSE,RANDOM 84 mg/dL (74-106)
[2023-03-13 09:20] LABS: CREATININE 0.3 mg/dL (0.55-1.3); PHOSPHOROUS 1.9 mg/dL (2.5-4.9); SGOT/AST 72 U/L (15-37); SGPT/ALT 71 U/L (13-61)
[2023-03-13 09:21] LABS: BILIRUBIN,TOTAL 0.6 mg/dL (0.2-1); TOT PROT 4.8 g/dl (6.4-8.2)
[2023-03-13 09:22] LABS: ALK PHOS 135 U/L (45-117); CALCIUM 6.8 mg/dL (8.5-10.1)
[2023-03-13] MEDS: POTASSIUM CHLORIDE TABS 20 MEQ TABLET.ER (FP) PO SCH ×2 (10:05→22:51)
[2023-03-13] MEDS: ENOXAPARIN NA (PORCINE) 40 MG/0.4 ML DISP.SYRIN SQ SCH (10:05)
[2023-03-13] MEDS: NAPH,MB-DB/K PH,MBDB POWDER PACKET PO SCH ×2 (10:06→22:51)
[2023-03-13] MEDS: METOPROLOL TARTRATE 50 MG TABLET (FP) PO SCH ×2 (10:06→22:51)
[2023-03-13] MEDS: CITALOPRAM HYDROBROMIDE 20 MG TABLET PO SCH (10:06)
[2023-03-13] MEDS: ZINC SULFATE 220 MG CAPSULE (FP) PO SCH (10:06)
[2023-03-13] MEDS: TAMSULOSIN HCL 0.4 MG CAP PO SCH (10:06)
[2023-03-13] MEDS: CALCIUM 500MG/VIT-D 200 UNITS COMBO TABLET (FP) PO SCH (10:06)
[2023-03-13] MEDS: FUROSEMIDE 40 MG TABLET (FP) PO SCH (10:06)
[2023-03-13] MEDS: ASCORBIC ACID 250 MG TABLET (FP) PO SCH (10:06)
[2023-03-13] MEDS: MULTIVITAMINS (DAILY MVI) TABLET (FP) PO SCH (10:06)
[2023-03-13 11:35] LABS: ANISOCYTOSIS 2+; MACROCYTOSIS 0; OVALOCYTE 2+; TEAR DROP CELLS 1+
[2023-03-13] MEDS ORDERED: CALCIUM GLUCONATE 10% - 1,000 MG/10 ML VIAL IVPB ONE (15:15)
[2023-03-13] MEDS: BANATROL PLUS POWDER PACKET PO SCH (22:52)
[2023-03-14] MEDS: BANATROL PLUS POWDER PACKET PO SCH ×5 (06:47→22:23)
[2023-03-14 08:26] LABS: HEMATOCRIT 28.4 % (35.4-49); HEMOGLOBIN 9.7 GM/dL (11.7-16.9); MCH 31.4 pg (25.7-33.7); MCHC 34.1 g/dl (32.0-35.9); MEAN CELL VOLUME 91.9 fl (80-96); PLATELET COUNT 468 10^3/uL (134-434); RBC 3.09 M/mm3 (4.00-5.60); RDW 23.6 % (11.9-15.9); WHITE BLOOD COUNT 7.2 K/mm3 (4.0-10.0)
[2023-03-14 08:34] LABS: POTASSIUM 4.5 mmol/L (3.5-5.1)
[2023-03-14 08:41] LABS: CREATININE 0.4 mg/dL (0.55-1.3)
[2023-03-14 08:42] LABS: ALBUMIN 2.3 g/dl (3.4-5.0); BILIRUBIN,TOTAL 0.5 mg/dL (0.2-1); BLOOD UREA NITROGEN 9.4 mg/dL (7-18); CALCIUM 7.7 mg/dL (8.5-10.1); TOT PROT 4.9 g/dl (6.4-8.2)
[2023-03-14 08:45] LABS: PHOSPHOROUS 2.4 mg/dL (2.5-4.9)
[2023-03-14 09:59] VITALS: RESP 18
[2023-03-14] MEDS: ENOXAPARIN NA (PORCINE) 40 MG/0.4 ML DISP.SYRIN SQ SCH (10:00)
[2023-03-14] MEDS: FUROSEMIDE 40 MG TABLET (FP) PO SCH (10:00)
[2023-03-14] MEDS: POTASSIUM CHLORIDE TABS 20 MEQ TABLET.ER (FP) PO SCH ×3 (10:00→22:23)
[2023-03-14] MEDS: METOPROLOL TARTRATE 50 MG TABLET (FP) PO SCH ×2 (10:01→22:05)
[2023-03-14] MEDS: CITALOPRAM HYDROBROMIDE 20 MG TABLET PO SCH (10:01)
[2023-03-14] MEDS: MULTIVITAMINS (DAILY MVI) TABLET (FP) PO SCH (10:01)
[2023-03-14] MEDS: ASCORBIC ACID 250 MG TABLET (FP) PO SCH (10:01)
[2023-03-14] MEDS: CALCIUM 500MG/VIT-D 200 UNITS COMBO TABLET (FP) PO SCH (10:01)
[2023-03-14] MEDS: NAPH,MB-DB/K PH,MBDB POWDER PACKET PO SCH ×3 (10:01→22:24)
[2023-03-14] MEDS: TAMSULOSIN HCL 0.4 MG CAP PO SCH (10:01)
[2023-03-14] MEDS: ZINC SULFATE 220 MG CAPSULE (FP) PO SCH (10:02)
[2023-03-15] MEDS: BANATROL PLUS POWDER PACKET PO SCH ×3 (06:53→21:41)
[2023-03-15 07:57] LABS: HEMATOCRIT 28.2 % (35.4-49); HEMOGLOBIN 9.8 GM/dL (11.7-16.9); MCH 31.8 pg (25.7-33.7); MCHC 34.8 g/dl (32.0-35.9); MEAN CELL VOLUME 91.4 fl (80-96); MEAN PLT VOLUME 7.4 fl (7.5-11.1); PLATELET COUNT 527 10^3/uL (134-434); RBC 3.09 M/mm3 (4.00-5.60); RDW 24.5 % (11.9-15.9); WHITE BLOOD COUNT 7.8 K/mm3 (4.0-10.0)
[2023-03-15 08:13] LABS: POTASSIUM 4.3 mmol/L (3.5-5.1)
[2023-03-15 08:16] LABS: ALBUMIN 2.3 g/dl (3.4-5.0); BLOOD UREA NITROGEN 11.6 mg/dL (7-18); CALCIUM 7.8 mg/dL (8.5-10.1); MAGNESIUM 1.8 mg/dL (1.8-2.4)
[2023-03-15 08:20] LABS: BILIRUBIN,TOTAL 0.7 mg/dL (0.2-1); CREATININE 0.5 mg/dL (0.55-1.3); PHOSPHOROUS 2.3 mg/dL (2.5-4.9)
[2023-03-15 08:22] LABS: TOT PROT 5.1 g/dl (6.4-8.2)
[2023-03-15] MEDS: ZINC SULFATE 220 MG CAPSULE (FP) PO SCH ×2 (10:32→10:50)
[2023-03-15] MEDS: POTASSIUM CHLORIDE TABS 20 MEQ TABLET.ER (FP) PO SCH ×3 (10:32→21:41)
[2023-03-15] MEDS: METOPROLOL TARTRATE 25 MG TABLET (FP) PO SCH ×2 (10:32→21:33)
[2023-03-15] MEDS: FUROSEMIDE 40 MG TABLET (FP) PO SCH (10:32)
[2023-03-15] MEDS: ENOXAPARIN NA (PORCINE) 40 MG/0.4 ML DISP.SYRIN SQ SCH ×2 (10:32→10:50)
[2023-03-15] MEDS: MULTIVITAMINS (DAILY MVI) TABLET (FP) PO SCH ×2 (10:32→10:51)
[2023-03-15] MEDS: TAMSULOSIN HCL 0.4 MG CAP PO SCH (10:32)
[2023-03-15] MEDS: ASCORBIC ACID 250 MG TABLET (FP) PO SCH ×2 (10:32→10:51)
[2023-03-15] MEDS: CALCIUM 500MG/VIT-D 200 UNITS COMBO TABLET (FP) PO SCH ×2 (10:32→10:50)
[2023-03-15] MEDS: CITALOPRAM HYDROBROMIDE 20 MG TABLET PO SCH ×2 (10:33→10:50)
[2023-03-15] MEDS: NAPH,MB-DB/K PH,MBDB POWDER PACKET PO SCH ×3 (10:33→21:41)
[2023-03-15] MEDS ORDERED: ACETAMINOPHEN 1000 MG/100 ML BAG IVPB ONE (20:05)
[2023-03-15] MEDS ORDERED: MAGNESIUM SULF 50% (8.12 MEQ/2 ML-1 GM VIAL) IVPB ONE (21:45)
[2023-03-15] MEDS ORDERED: METOPROLOL TARTRATE 25 MG TABLET (FP) PO ONE (22:36)
[2023-03-16] MEDS: BANATROL PLUS POWDER PACKET PO SCH ×3 (06:35→21:44)
[2023-03-16 07:49] LABS: HEMATOCRIT 31.1 % (35.4-49); HEMOGLOBIN 10.8 GM/dL (11.7-16.9); MCH 31.6 pg (25.7-33.7); MCHC 34.6 g/dl (32.0-35.9); MEAN CELL VOLUME 91.4 fl (80-96); MEAN PLT VOLUME 6.7 fl (7.5-11.1); PLATELET COUNT 610 10^3/uL (134-434); RDW 23.8 % (11.9-15.9); WHITE BLOOD COUNT 8.7 K/mm3 (4.0-10.0)
[2023-03-16 08:08] LABS: POTASSIUM 4.2 mmol/L (3.5-5.1)
[2023-03-16 08:16] LABS: ALBUMIN 2.6 g/dl (3.4-5.0); MAGNESIUM 2.4 mg/dL (1.8-2.4)
[2023-03-16 08:18] LABS: CALCIUM 7.8 mg/dL (8.5-10.1)
[2023-03-16 08:20] LABS: CREATININE 0.6 mg/dL (0.55-1.3)
[2023-03-16 08:22] LABS: BILIRUBIN,TOTAL 0.5 mg/dL (0.2-1); TOT PROT 5.4 g/dl (6.4-8.2)
[2023-03-16] MEDS: ACETAMINOPHEN 1000 MG/100 ML BAG IVPB SCH ×3 (10:14→21:46)
[2023-03-16] MEDS: TAMSULOSIN HCL 0.4 MG CAP PO SCH (10:15)
[2023-03-16] MEDS: CITALOPRAM HYDROBROMIDE 20 MG TABLET PO SCH (10:15)
[2023-03-16] MEDS: POTASSIUM CHLORIDE TABS 20 MEQ TABLET.ER (FP) PO SCH ×2 (10:15→21:44)
[2023-03-16] MEDS: METOPROLOL TARTRATE 25 MG TABLET (FP) PO SCH (10:15)
[2023-03-16] MEDS: ENOXAPARIN NA (PORCINE) 40 MG/0.4 ML DISP.SYRIN SQ SCH (10:15)
[2023-03-16] MEDS: FUROSEMIDE 40 MG TABLET (FP) PO SCH (10:16)
[2023-03-16] MEDS: NAPH,MB-DB/K PH,MBDB POWDER PACKET PO SCH ×2 (10:26→21:48)
[2023-03-16] MEDS: ASCORBIC ACID 250 MG TABLET (FP) PO SCH (10:26)
[2023-03-16] MEDS: ZINC SULFATE 220 MG CAPSULE (FP) PO SCH (10:26)
[2023-03-16] MEDS: CALCIUM 500MG/VIT-D 200 UNITS COMBO TABLET (FP) PO SCH (10:26)
[2023-03-16] MEDS: MULTIVITAMINS (DAILY MVI) TABLET (FP) PO SCH (10:26)
[2023-03-16] MEDS: METOPROLOL TARTRATE 50 MG TABLET (FP) PO SCH (21:46)
[2023-03-17] MEDS: ACETAMINOPHEN 1000 MG/100 ML BAG IVPB SCH ×3 (06:39→16:32)
[2023-03-17] MEDS: BANATROL PLUS POWDER PACKET PO SCH ×2 (06:40→14:12)
[2023-03-17 07:10] LABS: HEMATOCRIT 26.5 % (35.4-49); HEMOGLOBIN 9.4 GM/dL (11.7-16.9); MCH 32.4 pg (25.7-33.7); MCHC 35.3 g/dl (32.0-35.9); MEAN CELL VOLUME 91.8 fl (80-96); MEAN PLT VOLUME 6.6 fl (7.5-11.1); PLATELET COUNT 579 10^3/uL (134-434); RBC 2.89 M/mm3 (4.00-5.60); RDW 24.2 % (11.9-15.9); WHITE BLOOD COUNT 8.3 K/mm3 (4.0-10.0)
[2023-03-17 07:34] LABS: POTASSIUM 4.7 mmol/L (3.5-5.1)
[2023-03-17 07:41] LABS: BLOOD UREA NITROGEN 14.1 mg/dL (7-18)
[2023-03-17 07:42] LABS: ALBUMIN 2.4 g/dl (3.4-5.0); PHOSPHOROUS 2.9 mg/dL (2.5-4.9)
[2023-03-17 07:44] LABS: BILIRUBIN,TOTAL 0.3 mg/dL (0.2-1); CALCIUM 7.5 mg/dL (8.5-10.1); CREATININE 0.4 mg/dL (0.55-1.3); TOT PROT 4.8 g/dl (6.4-8.2)
[2023-03-17 07:45] LABS: MAGNESIUM 2.4 mg/dL (1.8-2.4)
[2023-03-17] MEDS: TAMSULOSIN HCL 0.4 MG CAP PO SCH (08:17)
[2023-03-17] MEDS: CITALOPRAM HYDROBROMIDE 20 MG TABLET PO SCH (10:15)
[2023-03-17] MEDS: MULTIVITAMINS (DAILY MVI) TABLET (FP) PO SCH (10:15)
[2023-03-17] MEDS: FUROSEMIDE 40 MG TABLET (FP) PO SCH (10:15)
[2023-03-17] MEDS: METOPROLOL TARTRATE 50 MG TABLET (FP) PO SCH (10:15)
[2023-03-17] MEDS: ASCORBIC ACID 250 MG TABLET (FP) PO SCH (10:16)
[2023-03-17] MEDS: ENOXAPARIN NA (PORCINE) 40 MG/0.4 ML DISP.SYRIN SQ SCH (10:16)
[2023-03-17] MEDS: NAPH,MB-DB/K PH,MBDB POWDER PACKET PO SCH (10:22)
[2023-03-17] MEDS: ZINC SULFATE 220 MG CAPSULE (FP) PO SCH (10:22)
[2023-03-17] MEDS: POTASSIUM CHLORIDE TABS 20 MEQ TABLET.ER (FP) PO SCH (10:22)
[2023-03-17] MEDS: CALCIUM 500MG/VIT-D 200 UNITS COMBO TABLET (FP) PO SCH (10:22)
[2023-03-17 15:00] VITALS: BP 126/72; PULSE 94; TEMP 98.2
== END 2023-03-17 17:50 | disposition home or self-care (01) | DRG 194 ==
LOC: JER 08:49 → JERBED 13:52 → J4W 22:47
PROVIDERS: ADMIT Internal Medicine; ATTEND Internal Medicine
DX: I11.0 Hypertensive heart disease with heart failure (principal); I50.33 Acute on chronic diastolic (congestive) heart failure; E11.9 Type 2 diabetes mellitus without complications; E83.51 Hypocalcemia; E87.1 Hypo-osmolality and hyponatremia; J18.9 Pneumonia, unspecified organism; J96.01 Acute respiratory failure with hypoxia; C79.51 Secondary malignant neoplasm of bone; N40.0 Benign prostatic hyperplasia without lower urinary tract symptoms; J81.0 Acute pulmonary edema; E78.5 Hyperlipidemia, unspecified; C61 Malignant neoplasm of prostate; F32.A Depression, unspecified; E87.6 Hypokalemia; R94.31 Abnormal electrocardiogram [ECG] [EKG]; M54.59 Other low back pain; E83.39 Other disorders of phosphorus metabolism; D49.0 Neoplasm of unspecified behavior of digestive system; E83.42 Hypomagnesemia; N34.2 Other urethritis; N34.0 Urethral abscess; T83.098A Other mechanical complication of other urinary catheter, initial encounter; Y84.8 Other medical procedures as the cause of abnormal reaction of the patient, or of later complication, without mention of misadventure at the time of the procedure; I47.1 Supraventricular tachycardia; Z66 Do not resuscitate; Z71.89 Other specified counseling
CPT/HCPCS: 0241U-QW; 36415; 71045-TC-FY; 71275-TC; 74018-TC-FY; 80048; 80053; 81003; 82150; 82962; 83605; 83690; 83735; 83880; 84100; 84300; 84484; 85025; 85027; 85610; 85730; 87040; 87086; 87324; 87449; 87798; 87899; 88300-TC; 93005; 93010; 93306-TC; 93970-TC; 94660; 94761; 97116-GP; 97163-GP; 99285-25; C9803-CS; Q9967; U0003; U0005

== ENCOUNTER 2023-03-28 11:11 | Inpatient (IN) | payer OTHER ==
[2023-03-28 11:41] VITALS: BMI 26.6
[2023-03-28 12:10] LABS: HEMATOCRIT 30.6 % (35.4-49); HEMOGLOBIN 10.5 GM/dL (11.7-16.9); MCHC 34.3 g/dl (32.0-35.9); MEAN CELL VOLUME 90.3 fl (80-96); PLATELET COUNT 434 10^3/uL (134-434); RBC 3.39 M/mm3 (4.00-5.60); RDW 21.5 % (11.9-15.9); WHITE BLOOD COUNT 7.9 K/mm3 (4.0-10.0)
[2023-03-28 12:26] LABS: POTASSIUM 3.8 mmol/L (3.5-5.1)
[2023-03-28 12:30] LABS: ALBUMIN 2.5 g/dl (3.4-5.0); BLOOD UREA NITROGEN 6.9 mg/dL (7-18); CALCIUM 7.6 mg/dL (8.5-10.1); MAGNESIUM 2.2 mg/dL (1.8-2.4)
[2023-03-28 12:32] LABS: ANISOCYTOSIS 2+; MACROCYTOSIS 0
[2023-03-28 12:34] LABS: CREATININE 0.6 mg/dL (0.55-1.3)
[2023-03-28 12:35] LABS: BILIRUBIN,TOTAL 0.4 mg/dL (0.2-1); TOT PROT 6.2 g/dl (6.4-8.2)
[2023-03-28] MEDS ORDERED: ACETAMINOPHEN 1000 MG/100 ML BAG IVPB ONE (14:13)
[2023-03-28] MEDS ORDERED: FAMOTIDINE 20 MG/50 ML IVPB 20 MG/50 ML MG IVPB ONE (14:13)
[2023-03-28] MEDS ORDERED: MAG HYDROX/AL HYDROX/SIMETH 30 ML UNIT-DOSE CUP PO ONE (14:13)
[2023-03-28] MEDS ORDERED: Methylnaltrexone Bromide 12 MG/0.6 ML KIT SQ ONE (14:39)
[2023-03-28] MEDS ORDERED: LACTULOSE 20 GM/30 ML UDC (FOR ORAL USE ONLY) PO ONE (16:23)
[2023-03-28] MEDS ORDERED: ACETAMINOPHEN 1000 MG/100 ML BAG IVPB PRN (16:29)
[2023-03-28] MEDS ORDERED: LACTATED RINGERS SOLUTION 500 ML IV SCH (16:30)
[2023-03-28] MEDS ORDERED: LACTULOSE 20 GM/30 ML UDC (FOR ORAL USE ONLY) ONE (16:33)
[2023-03-28] MEDS: POLYETHYLENE GLYCOL (HEALTHYLAX) 3350 17 GM PACKET PO SCH (17:22)
[2023-03-28] MEDS ORDERED: POLYETHYLENE GLYCOL (HEALTHYLAX) 3350 17 GM PACKET ONE (17:24)
[2023-03-28] MEDS ORDERED: SENNOSIDES 8.6MG TABLET (FP) PO SCH (22:00)
[2023-03-29] MEDS: POLYETHYLENE GLYCOL (HEALTHYLAX) 3350 17 GM PACKET PO SCH ×3 (06:47→23:02)
[2023-03-29] MEDS: LIDOCAINE 5% TOPICAL PATCH TP SCH ×2 (06:47→10:43)
[2023-03-29 07:43] LABS: HEMATOCRIT 28.2 % (35.4-49); HEMOGLOBIN 9.7 GM/dL (11.7-16.9); MCH 30.9 pg (25.7-33.7); MCHC 34.3 g/dl (32.0-35.9); MEAN PLT VOLUME 6.4 fl (7.5-11.1); PLATELET COUNT 393 10^3/uL (134-434); RBC 3.13 M/mm3 (4.00-5.60); RDW 21.3 % (11.9-15.9); WHITE BLOOD COUNT 7.7 K/mm3 (4.0-10.0)
[2023-03-29 07:58] LABS: POTASSIUM 3.6 mmol/L (3.5-5.1)
[2023-03-29] MEDS ORDERED: METHYLNALTREXONE BROMIDE 8 MG/0.4 ML SYRINGE SQ ONE (08:00)
[2023-03-29 08:01] LABS: ALBUMIN 2.3 g/dl (3.4-5.0); CALCIUM 7.2 mg/dL (8.5-10.1); MAGNESIUM 1.9 mg/dL (1.8-2.4)
[2023-03-29 08:04] LABS: CREATININE 0.4 mg/dL (0.55-1.3); PHOSPHOROUS 2.6 mg/dL (2.5-4.9)
[2023-03-29 08:05] LABS: BILIRUBIN,TOTAL 0.4 mg/dL (0.2-1); TOT PROT 5.7 g/dl (6.4-8.2)
[2023-03-29 09:41] LABS: ANISOCYTOSIS 3+; MACROCYTOSIS 0
[2023-03-29] MEDS: CALCIUM 500MG/VIT-D 200 UNITS COMBO TABLET (FP) PO SCH (10:44)
[2023-03-29] MEDS: TAMSULOSIN HCL 0.4 MG CAP PO SCH (10:44)
[2023-03-29] MEDS: ENOXAPARIN NA (PORCINE) 40 MG/0.4 ML DISP.SYRIN SQ SCH (10:44)
[2023-03-29] MEDS: MULTIVITAMINS (DAILY MVI) TABLET (FP) PO SCH (10:44)
[2023-03-29] MEDS: CITALOPRAM HYDROBROMIDE 20 MG TABLET PO SCH (10:44)
[2023-03-29] MEDS: ZINC SULFATE 220 MG CAPSULE (FP) PO SCH ×2 (10:44→11:02)
[2023-03-29] MEDS: amLODIPine BESYLATE 5 MG TABLET (FP) PO SCH (10:44)
[2023-03-29] MEDS: POTASSIUM CHLORIDE TABS 20 MEQ TABLET.ER (FP) PO SCH ×2 (10:44→11:00)
[2023-03-29] MEDS: FUROSEMIDE 40 MG TABLET (FP) PO SCH (10:45)
[2023-03-29] MEDS: ASCORBIC ACID 250 MG TABLET (FP) PO SCH (10:45)
[2023-03-29] MEDS ORDERED: MINERAL OIL ENEMA 133 ML ENEMA RC ONE (11:44)
[2023-03-29] MEDS ORDERED: ACETAMINOPHEN 325 MG TABLET (FP) PO PRN (12:45)
[2023-03-29] MEDS: morphine SO4 SUSTAINED ACTING 30 MG TABLET.SA PO SCH ×2 (15:14→23:02)
[2023-03-29] MEDS ORDERED: HYDROmorphone HCl 2 MG/ML VIAL IVPB PRN (16:24)
[2023-03-29] MEDS ORDERED: METOCLOPRAMIDE HCL INJECTION 10 MG/2 ML VIAL IVPUSH ONE (16:25)
[2023-03-29 21:54] LABS: EPI CELLS 28 /uL (0-25.1); HYALINE CASTS 4 /uL (0-3.1); URINE APPEARANCE CLEAR; URINE BILIRUBIN NEGATIVE (NEGATIVE); URINE COLOR YELLOW; URINE GLUCOSE (UA) NEGATIVE (NEGATIVE); URINE KETONE NEGATIVE (NEGATIVE); URINE LEUK ESTERASE 1+ (NEGATIVE); URINE NITRITE POSITIVE (NEGATIVE); URINE PROTEIN TRACE (NEGATIVE); URINE RBC 12 /uL (0-23.9); URINE WBC 141 /uL (0-25.8)
[2023-03-29] MEDS: LIDOCAINE PATCH REMOVAL MC SCH (23:04)
[2023-03-30] LABS: URINE BACTERIA 78.9 /uL (0-1359); YEAST NEGATIVE (NEGATIVE)
[2023-03-30] MEDS: morphine SO4 SUSTAINED ACTING 30 MG TABLET.SA PO SCH ×3 (06:02→22:08)
[2023-03-30] MEDS: POLYETHYLENE GLYCOL (HEALTHYLAX) 3350 17 GM PACKET PO SCH ×3 (06:02→22:08)
[2023-03-30 08:13] LABS: BASO % 1.1 % (0-2.0); EOS % 4.1 % (0-4.5); HEMATOCRIT 29.9 % (35.4-49); LYMPH % 15.3 % (8-40); MCH 30.4 pg (25.7-33.7); MCHC 33.6 g/dl (32.0-35.9); MEAN CELL VOLUME 90.3 fl (80-96); MEAN PLT VOLUME 6.5 fl (7.5-11.1); MONO % 12.8 % (3.8-10.2); NEUT % 66.7 % (42.8-82.8); PLATELET COUNT 391 10^3/uL (134-434); RBC 3.31 M/mm3 (4.00-5.60); RDW 21.4 % (11.9-15.9); WHITE BLOOD COUNT 7.5 K/mm3 (4.0-10.0)
[2023-03-30 08:49] LABS: POTASSIUM 3.6 mmol/L (3.5-5.1)
[2023-03-30 08:51] LABS: ALBUMIN 2.3 g/dl (3.4-5.0); BLOOD UREA NITROGEN 6.9 mg/dL (7-18); CALCIUM 7.6 mg/dL (8.5-10.1); MAGNESIUM 2.1 mg/dL (1.8-2.4)
[2023-03-30 08:54] LABS: CREATININE 0.4 mg/dL (0.55-1.3)
[2023-03-30 08:56] LABS: BILIRUBIN,TOTAL 0.4 mg/dL (0.2-1); TOT PROT 5.8 g/dl (6.4-8.2)
[2023-03-30] MEDS: ENOXAPARIN NA (PORCINE) 40 MG/0.4 ML DISP.SYRIN SQ SCH (09:29)
[2023-03-30] MEDS: CITALOPRAM HYDROBROMIDE 20 MG TABLET PO SCH (09:30)
[2023-03-30] MEDS: LIDOCAINE 5% TOPICAL PATCH TP SCH (09:30)
[2023-03-30] MEDS: amLODIPine BESYLATE 5 MG TABLET (FP) PO SCH (09:30)
[2023-03-30] MEDS: TAMSULOSIN HCL 0.4 MG CAP PO SCH (09:30)
[2023-03-30] MEDS: FUROSEMIDE 40 MG TABLET (FP) PO SCH (09:30)
[2023-03-30] MEDS: Methylnaltrexone Bromide 12 MG/0.6 ML KIT SQ SCH (10:57)
[2023-03-30] MEDS: MINERAL OIL/PET HY-PHL TOPICAL OINTMENT 454 GM JAR TP SCH (18:17)
[2023-03-30] MEDS: LIDOCAINE PATCH REMOVAL MC SCH (22:09)
[2023-03-31] MEDS: POLYETHYLENE GLYCOL (HEALTHYLAX) 3350 17 GM PACKET PO SCH ×3 (05:42→21:32)
[2023-03-31] MEDS: morphine SO4 SUSTAINED ACTING 30 MG TABLET.SA PO SCH ×3 (05:42→21:30)
[2023-03-31] MEDS ORDERED: LACTATED RINGERS SOLUTION 1,000 ML/1,000 ML INFUS.BAG IV SCH (07:45)
[2023-03-31] MEDS: TAMSULOSIN HCL 0.4 MG CAP PO SCH (10:16)
[2023-03-31] MEDS: amLODIPine BESYLATE 5 MG TABLET (FP) PO SCH (10:16)
[2023-03-31] MEDS: LIDOCAINE 5% TOPICAL PATCH TP SCH (10:16)
[2023-03-31] MEDS: ENOXAPARIN NA (PORCINE) 40 MG/0.4 ML DISP.SYRIN SQ SCH (10:16)
[2023-03-31] MEDS: FUROSEMIDE 40 MG TABLET (FP) PO SCH (10:16)
[2023-03-31] MEDS: CITALOPRAM HYDROBROMIDE 20 MG TABLET PO SCH (10:16)
[2023-03-31] MEDS: MINERAL OIL/PET HY-PHL TOPICAL OINTMENT 454 GM JAR TP SCH (10:19)
[2023-03-31] MEDS: Methylnaltrexone Bromide 12 MG/0.6 ML KIT SQ SCH (12:09)
[2023-03-31] MEDS: SIMETHICONE 40 MG/0.6 ML BOTTLE PO SCH ×2 (14:50→17:36)
[2023-03-31] MEDS: LIDOCAINE PATCH REMOVAL MC SCH (21:38)
[2023-04-01] MEDS: SIMETHICONE 40 MG/0.6 ML BOTTLE PO SCH (00:32)
[2023-04-01] MEDS: morphine SO4 SUSTAINED ACTING 30 MG TABLET.SA PO SCH ×3 (05:52→22:39)
[2023-04-01] MEDS: POLYETHYLENE GLYCOL (HEALTHYLAX) 3350 17 GM PACKET PO SCH ×2 (05:54→17:31)
[2023-04-01 08:47] LABS: BASO % 0.8 % (0-2.0); EOS % 3.8 % (0-4.5); HEMATOCRIT 28.5 % (35.4-49); HEMOGLOBIN 9.7 GM/dL (11.7-16.9); LYMPH % 17.3 % (8-40); MCH 30.6 pg (25.7-33.7); MCHC 34.1 g/dl (32.0-35.9); MEAN CELL VOLUME 89.8 fl (80-96); MEAN PLT VOLUME 6.6 fl (7.5-11.1); MONO % 12.9 % (3.8-10.2); NEUT % 65.2 % (42.8-82.8); PLATELET COUNT 395 10^3/uL (134-434); RBC 3.17 M/mm3 (4.00-5.60); RDW 20.9 % (11.9-15.9); WHITE BLOOD COUNT 7.3 K/mm3 (4.0-10.0)
[2023-04-01 09:13] LABS: POTASSIUM 4.5 mmol/L (3.5-5.1)
[2023-04-01 09:31] LABS: BLOOD UREA NITROGEN 14.4 mg/dL (7-18); CALCIUM 8.7 mg/dL (8.5-10.1); MAGNESIUM 2.1 mg/dL (1.8-2.4)
[2023-04-01 09:33] LABS: CREATININE 0.5 mg/dL (0.55-1.3); PHOSPHOROUS 4.6 mg/dL (2.5-4.9)
[2023-04-01 09:46] LABS: ANISOCYTOSIS 0; MACROCYTOSIS 0
[2023-04-01] MEDS: CITALOPRAM HYDROBROMIDE 20 MG TABLET PO SCH (10:49)
[2023-04-01] MEDS: POTASSIUM CHLORIDE TABS 20 MEQ TABLET.ER (FP) PO SCH ×2 (10:49→10:57)
[2023-04-01] MEDS: amLODIPine BESYLATE 5 MG TABLET (FP) PO SCH (10:49)
[2023-04-01] MEDS: FUROSEMIDE 40 MG TABLET (FP) PO SCH (10:49)
[2023-04-01] MEDS: TAMSULOSIN HCL 0.4 MG CAP PO SCH (10:49)
[2023-04-01] MEDS: MINERAL OIL/PET HY-PHL TOPICAL OINTMENT 454 GM JAR TP SCH (10:49)
[2023-04-01] MEDS: ASCORBIC ACID 250 MG TABLET (FP) PO SCH ×2 (10:50→10:58)
[2023-04-01] MEDS: LIDOCAINE 5% TOPICAL PATCH TP SCH (10:50)
[2023-04-01] MEDS: ENOXAPARIN NA (PORCINE) 40 MG/0.4 ML DISP.SYRIN SQ SCH (10:50)
[2023-04-01] MEDS: ZINC SULFATE 220 MG CAPSULE (FP) PO SCH (10:57)
[2023-04-01] MEDS ORDERED: PEG 3350/NA SULF BICARB CL/KCL 4000 ML SOLN.RECON PO ONE (16:00)
[2023-04-01] MEDS: LIDOCAINE PATCH REMOVAL MC SCH (22:38)
[2023-04-02] MEDS: morphine SO4 SUSTAINED ACTING 30 MG TABLET.SA PO SCH ×3 (06:05→21:19)
[2023-04-02 09:01] LABS: BASO % 0.8 % (0-2.0); EOS % 4.1 % (0-4.5); HEMATOCRIT 25.9 % (35.4-49); HEMOGLOBIN 8.8 GM/dL (11.7-16.9); LYMPH % 14.9 % (8-40); MCH 30.4 pg (25.7-33.7); MCHC 33.9 g/dl (32.0-35.9); MEAN CELL VOLUME 89.6 fl (80-96); MEAN PLT VOLUME 6.7 fl (7.5-11.1); MONO % 13.1 % (3.8-10.2); NEUT % 67.1 % (42.8-82.8); PLATELET COUNT 378 10^3/uL (134-434); RBC 2.89 M/mm3 (4.00-5.60); RDW 20.2 % (11.9-15.9); WHITE BLOOD COUNT 8.5 K/mm3 (4.0-10.0)
[2023-04-02 09:20] LABS: POTASSIUM 4.1 mmol/L (3.5-5.1)
[2023-04-02] MEDS: MINERAL OIL/PET HY-PHL TOPICAL OINTMENT 454 GM JAR TP SCH (09:24)
[2023-04-02 09:28] LABS: ALBUMIN 2.1 g/dl (3.4-5.0); CALCIUM 8.4 mg/dL (8.5-10.1)
[2023-04-02 09:29] LABS: BLOOD UREA NITROGEN 15.8 mg/dL (7-18)
[2023-04-02 09:31] LABS: PHOSPHOROUS 4.1 mg/dL (2.5-4.9)
[2023-04-02 09:32] LABS: CREATININE 0.6 mg/dL (0.55-1.3)
[2023-04-02 09:33] LABS: BILIRUBIN,TOTAL 0.8 mg/dL (0.2-1); TOT PROT 5.4 g/dl (6.4-8.2)
[2023-04-02] MEDS: ENOXAPARIN NA (PORCINE) 40 MG/0.4 ML DISP.SYRIN SQ SCH (09:36)
[2023-04-02] MEDS: CALCIUM 500MG/VIT-D 200 UNITS COMBO TABLET (FP) PO SCH ×2 (09:36→09:45)
[2023-04-02] MEDS: TAMSULOSIN HCL 0.4 MG CAP PO SCH (09:36)
[2023-04-02] MEDS: ZINC SULFATE 220 MG CAPSULE (FP) PO SCH ×2 (09:36→09:45)
[2023-04-02] MEDS: POTASSIUM CHLORIDE TABS 20 MEQ TABLET.ER (FP) PO SCH ×2 (09:36→09:44)
[2023-04-02] MEDS: ASCORBIC ACID 500 MG TABLET (FP) PO SCH ×2 (09:36→09:45)
[2023-04-02] MEDS: amLODIPine BESYLATE 5 MG TABLET (FP) PO SCH (09:37)
[2023-04-02] MEDS: MULTIVITAMINS (DAILY MVI) TABLET (FP) PO SCH ×2 (09:37→09:45)
[2023-04-02] MEDS: CITALOPRAM HYDROBROMIDE 20 MG TABLET PO SCH (09:37)
[2023-04-02] MEDS: FUROSEMIDE 40 MG TABLET (FP) PO SCH (09:37)
[2023-04-02] MEDS: LIDOCAINE 5% TOPICAL PATCH TP SCH (09:37)
[2023-04-02] MEDS: LIDOCAINE PATCH REMOVAL MC SCH (21:20)
[2023-04-03] MEDS: morphine SO4 SUSTAINED ACTING 30 MG TABLET.SA PO SCH ×3 (06:37→21:21)
[2023-04-03 09:30] LABS: HEMATOCRIT 27.1 % (35.4-49); MCH 29.7 pg (25.7-33.7); MCHC 33.2 g/dl (32.0-35.9); MEAN CELL VOLUME 89.4 fl (80-96); MEAN PLT VOLUME 6.6 fl (7.5-11.1); PLATELET COUNT 423 10^3/uL (134-434); RBC 3.03 M/mm3 (4.00-5.60); RDW 20.5 % (11.9-15.9); WHITE BLOOD COUNT 8.6 K/mm3 (4.0-10.0)
[2023-04-03] MEDS: amLODIPine BESYLATE 5 MG TABLET (FP) PO SCH (09:31)
[2023-04-03] MEDS: FUROSEMIDE 40 MG TABLET (FP) PO SCH (09:31)
[2023-04-03] MEDS: ENOXAPARIN NA (PORCINE) 40 MG/0.4 ML DISP.SYRIN SQ SCH (09:31)
[2023-04-03] MEDS: CITALOPRAM HYDROBROMIDE 20 MG TABLET PO SCH (09:31)
[2023-04-03] MEDS: TAMSULOSIN HCL 0.4 MG CAP PO SCH (09:31)
[2023-04-03] MEDS: LIDOCAINE 5% TOPICAL PATCH TP SCH (09:32)
[2023-04-03] MEDS: CALCIUM 500MG/VIT-D 200 UNITS COMBO TABLET (FP) PO SCH (09:32)
[2023-04-03] MEDS: POTASSIUM CHLORIDE TABS 20 MEQ TABLET.ER (FP) PO SCH (09:32)
[2023-04-03] MEDS: ZINC SULFATE 220 MG CAPSULE (FP) PO SCH (09:32)
[2023-04-03] MEDS: MINERAL OIL/PET HY-PHL TOPICAL OINTMENT 454 GM JAR TP SCH (09:33)
[2023-04-03] MEDS: ASCORBIC ACID 500 MG TABLET (FP) PO SCH (09:33)
[2023-04-03] MEDS: MULTIVITAMINS (DAILY MVI) TABLET (FP) PO SCH (09:33)
[2023-04-03 09:45] LABS: POTASSIUM 4.3 mmol/L (3.5-5.1)
[2023-04-03 09:46] LABS: CALCIUM 8.3 mg/dL (8.5-10.1)
[2023-04-03 09:47] LABS: ALBUMIN 2.3 g/dl (3.4-5.0); MAGNESIUM 2.3 mg/dL (1.8-2.4)
[2023-04-03 09:51] LABS: CREATININE 0.5 mg/dL (0.55-1.3); PHOSPHOROUS 3.4 mg/dL (2.5-4.9)
[2023-04-03 09:53] LABS: BILIRUBIN,TOTAL 0.4 mg/dL (0.2-1); TOT PROT 5.5 g/dl (6.4-8.2)
[2023-04-03 10:09] LABS: ANISOCYTOSIS 1+; MACROCYTOSIS 1+
[2023-04-03] MEDS: SIMETHICONE 80 MG TAB.CHEW (FP) PO SCH ×2 (13:16→21:21)
[2023-04-03] MEDS: LIDOCAINE PATCH REMOVAL MC SCH (21:24)
[2023-04-04] MEDS: SIMETHICONE 80 MG TAB.CHEW (FP) PO SCH ×3 (06:10→22:00)
[2023-04-04] MEDS: morphine SO4 SUSTAINED ACTING 30 MG TABLET.SA PO SCH ×3 (06:11→22:01)
[2023-04-04 08:41] LABS: HEMATOCRIT 25.3 % (35.4-49); HEMOGLOBIN 8.5 GM/dL (11.7-16.9); MCH 29.8 pg (25.7-33.7); MCHC 33.5 g/dl (32.0-35.9); MEAN CELL VOLUME 89.1 fl (80-96); MEAN PLT VOLUME 6.7 fl (7.5-11.1); PLATELET COUNT 424 10^3/uL (134-434); RBC 2.84 M/mm3 (4.00-5.60); RDW 20.3 % (11.9-15.9); WHITE BLOOD COUNT 9.3 K/mm3 (4.0-10.0)
[2023-04-04 09:06] LABS: ALBUMIN 2.1 g/dl (3.4-5.0); BLOOD UREA NITROGEN 13.6 mg/dL (7-18)
[2023-04-04 09:07] LABS: CALCIUM 8.2 mg/dL (8.5-10.1)
[2023-04-04 09:08] LABS: MAGNESIUM 2.2 mg/dL (1.8-2.4)
[2023-04-04 09:09] LABS: CREATININE 0.5 mg/dL (0.55-1.3)
[2023-04-04 09:11] LABS: BILIRUBIN,TOTAL 0.8 mg/dL (0.2-1); TOT PROT 5.4 g/dl (6.4-8.2)
[2023-04-04 09:25] LABS: ANISOCYTOSIS 1+; MACROCYTOSIS 1+
[2023-04-04] MEDS: POLYETHYLENE GLYCOL (HEALTHYLAX) 3350 17 GM PACKET PO SCH ×3 (09:48→22:00)
[2023-04-04] MEDS: FUROSEMIDE 40 MG TABLET (FP) PO SCH (09:49)
[2023-04-04] MEDS: TAMSULOSIN HCL 0.4 MG CAP PO SCH (09:49)
[2023-04-04] MEDS: amLODIPine BESYLATE 5 MG TABLET (FP) PO SCH (09:49)
[2023-04-04] MEDS: CITALOPRAM HYDROBROMIDE 20 MG TABLET PO SCH (09:49)
[2023-04-04] MEDS: ENOXAPARIN NA (PORCINE) 40 MG/0.4 ML DISP.SYRIN SQ SCH (09:49)
[2023-04-04] MEDS: MULTIVITAMINS (DAILY MVI) TABLET (FP) PO SCH (09:51)
[2023-04-04] MEDS: CALCIUM 500MG/VIT-D 200 UNITS COMBO TABLET (FP) PO SCH (09:51)
[2023-04-04] MEDS: POTASSIUM CHLORIDE TABS 20 MEQ TABLET.ER (FP) PO SCH (09:51)
[2023-04-04] MEDS: LIDOCAINE 5% TOPICAL PATCH TP SCH (09:51)
[2023-04-04] MEDS: ZINC SULFATE 220 MG CAPSULE (FP) PO SCH (09:51)
[2023-04-04] MEDS: ASCORBIC ACID 500 MG TABLET (FP) PO SCH (09:52)
[2023-04-04] MEDS: MINERAL OIL/PET HY-PHL TOPICAL OINTMENT 454 GM JAR TP SCH (09:52)
[2023-04-04] MEDS ORDERED: MINERAL OIL ENEMA 133 ML ENEMA RC PRN (10:49)
[2023-04-04] MEDS: DOCUSATE SODIUM 100 MG CAPSULE (FP) PO SCH ×2 (12:25→22:00)
[2023-04-04 15:20] LABS: EPI CELLS 4 /uL (0-25.1); HYALINE CASTS 0 /uL (0-3.1); URINE APPEARANCE CLEAR; URINE BACTERIA 12 /uL (0-1359); URINE BILIRUBIN NEGATIVE (NEGATIVE); URINE COLOR YELLOW; URINE GLUCOSE (UA) NEGATIVE (NEGATIVE); URINE KETONE NEGATIVE (NEGATIVE); URINE LEUK ESTERASE 1+ (NEGATIVE); URINE NITRITE NEGATIVE (NEGATIVE); URINE PROTEIN TRACE (NEGATIVE); URINE RBC 30 /uL (0-23.9); URINE UROBILINOGEN 0.2 mg/dL (0.2-1.0); URINE WBC 22 /uL (0-25.8)
[2023-04-04] MEDS ORDERED: CEFAZOLIN 1 GM in DEXTROSE 5%-WATER - 50 ML IVPB ONE (15:25)
[2023-04-04] MEDS ORDERED: CEFTRIAXONE 1,000 MG in DEXTROSE 5%-WATER - 50 ML IVPB ONE (15:27)
[2023-04-04] MEDS ORDERED: CEFTRIAXONE 1 GM in DEXTROSE 5%-WATER - 50 ML IVPB ONE ×2 (15:32→17:00)
[2023-04-04] MEDS: LIDOCAINE PATCH REMOVAL MC SCH (22:00)
[2023-04-04] MEDS: SENNOSIDES 8.6MG TABLET (FP) PO SCH (22:01)
[2023-04-05] MEDS: POLYETHYLENE GLYCOL (HEALTHYLAX) 3350 17 GM PACKET PO SCH ×3 (05:31→21:50)
[2023-04-05] MEDS: morphine SO4 SUSTAINED ACTING 30 MG TABLET.SA PO SCH ×3 (05:32→21:50)
[2023-04-05] MEDS: SIMETHICONE 80 MG TAB.CHEW (FP) PO SCH ×3 (05:32→21:50)
[2023-04-05] MEDS ORDERED: CEFTRIAXONE 1,000 MG in DEXTROSE 5%-WATER - 50 ML IVPB ONE (09:37)
[2023-04-05] MEDS: LIDOCAINE 5% TOPICAL PATCH TP SCH (09:59)
[2023-04-05] MEDS: FUROSEMIDE 40 MG TABLET (FP) PO SCH (09:59)
[2023-04-05] MEDS: MULTIVITAMINS (DAILY MVI) TABLET (FP) PO SCH ×2 (09:59→10:04)
[2023-04-05] MEDS: CALCIUM 500MG/VIT-D 200 UNITS COMBO TABLET (FP) PO SCH (09:59)
[2023-04-05] MEDS: TAMSULOSIN HCL 0.4 MG CAP PO SCH (09:59)
[2023-04-05] MEDS: DOCUSATE SODIUM 100 MG CAPSULE (FP) PO SCH ×2 (10:00→21:50)
[2023-04-05] MEDS: CITALOPRAM HYDROBROMIDE 20 MG TABLET PO SCH (10:00)
[2023-04-05] MEDS: POTASSIUM CHLORIDE TABS 20 MEQ TABLET.ER (FP) PO SCH (10:00)
[2023-04-05] MEDS: amLODIPine BESYLATE 5 MG TABLET (FP) PO SCH (10:01)
[2023-04-05] MEDS: ZINC SULFATE 220 MG CAPSULE (FP) PO SCH (10:01)
[2023-04-05] MEDS: ASCORBIC ACID 500 MG TABLET (FP) PO SCH (10:02)
[2023-04-05] MEDS: MINERAL OIL/PET HY-PHL TOPICAL OINTMENT 454 GM JAR TP SCH (10:02)
[2023-04-05] MEDS ORDERED: CEFTRIAXONE 1 GM in DEXTROSE 5%-WATER - 50 ML IVPB ONE (11:15)
[2023-04-05] MEDS ORDERED: LACTULOSE 20 GM/30 ML UDC (FOR ORAL USE ONLY) PO ONE (12:00)
[2023-04-05] MEDS: SENNOSIDES 8.6MG TABLET (FP) PO SCH (21:50)
[2023-04-05] MEDS: LIDOCAINE PATCH REMOVAL MC SCH (21:53)
[2023-04-06] MEDS: morphine SO4 SUSTAINED ACTING 30 MG TABLET.SA PO SCH ×3 (06:34→21:45)
[2023-04-06] MEDS: POLYETHYLENE GLYCOL (HEALTHYLAX) 3350 17 GM PACKET PO SCH ×3 (06:34→21:45)
[2023-04-06] MEDS: SIMETHICONE 80 MG TAB.CHEW (FP) PO SCH ×3 (06:34→21:45)
[2023-04-06] MEDS ORDERED: METHYLNALTREXONE BROMIDE 8 MG/0.4 ML SYRINGE SQ SCH (10:00)
[2023-04-06] MEDS: DOCUSATE SODIUM 100 MG CAPSULE (FP) PO SCH ×2 (10:26→21:45)
[2023-04-06] MEDS: LIDOCAINE 5% TOPICAL PATCH TP SCH (10:26)
[2023-04-06] MEDS: TAMSULOSIN HCL 0.4 MG CAP PO SCH (10:26)
[2023-04-06] MEDS: POTASSIUM CHLORIDE TABS 20 MEQ TABLET.ER (FP) PO SCH ×2 (10:27→10:38)
[2023-04-06] MEDS: CITALOPRAM HYDROBROMIDE 20 MG TABLET PO SCH (10:27)
[2023-04-06] MEDS: CALCIUM 500MG/VIT-D 200 UNITS COMBO TABLET (FP) PO SCH (10:27)
[2023-04-06] MEDS: ZINC SULFATE 220 MG CAPSULE (FP) PO SCH ×2 (10:27→10:37)
[2023-04-06] MEDS: FUROSEMIDE 40 MG TABLET (FP) PO SCH (10:27)
[2023-04-06] MEDS: MULTIVITAMINS (DAILY MVI) TABLET (FP) PO SCH (10:27)
[2023-04-06] MEDS: amLODIPine BESYLATE 5 MG TABLET (FP) PO SCH (10:28)
[2023-04-06] MEDS: ASCORBIC ACID 500 MG TABLET (FP) PO SCH (10:29)
[2023-04-06] MEDS: MINERAL OIL/PET HY-PHL TOPICAL OINTMENT 454 GM JAR TP SCH (10:29)
[2023-04-06] MEDS ORDERED: ACETAMINOPHEN 1000 MG/100 ML BAG IVPB ONE (10:36)
[2023-04-06] MEDS ORDERED: CEFTRIAXONE 1 GM in DEXTROSE 5%-WATER - 50 ML IVPB SCH (11:30)
[2023-04-06] MEDS: Methylnaltrexone Bromide 12 MG/0.6 ML KIT SQ SCH (15:44)
[2023-04-06] MEDS: SENNOSIDES 8.6MG TABLET (FP) PO SCH (21:45)
[2023-04-06] MEDS: LIDOCAINE PATCH REMOVAL MC SCH (21:49)
[2023-04-07] MEDS: oxyCODONE HCL 5 MG TABLET PO PRN ×3 (04:09→18:30)
[2023-04-07] MEDS: SIMETHICONE 80 MG TAB.CHEW (FP) PO SCH ×3 (06:16→22:43)
[2023-04-07] MEDS: morphine SO4 SUSTAINED ACTING 30 MG TABLET.SA PO SCH ×3 (06:16→22:42)
[2023-04-07] MEDS: POLYETHYLENE GLYCOL (HEALTHYLAX) 3350 17 GM PACKET PO SCH ×3 (06:16→22:42)
[2023-04-07 06:26] VITALS: RESP 18
[2023-04-07 07:36] LABS: HEMATOCRIT 25.5 % (35.4-49); HEMOGLOBIN 8.7 GM/dL (11.7-16.9); MCH 29.9 pg (25.7-33.7); MEAN CELL VOLUME 87.8 fl (80-96); MEAN PLT VOLUME 6.3 fl (7.5-11.1); PLATELET COUNT 506 10^3/uL (134-434); RBC 2.91 M/mm3 (4.00-5.60); RDW 20.2 % (11.9-15.9); WHITE BLOOD COUNT 9.3 K/mm3 (4.0-10.0)
[2023-04-07 07:55] LABS: CALCIUM 8.5 mg/dL (8.5-10.1)
[2023-04-07 07:56] LABS: ALBUMIN 2.2 g/dl (3.4-5.0); BLOOD UREA NITROGEN 14.3 mg/dL (7-18); MAGNESIUM 2.3 mg/dL (1.8-2.4)
[2023-04-07 07:59] LABS: CREATININE 0.6 mg/dL (0.55-1.3); PHOSPHOROUS 3.5 mg/dL (2.5-4.9)
[2023-04-07 08:01] LABS: BILIRUBIN,TOTAL 0.4 mg/dL (0.2-1); TOT PROT 5.9 g/dl (6.4-8.2)
[2023-04-07] MEDS ORDERED: NITROFURANTOIN MACROCRYSTAL 50 MG CAPSULE (FP) PO SCH (08:45)
[2023-04-07 10:09] LABS: ANISOCYTOSIS 2+; MACROCYTOSIS 0; TEAR DROP CELLS 1+
[2023-04-07] MEDS: DOCUSATE SODIUM 100 MG CAPSULE (FP) PO SCH ×2 (10:25→22:43)
[2023-04-07] MEDS: TAMSULOSIN HCL 0.4 MG CAP PO SCH (10:26)
[2023-04-07] MEDS: FUROSEMIDE 40 MG TABLET (FP) PO SCH (10:26)
[2023-04-07] MEDS: POTASSIUM CHLORIDE TABS 20 MEQ TABLET.ER (FP) PO SCH (10:26)
[2023-04-07] MEDS: MINERAL OIL/PET HY-PHL TOPICAL OINTMENT 454 GM JAR TP SCH (10:27)
[2023-04-07] MEDS: amLODIPine BESYLATE 5 MG TABLET (FP) PO SCH (10:27)
[2023-04-07] MEDS: CITALOPRAM HYDROBROMIDE 20 MG TABLET PO SCH (10:27)
[2023-04-07] MEDS: LIDOCAINE 5% TOPICAL PATCH TP SCH (10:29)
[2023-04-07] MEDS: CALCIUM 500MG/VIT-D 200 UNITS COMBO TABLET (FP) PO SCH (10:29)
[2023-04-07] MEDS: ZINC SULFATE 220 MG CAPSULE (FP) PO SCH (10:29)
[2023-04-07] MEDS: Methylnaltrexone Bromide 12 MG/0.6 ML KIT SQ SCH (10:30)
[2023-04-07] MEDS: MULTIVITAMINS (DAILY MVI) TABLET (FP) PO SCH (10:30)
[2023-04-07] MEDS: ASCORBIC ACID 500 MG TABLET (FP) PO SCH (10:30)
[2023-04-07] MEDS: NITROFURANTOIN MACROCRYSTAL 50 MG CAPSULE (FP) PO SCH ×2 (12:34→18:28)
[2023-04-07] MEDS: SENNOSIDES 8.6MG TABLET (FP) PO SCH (22:43)
[2023-04-07] MEDS: LIDOCAINE PATCH REMOVAL MC SCH (22:44)
[2023-04-08] MEDS: NITROFURANTOIN MACROCRYSTAL 50 MG CAPSULE (FP) PO SCH ×4 (01:49→17:59)
[2023-04-08] MEDS: SIMETHICONE 80 MG TAB.CHEW (FP) PO SCH ×2 (06:56→13:57)
[2023-04-08] MEDS: POLYETHYLENE GLYCOL (HEALTHYLAX) 3350 17 GM PACKET PO SCH ×2 (06:56→13:57)
[2023-04-08] MEDS: morphine SO4 SUSTAINED ACTING 30 MG TABLET.SA PO SCH ×2 (06:56→13:56)
[2023-04-08] MEDS: DOCUSATE SODIUM 100 MG CAPSULE (FP) PO SCH (09:16)
[2023-04-08] MEDS: amLODIPine BESYLATE 5 MG TABLET (FP) PO SCH (09:16)
[2023-04-08] MEDS: TAMSULOSIN HCL 0.4 MG CAP PO SCH (09:16)
[2023-04-08] MEDS: FUROSEMIDE 40 MG TABLET (FP) PO SCH (09:16)
[2023-04-08] MEDS: LIDOCAINE 5% TOPICAL PATCH TP SCH (09:16)
[2023-04-08] MEDS: CITALOPRAM HYDROBROMIDE 20 MG TABLET PO SCH (09:16)
[2023-04-08] MEDS: MINERAL OIL/PET HY-PHL TOPICAL OINTMENT 454 GM JAR TP SCH (09:17)
[2023-04-08] MEDS: POTASSIUM CHLORIDE TABS 20 MEQ TABLET.ER (FP) PO SCH (09:17)
[2023-04-08] MEDS: ASCORBIC ACID 500 MG TABLET (FP) PO SCH (09:18)
[2023-04-08] MEDS: CALCIUM 500MG/VIT-D 200 UNITS COMBO TABLET (FP) PO SCH (09:18)
[2023-04-08] MEDS: MULTIVITAMINS (DAILY MVI) TABLET (FP) PO SCH (09:18)
[2023-04-08] MEDS: ZINC SULFATE 220 MG CAPSULE (FP) PO SCH (09:18)
[2023-04-08] MEDS ORDERED: HYDROmorphone HCl 2 MG/ML VIAL IVPB ONE (11:00)
[2023-04-08] MEDS: Methylnaltrexone Bromide 12 MG/0.6 ML KIT SQ SCH (11:42)
[2023-04-08 14:20] VITALS: BP 135/71; PULSE 80; TEMP 97.8
== END 2023-04-08 18:00 | DRG 247 ==
LOC: JER 11:11 → JERBED 16:05 → J7W 18:57 → OBSVTOIN 03-29 14:48
PROVIDERS: ADMIT Internal Medicine
DX: K56.41 Fecal impaction (principal); C61 Malignant neoplasm of prostate; C79.51 Secondary malignant neoplasm of bone; I50.32 Chronic diastolic (congestive) heart failure; T40.2X5A Adverse effect of other opioids, initial encounter; R33.8 Other retention of urine; G89.3 Neoplasm related pain (acute) (chronic); E11.22 Type 2 diabetes mellitus with diabetic chronic kidney disease; I13.0 Hypertensive heart and chronic kidney disease with heart failure and stage 1 through stage 4 chronic kidney disease, or unspecified chronic kidney disease; N18.9 Chronic kidney disease, unspecified
CPT/HCPCS: 36415; 74019-TC-FY; 74177-TC; 74178-TC; 80048; 80053; 81003; 82550; 82728; 82962; 83540; 83550; 83605; 83690; 83735; 84100; 84484; 85025; 87086; 87186; 93005; 93010; 94010; 97116-GP; 97162-GP; 99285-25; C9803-CS; G0378; Q9967; U0003; U0005